=== PATIENT | female | born 1970 | race Caucasian/White ===

== ENCOUNTER 2022-11-30 13:54 | Outpatient (CLI) | payer OTHER, SELFPAY | END 2022-11-30 13:55 | disposition home or self-care (01) | PROVIDERS: PCP Nurse Practitioner Family; Visit Provider Nurse Practitioner Family | DX: N95.1 Menopausal and female climacteric states (principal); Z13.0 Encounter for screening for diseases of the blood and blood-forming organs and certain disorders involving the immune mechanism | CPT/HCPCS: 82670; 82728; 83001; 83002; 84443; 84480; 85025 ==

== ENCOUNTER 2022-12-17 10:06 | Outpatient (CLI) | payer OTHER, SELFPAY | END 2022-12-17 10:07 | disposition home or self-care (01) | PROVIDERS: PCP Nurse Practitioner Family; Visit Provider Nurse Practitioner Family | DX: Z13.6 Encounter for screening for cardiovascular disorders (principal); Z13.1 Encounter for screening for diabetes mellitus | CPT/HCPCS: 80061; 82947 ==

== ENCOUNTER 2023-06-15 13:25 | Outpatient (CLI) | payer OTHER, SELFPAY | END 2023-06-15 13:26 | disposition home or self-care (01) | PROVIDERS: PCP Nurse Practitioner Family; Visit Provider Nurse Practitioner Family | DX: M16.11 Unilateral primary osteoarthritis, right hip (principal); Z95.2 Presence of prosthetic heart valve; Z79.01 Long term (current) use of anticoagulants | CPT/HCPCS: 80053; 85025 ==

== ENCOUNTER 2023-09-30 08:34 | Outpatient (CLI) | payer OTHER, SELFPAY ==
--- OUTSIDE RECORDS SUMMARY | 2023-09-30 08:38 | XMS_ITS | Encounter Summary ---
Author Organization [facility] Address [address] [place] [address] Care Team Providers Care Residential Sales Rep Name Role Phone Willow Guajardo M.D. Primary Care Provider [phone] Reason for Visit * Physical Therapy (Routine) - Authorized Specialty Diagnoses / Procedures Referred By Alexx espinoza Referred To Contact Diagnoses Aftercare Total Hip Arthroplasty Procedures PT Ongoing treatment Symone Trujillo APRN, C.N.P., D.N.P. [address] [place] [phone] [facility] Region Referral ID Status Reason Start Date Expiration Date V isits Requested Visits Authorized [id number] Authorized 07/21/2023 03/07/2024 99 [phone] Encounter Details Date Type Department Care Team (Latest Contact Info) Description 09/22/2023 11:45 AM CDT Clinical Support Department of Rehabilitation Services in [address] [phone] Symone Trujillo APRN, C.N.P., D.N.P. [address] [place] [phone] Sonali Morrison P.T. Aftercare Total Hip Arthroplasty Social History Tobacco Use Types Packs/Day Years Used Date Smoking Tobacco: Never Passive Smoke Exposure: Never Smokeless Tobacco: Never Alcohol Use Standard Drinks/Week Comments Not Currently 0 (1 standard drink = 0.6 oz pure alcohol) 1 drink approx every 2 weeks. [facility] [employer] Answer Date Recorded In the past 12 months has e [employer], gas, oil, or water [employer] threatened to shut off services in your home? No 07/14/2023 Humiliation, Afraid, Rape, and Kick questionnair e Answer Date Recorded Within the last year, have y ou been afraid of your partner or ex-partner? No 07/14/2023 Within the last year, have y ou been humiliated or emotionally abused in other ways by your partner or ex-partner? Yes Within the last year, have y ou been kicked, hit, slapped, or otherwise physically hurt by your partner or ex-partner? No 07/14/2023 Within the last year, have y ou been raped or forced to have any kind of sexual activity by your partner or ex-partner? No 07/14/2023 Social Connection and Isolat ion Panel [NHANES] Answer Date Recorded In a typical week, how many times do you talk on the phone with family, friends, or neighbors? More than three times a week 03/05/2022 How often do you get togethe r with friends or relatives? Once a week 03/05/2022 How often do you attend chur or temple services? Patient declined 03/05/2022 Do you belong to any clubs o r organizations such as mormonism groups, unions, fraternal or athletic groups, or school groups? No 03/05/2022 How often do you attend meet ings of the clubs or organizations you belong to? Never 03/05/2022 Are you , , di vorced, , never , or living with a partner? 03/05/2022 AUDIT-C Answer Date Recorded Q1: How often do you have a drink containing alc ohol? Monthly or less 03/05/2022 Q2: How many drinks containi ng alcohol do you have on a typical day when you are drinking? 1 or 2 03/05/2022 Q3: How often do you have si x or more drinks on one occasion? Never 03/05/2022 Overall Financial Resource Strain (CARDIA) Answe r Date Recorded How hard is it for you to pa y for the very basics like food, housing, medical care, and heating? Not hard at all 03/05/2022 PHQ-2 Answer Date Recorded PHQ-2 Score 0 11/18/2021 [facility] - Occupational Stress Questionnaire Answer Date Recorded Do you feel stress - tense, restless, nervous, or anxious, or unable to sleep at night because your mind is troubled all the time - these days? Not at all 03/05/2022 Exercise Vital Sign Answer Date Recorde d On average, how many days pe r week do you engage in moderate to strenuous exercise (like a brisk walk)? 5 days 04/04/2023 On average, how many minutes do you engage in exercise at this level? 30 min 04/04/2023 Hunger Vital Sign Answer Date Recorded Within the past 12 months, y ou worried that your food would run out before you got the money to buy more. Never true 07/14/19 Within the past 12 months, t he food you bought just didn't last and you didn't have money to get more. Never true 07/14/2023 PRAPARE - Transportation Answer Date Re corded In the past 12 months, has l ack of transportation kept you from medical appointments or from getting medications? No 10/2023 In the past 12 months, has l ack of transportation kept you from meetings, work, or from getting things needed for daily living? No 07/14/2023 Nutrition Answer Date Recorded On average, how many serving s of fruits and vegetables do you eat per day (serving size is equal to 1 cup or approximately the size of a tennis ball)? 3-5 04/04/2023 Dental Answer Date Recorded Dental: Regular Dentist Yes 04/02/20 24 Employment Answer Date Recorded Employment status Employed and actively working without restrictions 04/04/2023 Housing Stability Answer Date Recorded What is your living situation today? I have a [facility] place to live 07/14/2023 Education Answer Date Recorded What is the highest level of school you have completed or the highest degree you have received? Bachelor's degree (e.g., BA, AB, BS) 12/03/2018 Sex and Gender Information Value Date Recorded Sex Assigned at Female 06/08/2023 10:37 AM CDT Gender Identity Female 06/08/2023 10:37 AM CDT Sexual Orientation Straight 06/08/2023 10 :37 AM CDT documented as of this encounter Progress Notes * Sonali Morrison PClarenceT. - 09/22/2023 11:45 AM CDT Physical Therapy Outpatient Treatment Note SUBJECTIVE Patient's Name: Meeta Urbina Patricia Referring Provider: Symone Trujillo APRN, C.N.* Visit Diagnosis: 1. Aftercare Total Hip Arthroplasty Payor: [facility] / Plan: [facility] CARE / Product Type: Medicaid HMO / No data recorded Epic Visit Count: 9 Patient comments: pt presents to PT reporting continued improvements. States that now she is walking her dogs which is going well. States she has noticed however her right knee seems very tight and she is having pain with bending it fully and can't kneel on it very well. Also patient reports that she was pushing to standing through her arms and felt like a ripping sensation through her left lowerrib area so she took some time off all exercises and is having improvement overall in this area over the past few days. OBJECTIVE Pain: 1/10 on average Ortho Exam Tenderness right lateral hip - diminished today Improved scar mobility with distal inch of scar from incision having the most adhesions Left knee ROM: 142 degree, Right knee ROM: 137 degrees with end range tightness noted TREATMENT Treatment today consisted of: Therapeutic Exercise: SciFit x 10 min level #2 with seat high to avoid a greater hip angle - no pain with this today heel cord stretch off edge of bottom stair x 45 sec Standing hip flexor stretch B on floor and with foot on 2nd step of stairway 30'' each Standing exs holding onto parallel bars: Side and forward step ups x 15 right Standing hip abduction x 10 ea -- with 3 lb ankle wt Standing hip extension x 10 ea --with 3 lb ankle wt Standing hip flexion x 10 ea with 3 lbs ankle wt Mini squat x 15 - at home - going well pt reports toe raises standing erect x 20 heel raises at 45 degree angle x 20 standing glute squeeze Seated heel slide x 20 reps Supine ankle pumps x 20 Supine glute sets x 20 Sit<>stand - pt doing well with this *NBOS on foam pad- not today *quad sets with towel under knee x 15 - at home *quad sets moving into SLR flexion - trial next visit *Supine heel slide with end range hold to maintain stretch to right knee Reviewed verbally: supine hip ER into orange band with legs straight and band around feet x 20 reps- this is going well Home Exercise Program/Education: above routine daily and walking frequently during the day Patient reports good HEP compliance. MANUAL: STM right hip musculature around surgical incision and superior IT band, pt in left sidelying with 2 pillows between knees and this was very comfortable - CFM to scar for improved scar mobility - last 1 inch of scar having most adhesions today Assessment Clinical Impression: Patient presents to physical therapy with signs and symptoms consistent with s/p right KRISTINE on 07/14/23. Functional Goals and Timeframes: PT Goal #1: Patient will be able to ambulate without AD for 1000 feet or greater without limp or pain. PT Goal #1 Date: 10/06/23 PT Goal #2: Patient will have WNL AROM and strength right hip in order to return to PLOF. PT Goal #2 Date: 10/06/23 PT Goal #3: Patient will tolerate a full squat without right hip or groin pain. PT Goal #3 Date: 10/06/23 PT Goal #4: Patient will be I in HEP for right hip s/p KRISTINE to return to PLOF. PT Goal #4 Date: 10/06/23 Plan Plan for next session: con't per s/p KRISTINE pathway, con't focus on right knee ROM next session Time Spent with Patient Therapeutic Interventions Manual Therapy (min): 20 min Therapeutic Exercise (min): 35 min Time Tracking Total Timed Units (min): 55 min Total Treatment Time (min): 55 min documented in this encounter Plan of Treatment Upcoming Encounters Date Type Department Care Team (Latest Contact Info) Description 10/04/2023 9:15 AM CDT Anticoagulation Visit Department of Anticoagulation in [place], [place] [address] [place] [address] Willow Guajardo M.D. [address] [place] [phone] 10/05/2023 8:45 AM CDT Clinical Support Department of Rehabilitation Services in [address] [phone] Symone Trujillo APRN, C.N.P., D.N.P. [address] [place] [phone] Sonali Morrison, P.TClarence 10/25/2023 8:30 AM CDT Clinical Support Department of Rehabilitation Services in [address] [phone] Symone Trujillo APRN, C.N.P., D.N.P. [address] [place] [phone] Sonali Morrison, P.T. 12/16/2023 10:00 AM CDT Appointment Department of Radiology in [address] [phone] Phani Cook M.D. [address] [place] [phone] Discharge Disposition: Home or Self Care 12/20/2023 1:45 PM CDT Office Visit Department of Cardiovascular Diseases in [address] [place] [phone] Phani Cook M.D. 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 [address] [place] [address] [place] [phone] PCP - General Family Medicine 03/28/[address] [place] [address] 10/11/17 documented as of this encounter
--- OUTSIDE RECORDS SUMMARY | 2023-09-30 08:38 | XMS_ITS | Encounter Summary ---
Author Organization [facility] Address [address] [place] [address] Care Team Providers Care Workers Compensation Manager Name Role Phone Willow Guajardo M.D. Primary Care Provider [phone] Reason for Visit * Physical Therapy (Routine) - Authorized Specialty Diagnoses / Procedures Referred By Alexx espinoza Referred To Contact Diagnoses Aftercare Total Hip Arthroplasty Procedures PT Ongoing treatment Symone Trujillo APRN, C.N.P., D.N.P. [address] [place] [phone] [facility] Region Referral ID Status Reason Start Date Expiration Date V isits Requested Visits Authorized [id number] Authorized 07/21/2023 03/07/2024 99 99 Encounter Details Date Type Department Care Team (Latest Contact Info) Description 09/07/2023 12:30 PM CDT Clinical Support Department of Rehabilitation Services in [address] [phone] Symone Trujillo APRN, C.N.P., D.N.P. [address] [place] [phone] Sonali Morrison P.T. Aftercare Total Hip Arthroplasty Social History Tobacco Use Types Packs/Day Years Used Date Smoking Tobacco: Never Passive Smoke Exposure: Never Smokeless Tobacco: Never Alcohol Use Standard Drinks/Week Comments Not Currently 0 (1 standard drink = 0.6 oz pure alcohol) 1 drink approx every 2 weeks. [facility] [employer] Answer Date Recorded In the past 12 months has e [employer], gas, oil, or water [employer] threatened to shut off services in your [...] How often do you attend chur or anabaptist services? Patient declined 03/05/2022 Do you belong to any clubs o r organizations such as alevism groups, unions, fraternal or athletic groups, or [...] Answer Date Recorded PHQ-2 Score 0 11/18/2021 [facility] Occupat ional Health - Occupational Stress [...] this encounter Progress Notes * Sonali Morrison PNorman. - 09/07/2023 12:30 PM CDT Physical Therapy Outpatient Treatment Note SUBJECTIVE Patient's Name: Meeta Urbina Patricia Referring Provider: Symone Trujillo APRN, C.N.* Visit Diagnosis: 1. Aftercare Total Hip Arthroplasty Payor: [facility] / Plan: [facility] CARE / Product Type: Medicaid HMO / No data recorded Epic Visit Count: 8 Patient comments: pt presents to PT doing well today. Patient states she has questions on her limits on rotations and flexion with her hip motion in the usp and when she can do these things. Reports walking continues to go well without any AD needed and driving is also going well without any pain. OBJECTIVE Pain: 1/10 on average Ortho Exam Tenderness right lateral hip - diminished today Improved scar mobility with distal inch of scar from incision having the most adhesions TREATMENT Treatment today consisted of: Therapeutic Exercise: [...] *quad sets moving into SLR flexion - not today - will trail next visit Reviewed verbally: supine hip ER into orange [...] for next session: con't per s/p KRISTINE pathway Time Spent with Patient Therapeutic Interventions Manual Therapy (min): 20 min Therapeutic Exercise (min): 25 min Time Tracking Total Timed Units (min): 45 min Total Treatment Time (min): 45 min documented in this encounter Plan of Treatment Upcoming Encounters Date Type Department Care Team (Latest Contact Info) Description 10/04/2023 9:15 AM CDT Anticoagulation Visit Department of Anticoagulation in [place], [place] [address] [place] [phone] Willow Guajardo M.D. [address] [place] [phone] 10/05/2023 8:45 AM CDT Clinical Support Department of Rehabilitation Services in [address] [phone] Symone Trujillo APRN, C.N.Jigar., D.N.P. [address] [place] [phone] Sonali Morrison P.TClarence 10/25/2023 8:30 AM CDT Clinical Support Department of Rehabilitation Services in [address] [phone] Symone Trujillo APRN, C.N.Jigar., D.N.P. [address] [place] [phone] Sonali Morrison P.T. 12/16/2023 10:00 AM CDT Appointment Department of Radiology in [address] [phone] Phani Cook M.D. [address] [place] [phone] Discharge Disposition: Home or Self Care 12/20/2023 1:45 PM CDT Office Visit Department of Cardiovascular Diseases in [address] [phone] Phani Cook M.D. 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 [address] [place] [phone] PCP - General Family Medicine 03/28/[address] [address] 10/11/17 documented as of this encounter
--- OUTSIDE RECORDS SUMMARY | 2023-09-30 08:38 | XMS_ITS | Encounter Summary ---
Author Organization [facility] Address [address] [place] [address] Care Team Providers Care Wagon Person Name Role Phone Willow Guajardo M.D. Primary Care Provider Reason for Visit * Physical Therapy (Routine) - Authorized Specialty Diagnoses / Procedures Referred By Alexx espinoza Referred To Contact Diagnoses Aftercare Total Hip Arthroplasty Procedures PT Ongoing treatment Symone Trujillo APRN, C.N.P., D.N.P. [address] [place] [phone] [facility] Region Referral ID Status Reason Start Date Expiration Date V isits Requested Visits Authorized [id number] Authorized 07/21/2023 03/07/2024 99 99 Encounter Details Date Type Department Care Team (Latest Contact Info) Description 09/29/2023 11:45 AM CDT Clinical Support Department of Rehabilitation Services in [address] [phone] Symone Trujillo APRN, C.N.P., D.N.P. [address] [place] [phone] Sonali Morrison P.T. Aftercare Total Hip Arthroplasty Social History Tobacco Use Types Packs/Day Years Used Date Smoking Tobacco: Never Passive Smoke Exposure: Never Smokeless Tobacco: Never Alcohol Use Standard Drinks/Week Comments Not Currently 0 (1 standard drink = 0.6 oz pure alcohol) 1 drink approx every 2 weeks. [facility] [employer] Answer Date Recorded In the past 12 months has e [employer], gas, oil, or water [employer] threatened to shut off services in your [...] How often do you attend chur or buddhism services? Patient declined 03/05/2022 Do you belong to any clubs o r organizations such as yazdanism groups, unions, fraternal or athletic groups, or [...] Answer Date Recorded PHQ-2 Score 0 11/18/2021 [facility] of Occupat ional Health - Occupational [...] your living situation today? I have a [facility] place to live 07/14/2023 Education Answer Date [...] AM CDT documented as of this encounter Plan of Treatment Upcoming Encounters Date Type Department Care Team (Latest Contact Info) Description 10/04/2023 9:15 AM CDT Anticoagulation Visit Department of Anticoagulation in [place], [place] [address] [place] [address] Willow Guajardo M.D. [address] [place] [phone] 10/05/2023 8:45 AM CDT Clinical Support Department of Rehabilitation Services in [address] [phone] Symone Trujillo APRN, C.N.P., D.N.P. [address] [place] [phone] Sonali Morrison, P.T. 10/25/2023 8:30 AM CDT Clinical Support Department of Rehabilitation Services in [address] [phone] Symone Trujillo APRN, C.N.P., D.N.P. [address] [place] [phone] Sonali Morrison, P.T. 12/16/2023 10:00 AM CDT Appointment Department of Radiology in [address] [phone] Phani Cook M.D. [address] [place] [phone] Discharge Disposition: Home or Self Care 12/20/2023 1:45 PM CDT Office Visit Department of Cardiovascular Diseases in [address] [phone] Phani Cook M.D. 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 [address] [place] [phone] PCP - General Family Medicine 03/28/[address] [address] 10/11/17 documented as of this encounter
--- OUTSIDE RECORDS SUMMARY | 2023-09-30 08:38 | XMS_ITS | Encounter Summary ---
Author Organization [facility] Address [address] [place] [address] Care Team Providers Care Applied Exercise Physiologist Name Role Phone Willow Guajardo M.D. Primary Care Provider [phone] Reason for Visit * Outpatient (Routine) - Closed Specialty Diagnoses / Procedures Referred By Alexx espinoza Referred To Contact Anticoagulation Diagnoses Extruder Tender (Current) Anticoagulant Treatment Monitoring For Therapeutic Drug Therapy Prosthesis Aortic Valve Willow Guajardo M.D. [address] [phone] [facility] Region Referral ID Status Reason Start Date Expiration Date Visits Re quested Visits Authorized [id number] Closed 01/06/2021 01/06/[phone] Encounter Details Date Type Department Care Team (Latest Contact Info) Description 09/13/2023 8:45 AM CDT Anticoagulation Visit Department of Anticoagulation in [place], [place] [address] [place] [phone] Willow Guajardo M.D. [address] [phone] Extruder Tender (Current) Anticoagulant Treatment; Monitoring For Therapeutic Drug Therapy; Prosthesis Aortic Valve Social History Tobacco Use Types Packs/Day Years Used Date Smoking Tobacco: Never Passive Smoke Exposure: Never Smokeless Tobacco: Never Alcohol Use Standard Drinks/Week Comments Not Currently 0 (1 standard drink = 0.6 oz pure alcohol) 1 drink approx every 2 weeks. [facility] Utilities Answer Date Recorded In the past 12 months has [employer], [employer], or water [employer] threatened to shut off services in your [...] How often do you attend chur or adventist services? Patient declined 03/05/2022 Do you belong to any clubs o r organizations such as rastafari groups, unions, fraternal or athletic groups, or [...] Answer Date Recorded PHQ-2 Score 0 11/18/2021 [facility] - Occupational Stress Questionnaire Answer Date Recorded [...] Answer Date Recorded Dental: Regular Dentist Yes 06/08/19 Employment Answer Date Recorded Employment status Employed and actively working without restrictions 04/04/2023 Housing Stability Answer Date Recorded What is your living situation today? I have a [facility] place to live 07/14/2023 Education Answer Date [...] AM CDT documented as of this encounter Patient Instructions * Patient Instructions* Sindy Braun R.N. - 09/13/2023 8:45 AM CDT The day before your next INR review you will receive a message via Patient Online Service (portal) asking you to report your INR results and complete an attached questionnaire. Your INR is high placing you at increased risk for bleeding. Please refer to the attached anticoagulation visit summary for a list of reasons to notify your anticoagulation team or seek emergency assistance. Please continue to test your INR weekly and contact the anticoagulation clinic on the day of testing if your INR falls outside of goal range or if your INR changes by 1.0 or greater in a week. You will need to call the Anticoagulation Program for warfarin dosing at the scheduled time for your nurse visit, as indicated on your Patient Appointment Guide (PAG). To reschedule your appointment or for questions about your warfarin, please call Primary Care Anticoagulation Program at [phone] from 7:30 am to 4:30 pm. Wednesday-Wednesday . When To Contact Your Health Care Provider If you are experiencing any of the following symptoms, Call 911 or go to the emergency room: chest pain, shortness of breath, vomiting or coughing up blood, large amounts of rectal bleeding, symptomsof a stroke- sudden weakness or inability to move a body part (the face, arm or leg), difficulty speaking or trouble understanding others, sudden blurred, decreased vision, or double vision, dizziness, loss of balance /coordination or a sudden, severe headache. If you fall and or hit your head or suffer a blow to the head, seek emergency treatment. Contact your health care provider about your Warfarin dose: Before any surgical procedures (including tooth extractions) and certain non- surgical procedures (for example, colonoscopies). When you are sick with a fever or develop persistent diarrhea or vomiting. If you doubt that you took your Warfarin as directed. If you start an antibiotic or any prescription drug or if you start any herbal or other [id number] product (check with your doctor, a nurse, or pharmacist). If you change your diet significantly. If you decide to stop or start using tobacco or alcohol. If you notice unusual bruising or bleeding. If you notice dark, tarry, or bright red stools or blood in your urine. If you have a painful and swollen calf. documented in this encounter Progress Notes * Sindy Braun R.N. - 09/13/2023 8:45 AM CDT Warfarin Maintenance Nursing Protocol Goal Range NON-STANDARD (version approved 04/2021) Visit Type: Telephone and Home/Self Test INR Primary reason for visit: Home INR weekly INR, out of range Information provided by:patient INR result: 2.5 Goal range: 1.5-2.0 Inclusion Criteria: All inclusion criteria met. Proceeded to exclusion criteria. Exclusion Criteria: Section 1: No Section 1 exclusion criteria, proceeded to Section 2. Section 2: No Section 2 exclusion criteria, proceeded to screening criteria. Screening Criteria: Patient is currently enrolled in Home INR Program. Proceeded to maintenance warfarin dosing and follow-up, but follow-up INR not to extend beyond Home INR follow-up order. Additional Info: Home INR Program: Patient performs routine INRs weekly on Wednesday Next routine monthly appointment for INR review (date/time): 10/04/2023. Patient will initiate contact to Anticoagulation Service if INR out of goal range on day of Home INR check OR if INR is higher or lower than last INR by 1 or more. Previous INR was supratherapeutic. Today???s INR is Supratherapeutic, Causes: Unknown. Dosing and follow up recommendation: Protocol dosing range for INR is 0.5 or more above goal range: Consulted Anticoagulation [facility] for plan. Additional dosing or follow-up information: None. Pt is on injectable anticoagulant: No. Plan used: Consult. See Anticoagulation Track Calendar for dosing and plan details. Anticoagulation Visit Summary: Patient repeats back dosing instructions, date of next INR, and has no further questions at this time. Total time spent with patient: N/A documented in this encounter Plan of Treatment Upcoming Encounters Date Type Department Care Team (Latest Contact Info) Description 10/04/2023 9:15 AM CDT Anticoagulation Visit Department of Anticoagulation in [address] [phone] Willow Guajardo M.D. [address] [place] [phone] 10/05/2023 8:45 AM CDT Clinical Support Department of Rehabilitation Services in [address] [phone] Symone Trujillo APRN, C.N.P., D.N.P. [address] [place] [phone] Sonali Morrison P.T. 10/25/2023 8:30 AM CDT Clinical Support Department of Rehabilitation Services in [address] [phone] Symone Trujillo APRN, C.N.P., D.N.P. [address] [place] [phone] Sonali Morrison P.T. 12/16/2023 10:00 AM CDT Appointment Department of Radiology in [address] [phone] Phani Cook M.D. [address] [place] [phone] Discharge Disposition: Home or Self Care 12/20/2023 1:45 PM CDT Office Visit Department of Cardiovascular Diseases in [address] [phone] Phani Cook M.D. [address] [place] [phone] documented as of this encounter Procedures Procedure Name Priority Date/Time Associated Diagnosis Comments PROTHROMBIN TIME (PT), P Routine 09/13/2023 documented in this encounter Results * Prothrombin Time (PT) (09/13/2023) EXT INR 2.50 PATIENT PO INT OF CARE DEVICE Comment:SELF Blood (Blood, Venous) Narrative Resulting Agency Comment HOME INR Historical Provider LAB BLOOD ADD-ON Performing Organization Address City/State/[facility] Co de Phone Number PATIENT POINT OF CARE DEVICE documented in this encounter Visit Diagnoses Diagnosis Extruder Tender (Current) Anticoagulant Treatment Monitoring For Therapeutic Drug Therapy Prosthesis Aortic Valve documented in this encounter Additional Health Concerns Assessment Noted Time PHQ-9 Depression Total Score: 2 02/24/20 18 2:31 PM CORPORATE LEGAL ASSISTANT documented as of this encounter Care Teams Applied Exercise Physiologist Relationship Specialty Start Date End Date Willow Guajardo M.D. [address] [place] [phone] PCP - General Family Medicine 03/28/[address] [place] [address] 10/11/17 documented as of this encounter
--- OUTSIDE RECORDS SUMMARY | 2023-09-30 08:38 | XMS_ITS | Clinical Summary ---
Author Organization [facility] Address [address] [place] [address] Care Team Providers Care Archeologist Name Role Phone Willow Guajardo M.D. Primary Care Provider [phone] Source Comments Patient records contain information from all sites at [facility]. For routine questions regarding patient records, call [phone] during business hours, M-F 8:00 AM - 5:00 PM Central Time. Record requests for emergency care only can be directed to [phone] at any time.[facility] Allergies Active Allergy Reactions Criticality Noted Date Comments Cyclobenzaprine Other (see comments) Medium 12/22/2021 Jitteriness and feeling, wired. Gabapentin Hallucinations Medium 09/06/2018 Hallucinations Medications Medication Sig Dispensed Refills Start Date End Date Status aspirin 81 mg chewable tablet Chew 1 tablet (81 mg total) daily. 10/13/19 Active prothrombin time/INR miscIndications:L ted Term (Current) Anticoagulant Treatment,Monitor ing For Therapeutic Drug Therapy,Prosthesi s Aortic Valve Pt scheduled for Home monitoring education 12/17/18. 1 each 12/10/20 18 Active lancetsIndication s:Monitoring For Therapeutic Drug Therapy,Prosthesi s Aortic Valve For use with home INR monitoring device. Use to test INR weekly and as needed per direction of the INR Clinic 100 each 04/01/19 21 Active omega-3 fatty acids-fish oil 300-1,000 mg capsule Take 2 g by mouth every other day. Active multivitamin capsule Take 1 capsule by mouth daily. Active cholecalciferol (VITAMIN D3) 125 mcg (5,000 Unit) tablet Take 1 tablet by mouth every other day. 06/15/19 21 Active B complex-vitamin (SUPER B-50) capsule Take 1 capsule by mouth daily. Liquid form. Active prothrombin time stripIndications: Monitoring For Therapeutic Drug Therapy,Prosthesi s Aortic Valve Use to test INR weekly and as needed per direction of the INR Clinic 400 strip 1 02/04/20 22 Active warfarin (JANTOVEN) 2 mg tablet Please take as directed by your Anticoagulation Clinic. 145 tablet 3 11/18/19 23 Active Additional Information Patient taking differently: As Directed, Please take as directed by your Anticoagulation Clinic. 3 mg 5 X weekAnd 4 mg and Wednesday., Informant: Self, Reported on 07/14/2023 azithromycin (ZITHROMAX) 500 mg tablet Take 500 mg by mouth as needed (as needed). Prior to dental procedures. 08/05/19 23 Active calcium carbonate 1,250 mg (500 mg calcium) tablet Take 500 mg of calcium by mouth every other day. Active acetaminophen (TYLENOL) 500 mg tablet Take 2 tablets (1,000 mg total) by mouth every 6 (six) hours. 07/15/19 24 Active zolpidem (AMBIEN) 10 mg tablet Take 0.5 tablets (5 mg total) by mouth at bedtime as needed for sleep. 07/15/19 24 Active zolpidem (Ambien) 10 mg tablet Take 1 tablet (10 mg total) by mouth at bedtime as needed for sleep. 90 tablet 1 09/29/19 24 Active zolpidem (AMBIEN) 10 mg tablet Take 1 tablet (10 mg total) by mouth at bedtime as needed for insomnia. 90 tablet 1 02/16/20 23 024 Discontinued(Re order) sennosides-docusa te sodium (SENOKOT-S) 8.6-50 mg per tablet Take 1 tablet by mouth 2 (two) times a day. 100 tablet 07/15/19 24 024 Discontinued oxyCODONE (ROXICODONE) 5 mg immediate release tabletIndications :Prolonged Acute Pain/Traumatic Injury Take 1-2 tablets (5-10 mg total) by mouth every 4 (four) hours as needed for pain Indication: Prolonged Acute Pain/Traumatic Injury. 40 tablet 07/20/19 24 024 Discontinued Active Problems Patient Care Coordination No te Formatting of this note migh t be different from the original. We are writing to inform you that your patient, Meeta Villanueva, has chosen to participate in the PROACT Xa trial. This is a multicenter, randomized clinical trial, authorized by the FDA, that compares apixaban to warfarin for the anticoagulation of patients who have an On-X prosthetic aortic valve. The trial will randomize participants who have had an On-X aortic valve implanted at least 3 months ago to either apixaban or warfarin (INR goal 2-3). After randomization, participants will be followed closely for at least 2 years to assess for any valve thrombosis, valve-related thromboembolic, or bleeding events. Your patient was randomly assigned to the warfarin arm and will be provided with study drug (open-label warfarin). As such, (s)he will continue to require routine INR monitoring, at least monthly, through the completion of the trial. The target INR range in the warfarin arm is 2-3, and as such the lower INR range of 1.5-2 will not be acceptable during the course of the study. Given the challenges associated with long-term warfarin use, including both ocogkuj-cz-oumu factors as well as difficulties maintaining a consistently therapeutic INR, the possibility of being able to safely manage mechanical valve patients with a DOAC, like apixaban, has the potential to greatly improve the future care of these patients. The PROACT Xa trial is sponsored by [employer], and the finalized study protocol was developed by the [employer] [place] ([employer]) with the approval of the FDA. You can read more about the study at ClinicalTrials.gov [employer] PROACT Xa NCT [id number]. If you have any questions or concerns, please do not hesitate to contact us. Eloisa Choi Pharmacy Technician Program Director [phone] [email or web address] Maite Lan Pharmacy Technician Program Director [phone] [email or web address] Dr. [email or web address] Theodore [phone] [email or web address] Dr. [email or web address] Edge [phone] [email or web address] Problem Noted Date Diagnosed Date Primary Osteoarthritis Hip Right 05/03/2023 Allergy Seasonal 04/03/2020 Replacement Aortic Valve Tissue 04/03/2020 Anisocoria 04/03/2020 Dizziness 04/03/2020 Headache Unspecified 04/03/2020 Halfway Anticoagulant Treatment [Z79.01] 10/26 Monitoring For Therapeutic Drug Therapy [Z51.81] 10/26/2017 Prosthesis Aortic Valve 10/11/2017 Overview (10/11/2017): On-X valve Prosthesis Heart Valve 10/11/2017 Overview (04/03/2020): Overview: Overview: On-X valve Stenosis Regurgitation Mixed Mitral Aortic 10/07 Fibroid Uterus Submucous 09/23/2017 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/23/2017): Left eye Constipation 09/23/2017 Allergy Penicillin Antibiotic Personal History 0 07/06/2017 Sacrococcygeal Disorders Not Elsewhere Classifie d 05/31/2017 Urticaria 05/31/2017 Osteoarthritis 06/17/2016 Overview (06/04/2017): Right knee Migraine Headache 03/10/2016 Murmur Systolic 10/15/2015 Murmur Heart 10/14/2015 Infertility Female 01/15/2011 Pain Shoulder Right Pelvic Joint Disorder Right Pain Joint Ankle Left Pain Hip Left Resolved Problems Problem Noted Date Diagnosed Date Resolved Date Stenosis Aortic Valve Acquired 10/07/2017 10/11/2017 Bicuspid Aortic Valve 10/28/20152017 Encounters Date Type Department Care Team Description 09/29/2023 11:45 AM CDT Clinical Support Department of Rehabilitation Services in [address] [phone] Symone Trujillo APRN, C.N.P., D.N.P. Sonali Morrison, P.T. Aftercare Total Hip Arthroplasty 09/22/2023 11:45 AM CDT Clinical Support Department of Rehabilitation Services in [address] [phone] Symone Trujillo APRN, Lauren.N.P., Maddi.N.P. Sonali Morrison, P.T. Aftercare Total Hip Arthroplasty 09/13/2023 8:45 AM CDT Anticoagulation Visit Department of Anticoagulation in [address] [phone] Willow Guajardo M.D. Tire Curer (Current) Anticoagulant Treatment; Monitoring For Therapeutic Drug Therapy; Prosthesis Aortic Valve 09/07/2023 2:00 PM CDT Office Visit Department of Orthopedic Surgery in [address] [phone] Мария Holliday APRN, C.N.PClarence, Maddi.N.P. Arthroplasty Total Hip Replacement Status Post Right (Primary Dx); Follow Up Examination Postoperative Visit Discharge Disposition: Home or Self Care 09/07/2023 12:30 PM CDT Clinical Support Department of Rehabilitation Services in [address] [phone] Symone Trujillo APRN, C.N.P., D.N.P. Sonali Morrison, P.T. Aftercare Total Hip Arthroplasty 09/06/2023 11:30 AM CDT Anticoagulation Visit Department of Anticoagulation in [address] [phone] Willow Guajardo M.D. Prosthesis Aortic Valve (Primary Dx); Halfway Anticoagulant Treatment [Z79.01]; Monitoring For Therapeutic Drug Therapy [Z51.81] 09/01/2023 12:30 PM CDT Clinical Support Department of Rehabilitation Services in [address] [phone] Symone Trujillo APRN, C.N.PClarence, Maddi.N.P. Sonali Morrison, P.T. Aftercare Total Hip Arthroplasty 08/25/2023 12:30 PM CDT Clinical Support Department of Rehabilitation Services in [address] [phone] Symone Trujillo APRN, Lauren.N.PClarence, Maddi.N.P. Sonali Morrison, P.T. Aftercare Total Hip Arthroplasty 08/18/2023 12:30 PM CDT Clinical Support Department of Rehabilitation Services in [address] [phone] Symone Trujillo APRN, C.N.Nusrat, Maddi.N.PSonali Leavitt P.T. Aftercare Total Hip Arthroplasty 08/16/2023 10:45 AM CDT Anticoagulation Visit Department of Anticoagulation in [address] [phone] Willow Guajardo M.D. Halfway (Current) Anticoagulant Treatment; Monitoring For Therapeutic Drug Therapy; Prosthesis Aortic Valve 08/11/2023 12:30 PM CDT Clinical Support Department of Rehabilitation Services in [address] [phone] Symone Trujillo APRN, Lauren.N.P., Maddi.N.PSonali Leavitt, P.TClarence Aftercare Total Hip Arthroplasty 08/09/2023 1:15 PM CDT Anticoagulation Visit Department of Anticoagulation in [address] [phone] Willow Guajardo M.D. Prosthesis Aortic Valve (Primary Dx); Tire Curer Anticoagulant Treatment [Z79.01]; Monitoring For Therapeutic Drug Therapy [Z51.81] 08/04/2023 8:45 AM CDT Clinical Support Department of Rehabilitation Services in [address] [phone] Symone Trujillo APRN, C.N.P., D.N.P. Sonali Morrison, P.T. Aftercare Total Hip Arthroplasty 08/04/2023 8:34 AM CDT - 08/04/2023 11:59 PM CDT Hospital Encounter Department of Radiology in [address] [phone] Louann Govea C.N.P. Screening Osteoporosis Discharge Disposition: Home or Self Care 08/03/2023 10:45 AM CDT Anticoagulation Visit Department of Anticoagulation in [address] [phone] Willow Guajardo M.D. Tire Curer (Current) Anticoagulant Treatment; Monitoring For Therapeutic Drug Therapy; Prosthesis Aortic Valve 07/27/2023 9:30 AM CDT Clinical Support Department of Rehabilitation Services in [address] [phone] Symone Trujillo APRN, C.N.PClarence, D.N.P. Sonali Morrison, P.TClarence Aftercare Total Hip Arthroplasty 07/27/2023 8:00 AM CDT Office Visit Department of Orthopedic Surgery in [address] [phone] Symone Trujillo APRN, C.N.Nusrat, Maddi.N.PClarence Aftercare Total Hip Arthroplasty (Primary Dx) Discharge Disposition: Home or Self Care 07/26/2023 10:00 AM CDT Anticoagulation Visit Department of Anticoagulation in [address] [phone] Willow Guajardo M.D. Prosthesis Aortic Valve (Primary Dx); Halfway Anticoagulant Treatment [Z79.01]; Monitoring For Therapeutic Drug Therapy [Z51.81] 07/21/2023 8:45 AM CDT Comprehensive Visit Department of Rehabilitation Services in [address] [phone] Symone Trujillo APRN, C.N.PAngelo Lima Marie F, P.T. Aftercare Total Hip Arthroplasty (Primary Dx); Pain Hip Right 07/19/2023 11:15 AM CDT Anticoagulation Visit Department of Anticoagulation in [place], [place] [address] [place] [address] Willow Guajardo M.D. Prosthesis Aortic Valve (Primary Dx); Tire Curer Anticoagulant Treatment [Z79.01]; Monitoring For Therapeutic Drug Therapy [Z51.81]; Aftercare Total Hip Arthroplasty 07/16/2023 Clinical Communication Department of Anticoagulation in [place], [place] [address] [place] [address] Khloe Russo R.N. Anticoagulation (Anticoagulation track updated s/p hospitalization) 07/15/2023 Abstract [place], [place] [address] [place] [address] Provider, Historical 07/14/2023 12:19 PM CDT Anesthesia Event Outpatient Procedure Center in [address] [phone] Charis Lee M.D. 07/14/2023 10:45 AM CDT - 07/14/2023 1:15 PM CDT Surgery Outpatient Procedure Center in [address] [phone] John Prater M.D. ROBOTIC-ASSISTED HIP TOTAL ARTHROPLASTY 07/14/2023 9:02 AM CDT - 07/15/2023 3:00 PM CDT Hospital Encounter [facility], Third Floor [address] [place] [phone] John Prater M.D. Aftercare Total Hip Arthroplasty (Primary Dx) Discharge Disposition: Home or Self Care 07/13/2023 11:30 AM CDT Office Visit Department of Integrative Medicine in [place], [place] [address] [place] [address] Мария Gilmore M.D. Hoffman, Michele R Discharge Disposition: Home or Self Care 07/12/2023 9:30 AM CDT Clinical Support Department of Rehabilitation Services in [address] [phone] Louann Govea C.N.P. Buchholtz, Marie F, P.T. Pain Pelvic Female 07/06/2023 10:00 AM CDT Telemedicine Department of Orthopedic Surgery in [address] [phone] Symone Trujillo APRN, C.N.P., Maddi.N.P. Silvestre Cook RInes. Preoperative Exam Discharge Disposition: Home or Self Care 07/06/2023 9:15 AM CDT Virtual Visit Preoperative Evaluation Center in [address] [phone] Symone Trujillo APRN, Lauren.N.P., D.N.P. Мария Frey, R.N. Preanesthetic Medical Exam (Primary Dx); Preoperative Exam Discharge Disposition: Home or Self Care 07/05/2023 12:30 PM CDT Clinical Support Department of Rehabilitation Services in [address] [phone] Louann Govea C.N.P. Buchholtz, Marie F, P.T. Pain Pelvic Female 07/05/2023 8:30 AM CDT Anticoagulation Visit Department of Anticoagulation in [address] [phone] Willow Guajardo M.D. Prosthesis Aortic Valve; Tire Curer Anticoagulant Treatment [Z79.01]; Monitoring For Therapeutic Drug Therapy [Z51.81] 07/02/2023 9:30 AM CDT Office Visit Department of Orthopedic Surgery in [address] [phone] Symone Trujillo APRN, Lauren.N.P., D.N.P. Primary Osteoarthritis Hip Right (Primary Dx) Discharge Disposition: Home or Self Care from Last 3 Months Immunizations Name Administration Dates Next Due H1N1 All Forms 02/07/2009 HepA Adult 11/28/2009,02/07/2009 HepB Adult 11/28/2009,03/11/2009,02/07/2009 Influenza (IM) Preservative Free 024(Deferred: Patient Refused - Pt. will receive later locally.) Influenza, Unspecified 01/02/2021 MMR 02/10/2012 RZV (SHINGRIX) 04/05/2023(Deferred: Patient Refused - Pt. will receive later locally.) SARS-COV-2 (COVID-19) - JANS SEN (J&J)(Discontinued) 06/13/2020 SARS-COV-2 (COVID-19) - PFIZ ER (Discontinued)(12 years or older) 01/13/2021 SARS-COV-2 (COVID-19) - PFIZ ER [id number] (12 YEARS OR OLDER) 04/05/2023(Deferred: Patient Refused - Refused.) Td Preservative Free (TENIVA C, DECAVAC) 08/06/2008,04/13/2003 Tdap 09/06/2018,08/06/2008,04/13/2003 Tetanus Toxoid, Adsorbed (discontinued) 08/06/2008,08/06/2008 TyVi (inj) 03/28/2019,12/21/2012 Typhoid, Unspecified 12/21/2012 PRISCA 03/13/2019,02/09/2019 influenza vaccine (FLUBLOK) (18 years or older) (PF) 11/06/2021 influenza vaccine quad (FLUZONE/FLUARIX) (6 months and older)(PF) 11/06/2021,01/02/2021,02/07/2009 typhoid vaccine, parenteral (discontinued) 12/21/2012 Family History Medical History Relation Name Comments Asthma Brother 1 Asthma Brother 2 Bright Asthma, high bl ood pressure Alcohol abuse Father Juan Carlos Asthma Father Juan Carlos Copd COPD Father Juan Carlos Coronary artery disease Father Juan Carlos Depression Father Juan Carlos Heart attack Father Juan Carlos Heart failure Father Juan Carlos Rheum arthritis Father Juan Carlos Skin cancer Father Juan Carlos Diabetes Grandfather 1 Lung cancer Grandfather 2 Maternal Diabetes Grandmother Hypertension Mother Melanie Migraines Mother Melanie Ovarian cancer Mother's Sister Bhakti Diabetes Paternal Grandfather Clearance Stroke Paternal Grandmother Aprli Relation Name Status Comments Brother 1 Brother 2 Bright Father Juan Carlos Grandfather 1 Grandfather 2 Maternal Grandmother Mother Melanie Mother's Sister Bhakti Paternal Grandfather Clearance Paternal Grandmother April Social History Tobacco Use Types Packs/Day Years Used Date Smoking Tobacco: Never Passive Smoke Exposure: Never Smokeless Tobacco: Never Tobacco Cessation:Counseling Given: Not Answered Alcohol Use Standard Drinks/Week Comments Not Currently 0 (1 standard drink = 0.6 oz pure alcohol) 1 drink approx every 2 weeks. [facility] [employer] Answer Date Recorded In the past 12 months has e [employer], oil, or water [employer] threatened to shut off services in your [...] How often do you attend chur or hindu services? Patient declined 03/05/2022 Do you belong to any clubs o r organizations such as pentecostalism groups, unions, fraternal or athletic groups, or [...] Answer Date Recorded PHQ-2 Score 0 11/18/2021 [facility] [place] of Occupat ional Health - Occupational Stress [...] money to buy more. Never true 07/14/19 24 Within the past 12 months, t he [...] your living situation today? I have a [facility] place to live 07/14/2023 Education Answer Date Recorded What is the highest level of school you have completed or the highest degree you have received? Bachelor's degree (e.g., BA, AB, BS) 12/03/2018 Sex and Gender Information Value Date Recorded Sex Assigned at Female 06/08/2023 10:37 AM CDT Gender Identity Female 06/08/2023 10:37 AM CDT Sexual Orientation Straight 06/08/2023 10 :37 AM CDT Last Filed Vital Signs Vital Sign Reading Time Taken Comments Blood Pressure 114/58 07/15/2023 2:45 PM CDT Pulse 77 07/15/2023 2:45 PM CDT Temperature 36.5 ??C (97.7 ??F) 07/15/2023 2:45 PM CD T Respiratory Rate 20 07/15/2023 2:45 PM CDT Oxygen Saturation 97% 07/15/2023 2:45 PM CDT Inhaled Oxygen Concentration - - Weight 72 kg (158 lb 11.7 oz) 07/15/2023 5:00 AM CDT Height 160 cm (5' 3) 07/14/2023 9:15 AM CDT Body Mass Index 28.12 07/14/2023 9:15 AM CDT Plan of Treatment Upcoming Encounters Date Type Department Care Team (Latest Contact Info) Description 10/04/2023 9:15 AM CDT Anticoagulation Visit Department of Anticoagulation in [place], [place] [address] [place] [address] Willow Guajardo M.D. [address] [place] [phone] 10/05/2023 8:45 AM CDT Clinical Support Department of Rehabilitation Services in [address] [phone] Symone Trujillo APRN, C.N.P., D.N.P. [address] [place] [phone] Sonali Morrison, P.TClarence 10/25/2023 8:30 AM CDT Clinical Support Department of Rehabilitation Services in [address] [phone] Symone Trujillo APRN, C.N.P., SiomaraN.P. [address] [place] [phone] Sonali Morrison P.T. 12/16/2023 10:00 AM CDT Appointment Department of Radiology in [address] [phone] Phani Cook M.D. [address] [place] [phone] Discharge Disposition: Home or Self Care 12/20/2023 1:45 PM CDT Office Visit Department of Cardiovascular Diseases in [place], [place] [address] [place] [phone] Phani Cook M.D. [address] [place] [phone] Health Maintenance Due Date Last Done Comments CT Colonography 1972 Colonoscopy 1972 FIT 1972 Hepatitis C Screening 1972 Zoster Vaccines (1 of 2) 2022 COVID-19 Vaccine (3 2022- season) 2022 01/13/2021, 06/13/2020 Depression Screening (Annual PHQ-2) 03/08/2023 Fasting Glucose for Diabetes Screening 11/21/2023 11/20/2020, 10/12/2017, 10/11/2017, Additional history exists Influenza Vaccine (#1) 2023 2, 11/06/2021, 01/02/2021, Additional history exists Cologuard 02/04/2024 02/03/2021, 01/20/2021 Colorectal Cancer Screening 02/04/2024 Mammogram 04/09/2024 04/09/2023, 06/2022, 11/18/2021, Additional history exists Lipid (Cholesterol) Screening 11/20/2025 11/20/2020, 03/03/2013 Cervical Cancer Screening 11/18/20262021, 11/18/2021, 09/06/2018, Additional history exists DTaP,Tdap,and Td Vaccines (5 - Td or Tdap) 09/06/2028 09/06/2018, 08/06/2008, 08/06/2008, Additional history exists Hepatitis A Vaccines Completed 11/28/2009, 02/08/20 09 Hepatitis B Vaccines Completed 11/28/2009, 03/11/2009, 02/07/2009 Varicella Vaccines Completed 03/13/2019, 02/09/2019 Pneumococcal vaccine (0-64 years) Aged Out No longer eligible based on patient's age to complete this topic Medical Devices Implanted Type 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 at [facility] Cardiac Valve Prosthesis N/A: Chest [employer] 11/16/2022 ONXANE-2 / [id number] / Description:MR conditional u p to 3T Normal scanning modes. Aortic valve replacement. Scrw Hex 6.5x25 - Sna - [id number] Implanted:Qty: 1 on 07/14/2023 by John Prater M.D. at [facility] Hip Implant Right: Hip [place] 05/04/2028 7030-652 5 / NA / [id number] Lnr X3 10d Szd 32 - Sna - [id number] Implanted:Qty: 1 on 07/14/2023 by John Prater M.D. at [facility] Hip Implant Right: Hip [place] 04/06/2028 723-10-3 2D / NA / [id number] Shll Acet Trd Chl 48d - Sna - [id number] Implanted:Qty: 1 on 07/14/2023 by John Prater M.D. at [facility] Hip Implant Right: Hip Billy [id number] 05/10/2028 702-04-4 8D / NA / [id number] A Hip Stm Acc Sz5 38n238 - Sna - [id number] Implanted:Qty: 1 on 07/14/2023 by John Prater M.D. at [facility] Hip Implant Right: Hip [place] 05/21/2028 6721-053 5 / NA / [id number] A Fem Hd Blx -4x32 - [id number] Implanted:Qty: 1 on 07/14/2023 by John Prater M.D. at [facility] Hip Implant Right: Hip [place] 01/26/2028 6570-0-0 32 / / [id number] Procedures Procedure Name Priority Date/Time Associated Diagnosis Comments PROTHROMBIN TIME (PT), P Routine 09/13/2023 PROTHROMBIN TIME (PT), P Routine 09/06/2023 PROTHROMBIN TIME (PT), P Routine 08/30/2023 PROTHROMBIN TIME (PT), P Routine 08/23/2023 PROTHROMBIN TIME (PT), P Routine 08/16/2023 PROTHROMBIN TIME (PT), P Routine 08/09/2023 BMD BONE DENSITY SPINE HIPS RAD - Routine (most inpatients and all outpatients) 08/04/2023 9:46 AM CDT Screening Osteoporosis PROTHROMBIN TIME (PT), P Routine 08/02/2023 PROTHROMBIN TIME (PT), P Routine 07/26/2023 PROTHROMBIN TIME (PT), P Routine 07/19/2023 HEMOGLOBIN, B Routine 07/15/2023 6:11 AM CDT PROTHROMBIN TIME (PT), P Routine 07/15/2023 6:11 AM CDT PROTHROMBIN TIME (PT), P STAT 07/14/2023 4:42 PM CDT DX PELVIS 1-2 VIEWS RAD - Routine (most inpatients and all outpatients) 07/14/2023 2:54 PM CDT ADULT OXYGEN THERAPY Routine 07/14/2023 2:17 PM CDT ANESTHESIA REGIONAL BLOCK Routine 07/14/2023 12:23 PM CDT ROBOTIC-ASSISTED HIP TOTAL ARTHROPLASTY 07/14/2023 12:06 PM CDT Primary Osteoarthritis Hip Right PROTHROMBIN TIME (PT), P STAT 07/14/2023 9:47 AM CDT PROTHROMBIN TIME (PT), P Routine 07/05/2023 BI BREAST SCREENING BILATERAL WITHOUT AND WITH IV CONTRAST RAD - Routine (most inpatients and all outpatients) 04/09/2023 9:50 AM CHANGE MANAGEMENT DIRECTOR Screening Mammogram High Risk Patient HPV WITH GENOTYPING, PCR, THINPREP Routine 11/18/2021 9:40 AM CDT COLOGUARD Routine 01/20/2021 5:10 AM CHANGE MANAGEMENT DIRECTOR GLUCOSE, FASTING, S/P Routine 11/20/2020 7:51 AM CDT Screening Examination Diabetes Mellitus LIPID PANEL, S Routine 11/20/2020 7:47 AM CDT Screening Lipid from Last 3 Months or Most Recently Relevant to Health Maintenance Results * Prothrombin Time (PT) (09/13/2023) Only the most recent of13 resultswithin the time period is included. EXT INR 2.50 PATIENT PO INT OF CARE DEVICE Comment:SELF Blood (Blood, Venous) Narrative Resulting Agency Comment HOME INR Historical Provider LAB BLOOD ADD-ON PATIENT POINT OF CARE DEVICE * BMD Bone Density Spine Hips (08/04/2023 9:46 AM CDT) Anatomical Region Laterality Modality Hip, Lumbar Spine, Nuclear M edicine RST LOS, Musculoskeletal ARZ LOS, Muskuloskeletal FLA LOS N/A Radio graphic Imaging Impressions 08/04/2023 9:59 AM CDT Low bone density (Osteopenia) AP Spine (region: L1-L4) Narrative 08/04/2023 9:59 AM CDT EXAM: ??BMD BONE DENSITY SPINE HIPS Bone Mineral Density (BMD) analysis performed on [place] with serial number [id number]. ? FINDINGS: Left Hip: Femur Neck: BMD = 0.859 g/cm2 T-score = -1.3 ?Z-score = -0.5 Total Hip: BMD = 0.897 g/cm2 T-score = -0.9 ?Z-score = -0.4 Lumbar Spine: L1: BMD = 0.925 g/cm2 L2: BMD = 0.942 g/cm2 L3: BMD = 1.005 g/cm2 L4: BMD = 0.980 g/cm2 Total Lumbar Spine (L1-L4): BMD = 0.968 g/cm2 T-score = -1.8 ?Z-score = -1.3 ? Trabecular Bone Score: ??L1-L4: TBS = 1.472 < 1.23: low 1.23 -1.31: borderline ?? > 1.31: normal ? A low TBS has been associated with increased risk of fractures in certain populations. TBS should not be used alone to determine treatment recommendations. It can be used in conjunction with BMD and FRAX to inform management. Please note: A more comprehensive DXA report, including images and graphs, is available in [email or web address]. In the absence of other causes of low BMD or demonstrated skeletal fragility, osteoporosis may be diagnosed in post-menopausal women and men at or above age 50 when the T-score is at or below -2.5 as defined by the WHO. Low bone density is present at T-scores between -1 and -2.5. The diagnosis in pre-menopausal women and men < age 50 can be based on low bone density or evidence of skeletal fragility in the appropriate clinical setting. Based on the bone density results, and on the patient's answers to the Fracture Risk Assessment questionnaire (please refer to appropriate image stored in the BMD study in [employer]), the calculated ten year probability of fracture is: FRAX Risk Factors: None FRAX (10 yr probability) adjusted for TBS Major Osteoporotic Fracture: ??3.6 % Hip Fracture: ?0.1 % ? Degenerative changes are present which may spuriously elevate the spine BMD measurement. Procedure Note Deandre Chou M.B., Christel, MFranklin. - 08/04/2023 EXAM: BMD BONE DENSITY SPINE HIPS Bone Mineral Density (BMD) analysis performed on [place] serial number [id number]. FINDINGS: Left Hip: Femur Neck: BMD = 0.859 g/cm2 T-score = -1.3 Z-score = -0.5 Total Hip: BMD = 0.897 g/cm2 T-score = -0.9 Z-score = -0.4 Lumbar Spine: L1: BMD = 0.925 g/cm2 L2: BMD = 0.942 g/cm2 L3: BMD = 1.005 g/cm2 L4: BMD = 0.980 g/cm2 Total Lumbar Spine (L1-L4): BMD = 0.968 g/cm2 T-score = -1.8 Z-score = -1.3 Trabecular Bone Score: L1-L4: TBS = 1.472 < 1.23: low 1.23 -1.31: borderline > 1.31: normal A low TBS has been associated with increased risk of fractures in certainpopulations. TBS should not be used alone to determine treatmentrecommendations. It can be used in conjunction with BMD and FRAX to informmanagement. Please note: A more comprehensive DXA report, including images and graphs,is available in [employer]READS. In the absence of other causes of low BMD or demonstrated skeletalfragility, osteoporosis may be diagnosed in post-menopausal women and menat or above age 50 when the T-score is at or below -2.5 as defined by theWHO. Low bone density is present at T-scores between -1 and -2.5. The diagnosis in pre-menopausal women andmen < age 50 can be based on low bone density or evidence of skeletalfragility in the appropriate clinical setting. Based on the bone density results, and on the patient's answers to theFracture Risk Assessment questionnaire (please refer to appropriate imagestored in the BMD study in [employer]READS), the calculated ten year probability offracture is: FRAX Risk Factors: None FRAX (10 yr probability) adjusted for TBS Major Osteoporotic Fracture: 3.6 % Hip Fracture: 0.1 % Degenerative changes are present which may spuriously elevate the spineBMD measurement. IMPRESSION: Low bone density (Osteopenia) AP Spine (region: L1-L4) Louann SamuelsNClarencePClarence IMG DXA PROCED URES * (ABNORMAL) Hemoglobin (07/15/2023 6:11 AM CDT) Hemoglobin 10.1(L) 11.6 - 15.0 g/dL 07/15/2023 6:59 AM CDT RDWG Blood (Blood, Venous) 07/15/2023 6:11 AM CDT 07/15/2023 6:24 AM CDT Lauren Ceballos APRN.N.P., D.N.P. LAB BLO OD ADD-ON [facility] [address] [place] [address], [place] RDWG [facility] [place] [address] [place] [address] * DX Pelvis 1-2 Views (07/14/2023 2:54 PM CDT) Anatomical Region Laterality Modality Pelvis, Musculoskeletal RST LOS, Musculoskeletal ARZ LOS, Muskuloskeletal FLA LOS N/A Digital Radiography Impressions 07/14/2023 3:[address] right hip 06/14/2023. Indwelling right hip arthroplasty with components present in expected position. No periprosthetic fracture. Expected postsurgical soft tissue swelling and emphysema. Narrative 07/14/2023 3:41 PM CDT EXAM: DX PELVIS 1-2 VIEWS Procedure Note Nathan Diamond M.D. - 07/14/2023 EXAM: DX PELVIS 1-2 VIEWS IMPRESSION: Comparison CT right hip 06/14/2023. Indwelling right hip arthroplasty withcomponents present in expected position. No periprosthetic fracture.Expected postsurgical soft tissue swelling and emphysema. John Prater M.D. IMG DIAGNOSTIC [facility] GING PROCEDURES * Regional Block (07/14/2023 12:23 PM CDT) Narrative Bo Sharp APRN, CRNA DNAP - 07/14/2023 12:23 PM CDT Bo Sharp APRN, CRNA, DNAP ? 07/14/2023 12:55 PM Regional Block Date/Time: 07/14/2023 12:23 PM Performed by: Bo Sharp APRN, CRNA DNAP Authorized by: Charis Lee M.D. ?? Location: OR PROCEDURE DETAILS: Block Indication: primary anesthetic ?? Block Type - Neuraxial: spinal Positioning: sitting ?? Approach: midline Level inserted: L4-5 Other levels attempted: L3-4 Block technique: landmark technique ?? Injection technique: single injection Needle type: pencan Gauge: 25G Length: 10 CSF: yes ??Pain with needle advancement or injection of local anesthetic: no ?? Injected Medications: Injection(s), anesthetic agent(s) and/or steroid; See MAR UNIVERSAL PROTOCOL All relevant documentation and testing were reviewed and available. All required blood products, implants, devices and or special equipment were made available as applicable. Pre-procedure verification was conducted and the correct site was marked if required. A fire risk assessment was done as applicable. The procedural time-out to verify correct patient, correct side/site, and procedure was conducted prior to performing the procedure and confirmed in a procedural pause. PRE-PROCEDURE DETAILS: ?? Appropriate hand hygiene, gown, cap, mask, protective eyewear, sterile gloves, skin preparation, sterile drape, and strict aseptic technique were utilized as applicable for the procedure.: yes ?? Skin prep: chlorhexidine / alcohol SEDATION / ANESTHESIA Anesthesia method: local infiltration POST-PROCEDURE DETAILS: Procedure completed successfully: successful procedure Notable Events: none Charis Lee M.D. PROCEDURE/MINOR SURG ICAL ORDERABLES * BI Breast Screening Bilateral without and with IV Contrast (04/09/2023 9:50 AM CHANGE MANAGEMENT DIRECTOR) Anatomical Region Laterality Modality Breast, Breast Imaging RST LOS Bilateral M ammography Impressions 04/09/2023 11:25 AM CHANGE MANAGEMENT DIRECTOR Negative. RECOMMENDATION: ??Annual Screening Mammogram Screening as clinically appropriate based on patient's personal risk for breast cancer. ASSESSMENT: ??BI-RADS: 1: Negative. Narrative 04/09/2023 11:25 AM CHANGE MANAGEMENT DIRECTOR EXAM: ??BI BREAST SCREENING BILATERAL WITHOUT AND WITH IV CONTRAST Current study was evaluated with a Computer Aided Detection (CAD) system. INDICATION: ??Screening mammogram. COMPARISON: ??Prior exam(s) were available and reviewed for comparison. TECHNIQUE: ??CESM was performed according to institutional protocol. ??The amount of contrast administered is noted in the patient record. DENSITY: ??d. The breast(s) are extremely dense, which lowers the sensitivity of mammography. BACKGROUND PARENCHYMAL ENHANCEMENT: ??There is mild background enhancement. FINDINGS: ?? LOW ENERGY IMAGES: ??No suspicious masses, calcifications or areas of architectural distortion are seen. POST CONTRAST SUBTRACTION RIGHT BREAST: ??No suspicious mass or nonmass enhancement in the right breast. POST CONTRAST SUBTRACTION LEFT BREAST: ??No suspicious mass or nonmass enhancement in the left breast. Procedure Note Nieves Maria M.D., J.D. - 04/09/2023 EXAM: BI BREAST SCREENING BILATERAL WITHOUT AND WITH IV CONTRAST Current study was evaluated with a Computer Aided Detection (CAD) system. INDICATION: Screening mammogram. COMPARISON: Prior exam(s) were available and reviewed for comparison. TECHNIQUE: CESM was performed according to institutional protocol. Theamount of contrast administered is noted in the patient record. DENSITY: d. The breast(s) are extremely dense, which lowers thesensitivity of mammography. BACKGROUND PARENCHYMAL ENHANCEMENT: There is mild background enhancement. FINDINGS: LOW ENERGY IMAGES: No suspicious masses, calcifications or areas ofarchitectural distortion are seen. POST CONTRAST SUBTRACTION RIGHT BREAST: No suspicious mass or nonmassenhancement in the right breast. POST CONTRAST SUBTRACTION LEFT BREAST: No suspicious mass or nonmassenhancement in the left breast. IMPRESSION: Negative. RECOMMENDATION: Annual Screening Mammogram Screening as clinically appropriate based on patient's personal risk forbreast cancer. ASSESSMENT: BI-RADS: 1: Negative. Rocío Appiah M.D. IMG BI PROCEDURES * HPV with Genotyping, PCR, ThinPrep (11/18/2021 9:40 AM CDT) HPV with Genotyping, ThinPrep, PCR Negative Negative 11/21/2021 11:29 AM CDT ECLR Comment: Negative for high risk HPV by nucleic acid amplification. ??The following high risk HPV types were not detected: 16, 18, 31, 33, 35, 39, 45, 51, 52, 56, 58, 59, 66, and 68 This result does not rule out HPV in the patient, as the sensitivity of the test depends on the timing of the specimen collection and the quality of the specimen. Result should be correlated with patient's history, clinical presentation, and MINE PRODUCTION ENGINEER cytology report. Varies 11/18/2021 9:40 AM CDT 11/20/2021 10:30 AM CDT Willow Guajardo M.D. LAB MICROBIOLOGY - GENERAL ORDERABLES [facility] [address] [place] [id number], [facility] ECLR [facility] in [address] [address] * Cologuard-Sent Out Lab (01/20/2021 5:10 AM CHANGE MANAGEMENT DIRECTOR) EXT Cologuard Negative - See Scanned Report Negative - See Scanned Report EXTERNAL NON-INTERFAC ED LAB Comment:See care everywhere for results Stool (Stool) 01/20/2021 5:1 0 AM CHANGE MANAGEMENT DIRECTOR Impressions EXTERNAL NON-INTERFACED LAB - 02/03/2021 9:12 AM CHANGE MANAGEMENT DIRECTOR Resulting Agency [facility] (CLIA #:[id number]) Specimen Collected: 01/20/21 05:10 Last Resulted: 02/03/21 09:12 Received From: Jack Erwin Result Received: 02/03/22 07:20 Historical Provider LAB BODY FLUIDS AND STOOLS ORDERABLES Performing Organization Address City/[facility]/ZIP Co de Phone Number EXTERNAL NON-INTERFACED LAB [address] [place] [address] * Glucose, Fasting (11/20/2020 7:51 AM CDT) Pathologist [facility] Glucose, P 93 70 - 100 mg/dL 11/20/2020 11:04 AM CDT CNFL Last Intake 12 hr 11/20/2020 7:56 AM CDT CNFL Blood (Blood, Venous) 11/20/2020 7:51 AM CDT 11/20/2020 7:56 AM CDT Willow Guajardo M.D. LAB BLOOD NON ADD-O N [facility] [address] [place] [phone], [facility] CNFL [facility] in [address] [address] * Lipid Panel (11/20/2020 7:47 AM CDT) Pathologist [facility] Cholesterol, Total 195 mg/dL 2020 11:15 AM CDT CNFL Comment: ----REFERENCE VALUE---- Desirable: < 200 Borderline high: 200 - 239 High: > or = 240 Triglycerides 89 mg/dL 11/20/2020 11:15 AM CDT CNFL Comment: ----REFERENCE VALUE---- Normal: <150 Borderline high: 150-199 High: 200-499 Very high: > or =500 Cholesterol, HDL 58 >=50 mg/dL 11/21/19 11:15 AM CDT CNFL Calculated LDL 119 mg/dL 11/20/2020 11:15 AM CDT CNFL Comment: ----REFERENCE VALUE---- Desirable: <100 mg/dL Above Desirable: 100-129 mg/dL Borderline High: 130-159 mg/dL High: 160-189 mg/dL Very High: >=190 mg/dL Cholesterol, Non-HDL, Calculated 137 mg/dL 11/20/2020 11:15 AM CDT CNFL Comment: ----REFERENCE VALUE---- Desirable: <130 Above Desirable: 130-159 Borderline high: 160-189 High: 190-219 Very high: > or =220 Blood (Blood, Venous) 11/20/2020 7:47 AM CDT 11/20/2020 10:02 AM CDT Willow Guajardo M.D. LAB BLOOD ADD-ON [facility] [address] [place] [id number], [facility] [address] [address] from Last 3 Months or Most Recently Relevant to Health Maintenance Advance Directives For more information, please contact: [phone] Documents on File Type Date Recorded Patient Insole Reinforcer Expl anation Advance Directives 07/14/2023 7:07 PM Bright Gomez HCPOA/ADVOCATE/AGENT/RE PRESENTATIVE/SURROGATE Advance Directives 10/07/2017 7:53 AM * Full Code (Latest Code Status on File) Date Activated Date Inactivated Comments 07/14/2023 3:44 PM 07/15/2023 5:31 PM Question Answer Comments Full Code: Not Discussed Due to: Patient not available * Full Code Date Activated Date Inactivated Comments 10/07/2017 12:59 PM 10/12/2017 2:08 PM Question Answer Comments Full Code: Discussed Healthcare Agents on File Name Relationship Healthcare Agent Relationship Communication Bright Gomez Brother Health Care Agent Yaz Gomez Sister First Alternate Health Care Agent Care Teams Archeologist Relationship Specialty Start Date End Date Willow Guajardo M.D. [address] [place] [phone] PCP - General Family Medicine 03/28/[address] [address] 10/11/17
--- OUTSIDE RECORDS SUMMARY | 2023-09-30 08:38 | XMS_ITS | Referral Summary ---
Author Organization [facility] Address [address] [place] [address] Care Team Providers Care Early Childhood Educator Aide Name Role Phone Willow Guajardo M.D. Primary Care Provider [phone] Source Comments Patient records contain information from all sites at [facility]. For routine questions regarding patient records, call [phone] during business hours, M-F 8:00 AM - 5:00 PM Central Time. Record requests for emergency care only can be directed to [phone] at any time.[facility] Encounters Date Type Department Care Team Description 09/29/2023 11:45 AM CDT Clinical Support Department of Rehabilitation Services in [address] [phone] Symone Trujillo APRN, C.N.P., D.N.P. Sonali Morrison, P.T. Aftercare Total Hip Arthroplasty 09/22/2023 11:45 AM CDT Clinical Support Department of Rehabilitation Services in [address] [phone] Symone Trujillo APRN, ArvindN.P., Maddi.N.PSnoali Leavitt, P.TClarence Aftercare Total Hip Arthroplasty 09/13/2023 8:45 AM CDT Anticoagulation Visit Department of Anticoagulation in [address] [phone] Willow Guajardo M.D. Fpc (Current) Anticoagulant Treatment; Monitoring For Therapeutic Drug Therapy; Prosthesis Aortic Valve 09/07/2023 2:00 PM CDT Office Visit Department of Orthopedic Surgery in [address] [phone] Мария Holliday APRN C.N.PClarence, Maddi.N.PClarence Arthroplasty Total Hip Replacement Status Post Right (Primary Dx); Follow Up Examination Postoperative Visit Discharge Disposition: Home or Self Care 09/07/2023 12:30 PM CDT Clinical Support Department of Rehabilitation Services in [address] [phone] Symone Trujillo APRN, ArvindN.P., Maddi.N.PSonali Leavitt, P.TCalrence Aftercare Total Hip Arthroplasty 09/06/2023 11:30 AM CDT Anticoagulation Visit Department of Anticoagulation in [address] [phone] Willow Guajardo M.D. Prosthesis Aortic Valve (Primary Dx); Swing Grinder Anticoagulant Treatment [Z79.01]; Monitoring For Therapeutic Drug Therapy [Z51.81] 09/01/2023 12:30 PM CDT Clinical Support Department of Rehabilitation Services in [address] [phone] Symone Trujillo APRN, Lauren.N.P., D.N.P. Sonali Morrison, P.TClarence Aftercare Total Hip Arthroplasty 08/25/2023 12:30 PM CDT Clinical Support Department of Rehabilitation Services in [address] [place] [phone] Symone Trujillo APRN, Ne., Maddi.N.P. Sonali Morrison, P.T. Aftercare Total Hip Arthroplasty 08/18/2023 12:30 PM CDT Clinical Support Department of Rehabilitation Services in [address] [phone] Symone Trujillo APRN, C.N.P., Maddi.N.PSonali Leavitt P.T. Aftercare Total Hip Arthroplasty 08/16/2023 10:45 AM CDT Anticoagulation Visit Department of Anticoagulation in [address] [phone] Willow Guajardo M.D. Fpc (Current) Anticoagulant Treatment; Monitoring For Therapeutic Drug Therapy; Prosthesis Aortic Valve 08/11/2023 12:30 PM CDT Clinical Support Department of Rehabilitation Services in [address] [phone] Symone Trujillo APRN, C.N.P., Maddi.N.P. Sonali Morrison, P.T. Aftercare Total Hip Arthroplasty 08/09/2023 1:15 PM CDT Anticoagulation Visit Department of Anticoagulation in [address] [phone] Willow Guajardo M.D. Prosthesis Aortic Valve (Primary Dx); Fpc Anticoagulant Treatment [Z79.01]; Monitoring For Therapeutic Drug Therapy [Z51.81] 08/04/2023 8:34 AM CDT - 08/04/2023 11:59 PM CDT Hospital Encounter Department of Radiology in [address] [phone] Louann Govea C.N.P. Screening Osteoporosis Discharge Disposition: Home or Self Care 08/04/2023 8:45 AM CDT Clinical Support Department of Rehabilitation Services in [address] [phone] Symone Trujillo APRN, ArvindN.P., Maddi.N.P. Sonali Morrison, P.TClarence Aftercare Total Hip Arthroplasty 08/03/2023 10:45 AM CDT Anticoagulation Visit Department of Anticoagulation in [address] [phone] Willow Guajardo M.D. Swing Grinder (Current) Anticoagulant Treatment; Monitoring For Therapeutic Drug Therapy; Prosthesis Aortic Valve 07/27/2023 9:30 AM CDT Clinical Support Department of Rehabilitation Services in [address] [phone] Symone Trujillo APRN, Lauren.N.P., D.N.P. Sonali Morrison, P.T. Aftercare Total Hip Arthroplasty 07/27/2023 8:00 AM CDT Office Visit Department of Orthopedic Surgery in [address] [phone] Symone Trujillo APRN, Lauren.N.PClarence, Maddi.N.PClarence Aftercare Total Hip Arthroplasty (Primary Dx) Discharge Disposition: Home or Self Care 07/26/2023 10:00 AM CDT Anticoagulation Visit Department of Anticoagulation in [address] [phone] Willow Guajardo M.D. Prosthesis Aortic Valve (Primary Dx); Fpc Anticoagulant Treatment [Z79.01]; Monitoring For Therapeutic Drug Therapy [Z51.81] 07/21/2023 8:45 AM CDT Comprehensive Visit Department of Rehabilitation Services in [address] [phone] Symone Trujillo APRN, Lauren.N.P., D.N.P. Sonali Morrison, P.T. Aftercare Total Hip Arthroplasty (Primary Dx); Pain Hip Right 07/19/2023 11:15 AM CDT Anticoagulation Visit Department of Anticoagulation in [address] [phone] Willow Guajardo M.D. Prosthesis Aortic Valve (Primary Dx); Swing Grinder Anticoagulant Treatment [Z79.01]; Monitoring For Therapeutic Drug Therapy [Z51.81]; Aftercare Total Hip Arthroplasty 07/16/2023 Clinical Communication Department of Anticoagulation in [place], [place] [address] [place] [address] Khloe Russo, Adiel Anticoagulation (Anticoagulation track updated s/p hospitalization) 07/15/2023 Abstract [place], [place] [address] [place] [address] Provider, Historical 07/14/2023 9:02 AM CDT - 07/15/2023 3:00 PM CDT Hospital Encounter [facility], Third Floor [address] [place] [phone] John Prater M.D. Aftercare Total Hip Arthroplasty (Primary Dx) Discharge Disposition: Home or Self Care 07/14/2023 10:45 AM CDT - 07/14/2023 1:15 PM CDT Surgery Outpatient Procedure Center in [address] [phone] John Prater M.D. ROBOTIC-ASSISTED HIP TOTAL ARTHROPLASTY 07/14/2023 12:19 PM CDT Anesthesia Event Outpatient Procedure Center in [address] [phone] Charis Lee M.D. 07/13/2023 11:30 AM CDT Office Visit Department of Integrative Medicine in [place], [place] [address] [place] [phone] Мария Gilmore M.D. Hoffman, Michele R Discharge Disposition: Home or Self Care 07/12/2023 9:30 AM CDT Clinical Support Department of Rehabilitation Services in [address] [phone] Louann Govea C.N.P. Buchholtz, Marie F, P.T. Pain Pelvic Female 07/06/2023 9:15 AM CDT Virtual Visit Preoperative Evaluation Center in [address] [phone] Symone Trujillo APRN, Lauren.N.P., Maddi.N.P. Мария Frey, Adiel Preanesthetic Medical Exam (Primary Dx); Preoperative Exam Discharge Disposition: Home or Self Care 07/06/2023 10:00 AM CDT Telemedicine Department of Orthopedic Surgery in [address] [phone] Symone Trujillo APRN, Lauren.N.P., D.N.P. Silvestre Cook, Fred. Preoperative Exam Discharge Disposition: Home or Self Care 07/05/2023 8:30 AM CDT Anticoagulation Visit Department of Anticoagulation in [address] [phone] Willow Guajardo M.D. Prosthesis Aortic Valve; Fpc Anticoagulant Treatment [Z79.01]; Monitoring For Therapeutic Drug Therapy [Z51.81] 07/05/2023 12:30 PM CDT Clinical Support Department of Rehabilitation Services in [address] [phone] Louann Govea C.N.P. Buchholtz, Marie F, P.T. Pain Pelvic Female 07/02/2023 9:30 AM CDT Office Visit Department of Orthopedic Surgery in [address] [phone] Symone Trujillo APRN, C.N.P., D.N.P. Primary Osteoarthritis Hip Right (Primary Dx) Discharge Disposition: Home or Self Care from Last 3 Months Allergies Active Allergy Reactions Criticality Noted Date Comments Cyclobenzaprine Other (see comments) Medium 12/22/2021 Jitteriness and feeling, wired. Gabapentin Hallucinations Medium 09/06/2018 Hallucinations Medications Medication Sig Dispensed Refills Start Date End Date Status aspirin 81 mg chewable tablet Chew 1 tablet (81 mg total) daily. 10/13/19 18 Active prothrombin time/INR miscIndications:L ted Term (Current) Anticoagulant Treatment,Monitor ing For Therapeutic Drug Therapy,Prosthesi s Aortic Valve Pt scheduled for Home monitoring education 02/21/18. 1 each 02/15/20 18 Active lancetsIndication s:Monitoring For Therapeutic Drug [...] Prolonged Acute Pain/Traumatic Injury. 40 tablet 07/20/19 024 Discontinued Active Problems Patient Care Coordination [...] associated with long-term warfarin use, including both zcwmond-du-fjju factors as well as difficulties maintaining a consistently therapeutic INR, the possibility of being able to safely manage mechanical valve patients with a DOAC, like apixaban, has the potential to greatly improve the future care of these patients. The PROACT Xa trial is sponsored by [employer], and the finalized study protocol was developed by the [employer] [place] ([employer]) with the approval of the FDA. You can read more about the study at ClinicalTrials.gov [employer] PROACT Xa NCT [id number]. If you have any questions or concerns, please do not hesitate to contact us. Eloisa Choi Picker Box Operator [phone] [email or web address] Maite Lan Picker Box Operator [phone] [email or web address] Dr. Cole Theodore [phone] [email or web address] Dr. Juvenal Edge [phone] [email or web address] Problem Noted Date Diagnosed Date Primary Osteoarthritis Hip Right 05/03/2023 Allergy Seasonal 04/03/2020 Replacement Aortic Valve Tissue 04/03/2020 Anisocoria 04/03/2020 Dizziness 04/03/2020 Headache Unspecified 04/03/2020 Swing Grinder Anticoagulant Treatment [Z79.01] 10/26 Monitoring For Therapeutic [...] Acquired 10/07/2017 10/11/2017 Bicuspid Aortic Valve 10/28/20152017 Immunizations Name Administration Dates Next Due H1N1 [...] older) 01/13/2021 SARS-COV-2 (COVID-19) - PFIZ ER [id number] (12 YEARS OR OLDER) 04/05/2023(Deferred: Patient Refused - Refused.) Td Preservative Free (TENIVA C, DECAVAC) 08/06/2008,04/13/2003 Tdap 09/06/2018,08/06/2008,04/13/2003 Tetanus Toxoid, Adsorbed (discontinued) 08/06/2008,08/06/2008 TyVi (inj) 03/28/2019,12/21/2012 Typhoid, Unspecified 12/21/2012 PRISCA 03/13/2019,02/09/2019 influenza vaccine (FLUBLOK) (18 years or older) (PF) 11/06/2021 influenza vaccine quad (FLUZONE/FLUARIX) (6 months and older)(PF) 11/06/2021,01/02/2021,02/07/2009 typhoid vaccine, parenteral (discontinued) 12/21/2012 Social History Tobacco Use Types Packs/Day Years Used Date Smoking Tobacco: Never Passive Smoke Exposure: Never Smokeless Tobacco: Never Tobacco Cessation:Counseling Given: Not Answered Alcohol Use Standard Drinks/Week Comments Not Currently 0 (1 standard drink = 0.6 oz pure alcohol) 1 drink approx every [address] [facility] Utilities Answer Date Recorded In the past 12 months has [employer], [employer], oil, or water [employer] threatened to shut off services in your [...] week 03/05/2022 How often do you attend [facility] or anglican services? Patient declined 03/05/2022 Do you belong to any clubs o r organizations such as islam groups, unions, fraternal or athletic groups, or [...] Answer Date Recorded PHQ-2 Score 0 11/18/2021 [facility] [place] of Occupat ional Health - Occupational Stress [...] your living situation today? I have a [facility] place to live 07/14/2023 Education Answer [...] CDT Anticoagulation Visit Department of Anticoagulation in [address] [phone] Willow Guajardo M.D. [address] [place] [phone] 10/05/2023 8:45 AM CDT Clinical Support Department of Rehabilitation Services in [address] [phone] Symone Trujillo APRN, C.N.P., D.N.P. [address] [place] [phone] Sonali Morrison, P.T. 10/25/2023 8:30 AM CDT Clinical Support Department of Rehabilitation Services in [address] [phone] Symone Trujillo APRN, C.N.P., D.N.P. [address] [place] [phone] Sonali Morrison, P.T. 12/16/2023 10:00 AM CDT Appointment Department of Radiology in [address] [phone] Phani Cook M.D. [address] [place] [phone] Discharge Disposition: Home or Self Care 12/20/2023 1:45 PM CDT Office Visit Department of Cardiovascular Diseases in [address] [phone] Phani Cook M.D. [address] [place] [phone] Medical Devices Implanted Type Area Manager Of Drilling Device Identifier Shelf Expiration Date Model / Serial / Lot Vlv [facility] Sclpd 21 - [id number] - [id number] Implanted:Qty: 1 on 10/07/2017 by Cole Theodore M.D. at [facility] Cardiac Valve Prosthesis N/A: Chest [employer] 11/16/2022 ONXANE-2 1 / [id number] / Description:MR conditional u p to 3T Normal scanning modes. Aortic valve replacement. Scrw Hex 6.5x25 - Sna - [id number] Implanted:Qty: 1 on 07/14/2023 by John Prater M.D. at [facility] Hip Implant Right: Hip [employer] 05/04/2028 7030-652 5 / NA / [id number] Lnr X3 10d Szd 32 - Sna - [id number] Implanted:Qty: 1 on 07/14/2023 by John Prater M.D. at [facility] Hip Implant Right: Hip [employer] 04/06/2028 723-10-3 2D / NA / [id number] Shll Acet Trd Chl 48d - Sna - [id number] Implanted:Qty: 1 on 07/14/2023 by John Prater M.D. at [facility] Hip Implant Right: Hip Billy [id number] 05/10/2028 702-04-4 8D / NA / [id number] Hip Stm Acc Sz5 05j786 - Sna - [id number] Implanted:Qty: 1 on 07/14/2023 by John Prater M.D. at [facility] Hip Implant Right: Hip [employer] 05/21/2028 6721-053 5 / NA / [id number] A Fem Hd Blx -4x32 - [id number] Implanted:Qty: 1 on 07/14/2023 by John Prater M.D. at [facility] Hip Implant Right: Hip [employer] 01/26/2028 6570-0-0 32 / / [id number] Procedures Procedure Name Priority Date/Time Associated Diagnosis [...] inpatients and all outpatients) 04/09/2023 9:50 AM HOSE TURNER Screening Mammogram High Risk Patient HPV WITH GENOTYPING, PCR, THINPREP Routine 11/18/2021 9:40 AM CDT COLOGUARD Routine 01/20/2021 5:10 AM HOSE TURNER GLUCOSE, FASTING, S/P Routine 11/20/2020 7:51 AM [...] Provider LAB BLOOD ADD-ON Performing Organization Address [facility]/State/ZIP Co de Phone Number PATIENT POINT OF CARE DEVICE * BMD [...] Bone Mineral Density (BMD) analysis performed on [employer] with serial number [id number]. ? FINDINGS: Left Hip: Femur Neck: BMD [...] including images and graphs, is available in [employer]READS. In the absence of [...] BMD measurement. Procedure Note Deandre Chou M.B., Christel MFranklin. - 08/04/2023 EXAM: BMD BONE DENSITY SPINE HIPS Bone Mineral Density (BMD) analysis performed on [employer] serial number [id number]. FINDINGS: Left Hip: Femur Neck: BMD = [...] report, including images and graphs,is available in [employer]. In the absence of other causes of [...] density (Osteopenia) AP Spine (region: L1-L4) Louann Govea CClarenceN.PClarence IMG DXA PROCED URES * (ABNORMAL) Hemoglobin (07/15/2023 6:11 AM CDT) Hemoglobin 10.1(L) 11.6 - 15.0 g/dL 07/15/2023 6:59 AM CDT RDWG Blood (Blood, Venous) 07/15/2023 6:11 AM CDT 07/15/2023 6:24 AM CDT Symone Trujillo APRN C.N.P., D.N.P. LAB BLO OD ADD-ON [facility] [address] [facility] [place] [address], [facility] RDWG [facility] in [place] [address] [place] [address] * DX Pelvis 1-2 Views (07/14/2023 2:54 [...] 12:23 PM CDT) Narrative Bo Sharp APRN, CRNA, DNAP - 07/14/2023 12:23 PM CDT Bo Sharp APRN, CRNA DNAJigar ? 07/14/2023 12:55 PM Regional Block Date/Time: 07/14/2023 12:23 PM Performed by: Bo Sharp APRN, CRNA, DNAP Authorized by: Charis Lee M.D. ?? [...] and with IV Contrast (04/09/2023 9:50 AM HOSE TURNER) Anatomical Region Laterality Modality Breast, Breast Imaging RST LOS Bilateral M ammography Impressions 04/09/2023 11:25 AM HOSE TURNER Negative. RECOMMENDATION: ??Annual Screening Mammogram Screening as clinically appropriate based on patient's personal risk for breast cancer. ASSESSMENT: ??BI-RADS: 1: Negative. Narrative 04/09/2023 11:25 AM HOSE TURNER EXAM: ??BI BREAST SCREENING BILATERAL WITHOUT AND [...] Genotyping, PCR, ThinPrep (11/18/2021 9:40 AM CDT) Pathologist [facility] HPV with Genotyping, ThinPrep, PCR Negative Negative [...] correlated with patient's history, clinical presentation, and SECURITY SUPERVISOR cytology report. Varies 11/18/2021 9:40 AM CDT 11/20/2021 10:30 AM CDT Willow Guajardo M.D. LAB MICROBIOLOGY - GENERAL ORDERABLES [facility] [address] [place] [address], [facility] ECLR [facility] in [address] [address] * Cologuard-Sent Out Lab (01/20/2021 5:10 AM HOSE TURNER) EXT Cologuard Negative - See Scanned Report Negative - See Scanned Report EXTERNAL NON-INTERFAC ED LAB Comment:See care everywhere for results Stool (Stool) 01/20/2021 5:1 0 AM HOSE TURNER Impressions EXTERNAL NON-INTERFACED LAB - 02/03/2021 9:12 AM HOSE TURNER Resulting Agency [facility] (CLIA #:[id number]) Specimen Collected: 01/20/21 05:10 Last Resulted: 02/03/21 09:12 Received From: [facility] Result Received: 02/03/22 07:20 Historical Provider LAB BODY FLUIDS AND STOOLS ORDERABLES EXTERNAL NON-INTERFACED LAB [address] [place] [address] * Glucose, Fasting (11/20/2020 7:51 AM CDT) Glucose, P 93 70 - 100 mg/dL 11/20/2020 11:04 AM CDT CNFL Last Intake 12 hr 11/20/2020 7:56 AM CDT CNFL Blood (Blood, Venous) 11/20/2020 7:51 AM CDT 11/20/2020 7:56 AM CDT Willow Guajardo M.D. LAB BLOOD NON ADD-O N [facility] [address] [place] [address], [facility] in [address] [address] * Lipid Panel (11/20/2020 7:47 AM CDT) Cholesterol, Total 195 mg/dL 2020 11:15 AM [...] CDT Willow Guajardo M.D. LAB BLOOD ADD-ON [facility] [address] [place] [address], [place] CNFL [facility] in [address] [address] from Last 3 Months or Most Recently Relevant to Health Maintenance Advance Directives For more information, please contact: [phone] Documents on File Type Date Recorded Patient Metallurgical Analyst Expl anation Advance Directives 07/14/2023 7:07 PM [...] First Alternate Health Care Agent Care Teams Early Childhood Educator Aide Relationship Specialty Start Date End Date Willow Guajardo M.D. [address] [place] [phone] PCP - General Family Medicine 03/28/[address] [address] 10/11/17
--- OUTSIDE RECORDS SUMMARY | 2023-09-30 08:38 | XMS_ITS | Encounter Summary ---
Author Organization [facility] Address [address] [place] [address] Care Team Providers Care Drywall Contractor Name Role Phone Willow Guajardo M.D. Primary Care Provider Reason for Visit * Reason Comments Follow-up Arthroplasty * Outpatient (Routine) - Closed Specialty Diagnoses / Procedures Referred By Alexx espinoza Referred To Contact Orthopedic Surgery Symone Trujillo APRN, C.N.P., D.N.P. [address] [place] [phone] [facility] Region Referral ID Status Reason Start Date Expiration Date Visits Re quested Visits Authorized [id number] Closed 07/27/2023 01/25/2025 1 1 Encounter Details Date Type Department Care Team (Latest Contact Info) Description 09/07/2023 2:00 PM CDT Office Visit Department of Orthopedic Surgery in [address] [phone] Мария Holliday APRN, C.N.P., D.N.P. [address] [place] [phone] Arthroplasty Total Hip Replacement Status Post Right (Primary Dx); Follow Up Examination Postoperative Visit Discharge Disposition: Home or Self Care Social History Tobacco Use Types Packs/Day Years Used Date Smoking Tobacco: Never Passive Smoke Exposure: Never Smokeless Tobacco: Never Tobacco Cessation:Counseling Given: Not Answered Alcohol Use Standard Drinks/Week Comments Not Currently 0 (1 standard drink = 0.6 oz pure alcohol) 1 drink approx every 2 weeks. [facility] etriggities Answer Date Recorded In the past 12 months has e [employer], gas, oil, or water [employer] threatened to shut off services in your [...] How often do you attend chur or sikhism services? Patient declined 03/05/2022 Do you belong to any clubs o r organizations such as restoration groups, unions, fraternal or athletic groups, or [...] Answer Date Recorded PHQ-2 Score 0 11/18/2021 [facility] Occupat ional Health - Occupational Stress [...] living situation today? I have a [facility] [place] place to live 07/14/2023 Education Answer Date [...] as of this encounter Progress Notes * Мария Holliday, KERMIT, C.N.P., D.N.P. - 09/07/2023 2:00 PM CDT SUBJECTIVE CHIEF COMPLAINT / REASON FOR VISIT Meeta Gomez is a 53 y.o. female who presents for evaluation of Follow-up and Arthroplasty of the Right Hip. HISTORY OF PRESENT ILLNESS Meeta is a pleasant 53 y.o. female who is 8 weeks s/p robotically assisted, CT guided, RIGHT total hip arthroplasty. She continues Physical Therapy on motion/strengthening. She is wondering about restarting acupuncture. She continues ttih-pdv-qmimgea analgesics, just as needed for discomfort. She is overall feeling well, no concerns today. OBJECTIVE PHYSICAL EXAMINATION General: Patient is in no distress. Capable of full communication without difficulty. Patient is polite and cooperative. Extremities: Right hip surgical incision is well healed without any obvious signs of infection. Hipflexion to 100??, internal/external rotation not tested today. No neurovascular compromise distally. No lower extremity edema noted. Neuro: Alert and oriented x3. DIAGNOSTICS PELVIS X-RAY IMPRESSION: Comparison CT right hip 06/14/2023. Indwelling right hip arthroplasty with components present in expected position. No periprosthetic fracture. Expected postsurgical soft tissue swelling and emphysema. ASSESSMENT / PLAN #1 Arthroplasty Total Hip Replacement Status Post Right #2 Follow Up Examination Postoperative Visit Meeta is a very pleasant 53-year-old female who is 8 weeks status post robotically assisted, CT-guided, right total hip arthroplasty. At this point in time, my suggestion is that she continue working with physical therapy on motion and strengthening of her hip, keeping posterior hip dislocation precautions in mind. In regard to acupuncture, she may proceed with caution. She will slowly increase her activity as tolerated. Continue qlai-drz-wgxezdd analgesics as needed for discomfort. Since she isdoing so well postoperatively, we will plan to see her back on an as-needed basis for her hip. She is in agreement with this plan, all questions answered. documented in this encounter Plan of Treatment Upcoming Encounters Date Type Department Care Team (Latest Contact Info) Description 10/04/2023 9:15 AM CDT Anticoagulation Visit Department of Anticoagulation in [address] [phone] Willow Guajardo M.D. [address] [place] [phone] 10/05/2023 8:45 AM CDT Clinical Support Department of Rehabilitation Services in [address] [phone] Symone Trujillo APRN, Lauren.N.P., D.N.P. [address] [place] [phone] Sonali Morrison, P.T. 10/25/2023 8:30 AM CDT Clinical Support Department of Rehabilitation Services in [address] [phone] Symone Trujillo APRN, C.N.P., D.N.P. [address] [place] [phone] Sonali Morrison, P.T. 12/16/2023 10:00 AM CDT Appointment Department of Radiology in [address] [phone] Phani Cook M.D. [address] [place] [phone] Discharge Disposition: Home or Self Care 12/20/2023 1:45 PM CDT Office Visit Department of Cardiovascular Diseases in [address] [phone] Phani Cook M.D. [address] [place] [phone] documented as of this encounter Visit Diagnoses Diagnosis Arthroplasty Total Hip Replacement Status Post Right- Primary Follow Up Examination Postoperative Visit documented in this encounter Additional Health Concerns Assessment Noted Time PHQ-9 Depression Total Score: 2 02/24/20 18 2:31 PM PROPERTY INSURANCE CLAIMS EXAMINER documented as of this encounter Care Teams Drywall Contractor Relationship Specialty Start Date End Date Willow Guajardo M.D. [address] [place] [phone] PCP - General Family Medicine 03/28/[address] [address] 10/11/17 documented as of this encounter
--- OUTSIDE RECORDS SUMMARY | 2023-09-30 08:38 | XMS_ITS ---
Author Organization [facility] Address [address] [place] [address] Care Team Providers Care Senior Manager [employer] Name Role Phone Unavailable Unavailable Unavailable Surgery Details Not on file Complications Check Surgery Details section. Procedure Estimated Blood Loss Check Surgery Details section. Procedure Findings Check Surgery Details section. Procedure Specimens Taken Check Surgery Details section.
--- OUTSIDE RECORDS SUMMARY | 2023-09-30 08:38 | XMS_ITS | Encounter Summary ---
Author Organization [facility] Address [address] [place] [address] Care Team Providers Care Dive Supervisor Name Role Phone Willow Guajardo M.D. Primary Care Provider [phone] Reason for Referral * Outpatient (Routine) - Authorized Specialty Diagnoses / Procedures Referred By Contac t Referred To Contact Willow Guzman M.D. [address] [place] [phone] [facility] Referral ID Status Reason Start Date Expiration Date V isits Requested Visits Authorized [id number] Authorized 09/06/2023 03/07/2025 1 1 Reason for Visit * Outpatient (Routine) - Closed Specialty Diagnoses / Procedures Referred By Contac t Referred To Contact Willow Guzman M.D. [phone] [place] [phone] [facility] Referral ID Status Reason Start Date Expiration Date Visits Re quested Visits Authorized [id number] Closed 08/09/2023 02/07/2025 1 1 Encounter Details Date Type Department Care Team (Latest Contact Info) Description 09/06/2023 11:30 AM CDT Anticoagulation Visit Department of Anticoagulation in [place], [place] [address] [place] [address] Willow Guajardo M.D. [address] [place] [phone] Prosthesis Aortic Valve (Primary Dx); [facility] Anticoagulant Treatment [Z79.01]; Monitoring For Therapeutic Drug Therapy [Z51.81] Social History Tobacco Use Types Packs/Day Years Used Date Smoking Tobacco: Never Passive Smoke Exposure: Never Smokeless Tobacco: Never Alcohol Use Standard Drinks/Week Comments Not Currently 0 (1 standard drink = 0.6 oz pure alcohol) 1 drink approx every 2 weeks. [facility] Bills Khakisities Answer Date Recorded In the past 12 months has [employer] gas, oil, or water [employer] threatened to shut off services in your [...] How often do you attend chur or jewish services? Patient declined 03/05/2022 Do you belong to any clubs o r organizations such as jain groups, unions, fraternal or athletic groups, or [...] Answer Date Recorded PHQ-2 Score 0 11/18/2021 [facility] Occupat ional Health - Occupational Stress [...] this encounter Patient Instructions * Patient Instructions* Barbara Bar, RClarenceN. - 09/06/2023 11:30 AM CDT The day before your next [...] please call Primary Care Anticoagulation Program at [phone] from 7:30 am to 4:30 pm. Wednesday-Wednesday [...] if you start any herbal or other tnjk-htc-momuzyf product (check with your doctor, a nurse, or pharmacist). If you change your diet significantly. If you decide to stop or start using tobacco or alcohol. If you notice unusual bruising or bleeding. If you notice dark, tarry, or bright red stools or blood in your urine. If you have a painful and swollen calf. documented in this encounter Progress Notes * Barbara Bar R.N. - 09/06/2023 11:30 AM CDT Warfarin Maintenance Nursing Protocol Goal Range NON-STANDARD (version approved 04/2021) Visit Type: Telephone and Home/Self Test INR Primary reason for visit: Home INR Monthly INR review Information provided by:patient INR result: 2.2 Goal range: 1.5-2.0 Inclusion Criteria: All inclusion [...] routine monthly appointment for INR review (date/time): 10/04/23. Patient will initiate contactto Anticoagulation Service if INR out of goal range on day of Home INR check OR if INR is higher orlower than last INR by 1 or more. Warfarin Management Screening Questionnaire completed. Previous INR was therapeutic. Today???s INR is Supratherapeutic, Causes: Unknown. Dosing and follow up recommendation: Protocol dosing range for INR is 0.2 above goal range: Decrease weekly dose by 5%. Next INR in 7 days. per positive screening criteria. Additional dosing or follow-up information: Protocol completed. Per nursing judgment, provider consulted. Dosing per tracker. Next INR in 7 days per consult with Anticoagulation [facility]. Pt is on injectable anticoagulant: No. Plan [...] CDT Anticoagulation Visit Department of Anticoagulation in [address] [phone] Willow Guajardo M.D. [address] [place] [phone] 10/05/2023 8:45 AM CDT Clinical Support Department of Rehabilitation Services in [address] [phone] Symone Trujillo APRN, C.N.P., D.N.P. [address] [place] [phone] Sonali Morrison PVicky 10/25/2023 8:30 AM CDT Clinical Support Department of Rehabilitation Services in [address] [phone] Symone Trujillo APRN, ArvindNRobyn, D.N.P. [address] [place] [phone] Sonali Morrison P.T. 12/16/2023 10:00 AM CDT Appointment Department of Radiology in [address] [phone] Phani Cook M.D. [address] [place] [phone] Discharge Disposition: Home or Self Care 12/20/2023 1:45 PM CDT Office Visit Department of Cardiovascular Diseases in [address] [phone] Phani Cook M.D. [address] [place] [phone] Scheduled Referrals Name Type Priority Associated Diagnoses Order Schedule Anticoagulation nurse visit (clinic) Outpatient Referral Routine Expected: 10/04/2023, Expires: 12/06/2024 documented as of this encounter Procedures Procedure Name Priority Date/Time Associated Diagnosis Comments PROTHROMBIN TIME (PT), P Routine 09/06/2023 PROTHROMBIN TIME (PT), P Routine 08/30/2023 PROTHROMBIN TIME (PT), P Routine 08/23/2023 documented in this encounter Results * Prothrombin Time (PT) (09/06/2023) EXT INR 2.20 PATIENT PO INT OF CARE DEVICE Blood (Blood, Venous) Willow Guajardo M.D. LAB BLOOD ADD-ON Performing Organization Address [facility] Co de Phone Number PATIENT POINT OF CARE DEVICE * Prothrombin Time (PT) (08/30/2023) EXT INR 2.00 PATIENT PO INT OF CARE DEVICE Blood (Blood, Venous) Willow Guajardo M.D. LAB BLOOD ADD-ON Performing Organization Address [facility] Co de Phone Number PATIENT POINT OF CARE DEVICE * Prothrombin Time (PT) (08/23/2023) EXT INR 2.00 PATIENT PO INT OF CARE DEVICE Blood (Blood, Venous) Willow Guajardo M.D. 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 [address] [place] [address] [place] [phone] PCP - General Family Medicine 03/28/[address] [facility] [place] [address] 10/11/17 documented as of this encounter
--- OUTSIDE RECORDS SUMMARY | 2023-09-30 08:39 | XMS_ITS | Encounter Summary ---
Author Organization [facility] Address [address] [place] [address] Care Team Providers Care Plasterer Tender Name Role Phone Willow Guajardo M.D. Primary Care Provider [phone] Encounter Details Date Type Department Care Team (Late st Contact Info) Description 07/15/2023 Abstract [place], [place] [address] [place] [phone] Provider, Historical Social History Tobacco Use Types Packs/Day Years Used Date Smoking Tobacco: Never Passive Smoke Exposure: Never Smokeless Tobacco: Never Alcohol Use Standard Drinks/Week Comments Not Currently 0 (1 standard drink = 0.6 oz pure alcohol) 1 drink approx every 2 weeks. [facility] Utilities Answer Date Recorded In the past 12 months has th e electric, gas, oil, or water company threatened to shut off services in your [...] week 03/05/2022 How often do you attend [facility] or sikhism services? Patient declined 03/05/2022 Do you belong to any clubs o r organizations such as anabaptism groups, unions, fraternal or athletic groups, or [...] Answer Date Recorded PHQ-2 Score 0 11/18/2021 [facility] of Occupat ional Health - Occupational [...] your living situation today? I have a [facility] place to live 07/14/2023 Education Answer [...] CDT Anticoagulation Visit Department of Anticoagulation in [place], [place] [address] [place] [address] Willow Guajardo M.D. [address] [place] [phone] 10/05/2023 8:45 AM CDT Clinical Support Department of Rehabilitation Services in [address] [phone] Symone Trujillo APRN, Lauren.NSameer., D.N.P. [address] [place] [phone] Sonali Morrison, P.TClarence 10/25/2023 8:30 AM CDT Clinical Support Department of Rehabilitation Services in [address] [phone] Symone Trujillo APRN, Lauren.NSameer., D.N.P. [address] [place] [phone] Sonali Morrison, P.T. 12/16/2023 10:00 AM CDT Appointment Department of Radiology in [address] [phone] Phani Cook M.D. [address] [place] [phone] Discharge Disposition: Home or Self Care 12/20/2023 1:45 PM CDT Office Visit Department of Cardiovascular Diseases in [address] [phone] Phani Cook M.D. [address] [place] [phone] documented as of this encounter Visit Diagnoses Not on filedocumented in this encounter Additional Health Concerns Assessment Noted Time PHQ-9 Depression Total Score: 2 02/24/20 18 2:31 PM DIRECTOR OF FOOD AND NUTRITION documented as of this encounter Care Teams Plasterer Tender Relationship Specialty Start Date End Date Willow Guajardo M.D. [address] [place] [phone] PCP - General Family Medicine 03/28/[address] [address] 10/11/17 documented as of this encounter
--- OUTSIDE RECORDS SUMMARY | 2023-09-30 08:39 | XMS_ITS | Encounter Summary ---
Author Organization [facility] Address [address] [place] [address] Care Team Providers Care Boarder Machine Name Role Phone Willow Guajardo M.D. Primary Care Provider [phone] Reason for Visit * Reason Onset Date Comments Anticoagulation 07/16/2023 Anticoagulation track updated s/p hospitalization Encounter Details Date Type Department Care Team (Latest Contact Info) Description 07/16/2023 Clinical Communication Department of Anticoagulation in [place], [place] [address] [place] [phone] Khloe Russo RWilfred [address] [place] [phone] Anticoagulation (Anticoagulation track updated s/p hospitalization) Social History Tobacco Use Types Packs/Day Years Used Date Smoking Tobacco: Never Passive Smoke Exposure: Never Smokeless Tobacco: Never Alcohol Use Standard Drinks/Week Comments Not Currently 0 (1 standard drink = 0.6 oz pure alcohol) 1 drink approx every 2 weeks. [facility] Utilities Answer Date Recorded In the past 12 months has e [employer], [employer], or [employer] threatened to shut off services in your [...] week 03/05/2022 How often do you attend [facility] or cheondoism services? Patient declined 03/05/2022 Do you belong to any clubs o r organizations such as yazidi groups, unions, fraternal or athletic groups, or [...] Answer Date Recorded PHQ-2 Score 0 11/18/2021 [facility] Occupat ional Health - Occupational Stress [...] your living situation today? I have a [facility] place to live 07/14/2023 Education Answer [...] this encounter Patient Instructions * Patient Instructions* Emilia Buckley, R.N. - 07/16/2023 9:04 AM CDT The day before your next INR review you will receive a message via Patient Online Service (portal) asking you to report your INR results and complete an attached questionnaire. Your INR is low placing you at increased risk for clotting. Please refer to the attached anticoagulation visit summary for a list of reasons to notify your anticoagulation team or seek emergency assistance. Please continue to test your INR weekly and contact the anticoagulation clinic on the day oftesting if your INR falls outside of goal range or if your INR changes by 1.0 or greater in a week.You will need to call the Anticoagulation Program for warfarin dosing at the scheduled time for your nurse visit, as indicated on your Patient Appointment Guide (PAG). To reschedule your appointment or for questions about your warfarin, please call Primary Care Anticoagulation Program at [phone] from 7:30 am to 4:30 pm. Wednesday-Wednesday [...] if you start any herbal or other vlak-vbz-pdkmezt product (check with your doctor, a nurse, or pharmacist). If you change your diet significantly. If you decide to stop or start using tobacco or alcohol. If you notice unusual bruising or bleeding. If you notice dark, tarry, or bright red stools or blood in your urine. If you have a painful and swollen calf. documented in this encounter Miscellaneous Notes * Telephone Encounter - Khloe Russo R.N. - 07/16/2023 7:41 AM CDT Reason for admit: Primary Osteoarthritis Hip Right Admit-Discharge dates: 07/13-07/14 Any new diagnoses pertinent to anticoagulation?: No Medication changes: Start: Acetaminophen, oxycodone, sennosides-docusate sodium Tracker updated with inpatient dosing: YES Discharge AVS recommendations for: - Warfarin dosing: resume per anticoag clinic - INR recheck: 07/18 Did patient have a previously planned procedure during admission? Yes - Was patient given post procedure instructions before admission? Yes - Are there differences between the plan on discharge AVS compared to the previously given post procedure plan? (Review warfarin, enoxaparin if applicable, & next INR date) Yes - Send to pharmacy for review Nursing judgement considerations: N/A Sent to pharmacy for review: YES See anticoagulation tracker for final plan. documented in this encounter Plan of Treatment Upcoming Encounters Date Type Department Care Team (Latest Contact Info) Description 10/04/2023 9:15 AM CDT Anticoagulation Visit Department of Anticoagulation in [address] [phone] Willow Guajardo M.D. [address] [place] [phone] 10/05/2023 8:45 AM CDT Clinical Support Department of Rehabilitation Services in [address] [phone] Symone Trujillo APRN, C.N.P., D.N.P. [address] [place] [phone] Sonali Morrison, P.TClarence 10/25/2023 8:30 AM CDT Clinical Support Department of Rehabilitation Services in [address] [phone] Symone Trujillo APRN, C.N.P., D.N.P. [address] [place] [phone] Sonali Morrison P.T. 12/16/2023 10:00 AM CDT Appointment Department of Radiology in [address] [phone] Phani Cook M.D. [address] [place] [phone] Discharge Disposition: Home or Self Care 12/20/2023 1:45 PM CDT Office Visit Department of Cardiovascular Diseases in [address] [phone] Phani Cook M.D. 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 [address] [place] [phone] PCP - General Family Medicine 03/28/[address] [address] 10/11/17 documented as of this encounter
--- OUTSIDE RECORDS SUMMARY | 2023-09-30 08:39 | XMS_ITS | Encounter Summary ---
Author Organization [facility] Address [address] [place] [address] Care Team Providers Care Felling Machine Operator Name Role Phone Willow Guajardo M.D. Primary Care Provider [phone] Reason for Visit * Physical Therapy (Routine) - Authorized Specialty Diagnoses / Procedures Referred By Alexx espinoza Referred To Contact Diagnoses Aftercare Total Hip Arthroplasty Procedures PT Ongoing treatment Symone Trujillo APRN, C.N.P., D.N.P. [address] [place] [phone] [facility] Region Referral ID Status Reason Start Date Expiration Date V isits Requested Visits Authorized [id number] Authorized 07/21/2023 03/07/2024 99 99 Encounter Details Date Type Department Care Team (Latest Contact Info) Description 08/18/2023 12:30 PM CDT Clinical Support Department of Rehabilitation Services in [address] [phone] Symone Trujillo APRN, C.N.P., D.N.P. [address] [place] [phone] Sonali Morrison P.T. Aftercare Total Hip Arthroplasty Social History Tobacco Use Types Packs/Day Years Used Date Smoking Tobacco: Never Passive Smoke Exposure: Never Smokeless Tobacco: Never Alcohol Use Standard Drinks/Week Comments Not Currently 0 (1 standard drink = 0.6 oz pure alcohol) 1 drink approx every [address] [facility] [employer] Answer Date Recorded In the past 12 months has e [employer], gas, oil, or water [employer] threatened to shut off services in your [...] How often do you attend chur or judaism services? Patient declined 03/05/2022 Do you belong to any clubs o r organizations such as zoroastrianism groups, unions, fraternal or athletic groups, or [...] Answer Date Recorded PHQ-2 Score 0 11/18/2021 [facility] - Occupational [...] Progress Notes * Sonali Morrison PNorman. - 08/18/2023 12:30 PM CDT Physical Therapy Outpatient Treatment Note SUBJECTIVE Patient's Name: Meeta Urbina Patricia Referring Provider: Symone Trujillo APRN, C.NClarence* Visit Diagnosis: 1. Aftercare Total Hip Arthroplasty Payor: [facility] / Plan: [facility] / Product Type: Medicaid HMO / No data recorded Epic Visit Count: 5 Patient comments: pt presents to PT doing well today. Reports her medial knee and down the inside of her right leiva has been sore, had to stop doing the squats as it seemed to bother a bit at her knee joint, continues to walk in the stores with shopping cart which feels good OBJECTIVE Pain: 1/10 on average Ortho Exam Tenderness medial joint line right knee TREATMENT Treatment today consisted of: Therapeutic Exercise: SciFit x 11 min level #1 with seat high to avoid a greater hip angle - no pain with this today - Tactile cues to keep knee in line with hip during *heel cord stretch off edge of bottom stair x 45 sec Standing exs holding onto parallel bars: Ambulation with B UE hold working on even gait pattern and light hold x 50 feet Mini squat x 15 - tactile cues for form needed- moving hips back FIRST helped today toe raises standing erect x 20 heel raises at 45 degree angle x 20 standing glute squeeze Seated heel slide x 20 reps Supine ankle pumps x 20 Supine glute sets x 20 Heel slide with assist x 15 reps - pt fatigues quickly with this Sit<>stand x 5 reps working on even angle B feet during and pt does well with this *slow transitions sit <>supine needing Leopoldo to lift right LE onto table Added: Side and forward step ups x 15 right *Standing hip abduction x 10 ea *standing hip extension x 10 ea *NBOS on foam pad no UE support and head turns L/R and up and down *tandem stance no UE support and head turns as above *eyes closed each position 10 '' x 3 reps each *quad sets with towel under knee x 15 *quad sets moving into SLR flexion at 20 degrees - this gave some increased medial knee pain - edu to NOT trail this exs again until next week Home Exercise Program/Education: above routine daily and walking frequently during the day Patient reports good HEP compliance. MANUAL: STM right medial knee , medial hamstring and medial leiva Assessment Clinical Impression: Patient presents to physical [...] with Patient Therapeutic Interventions Manual Therapy (min): 10 min Therapeutic Exercise (min): 35 min Time Tracking Total Timed Units (min): 45 min Total Treatment Time (min): 45 min documented in this encounter Plan of Treatment Upcoming Encounters Date Type Department Care Team (Latest Contact Info) Description 10/04/2023 9:15 AM CDT Anticoagulation Visit Department of Anticoagulation in [place] [address] [place] [address] Willow Guajardo M.D. [address] [place] [phone] 10/05/2023 8:45 AM CDT Clinical Support Department of Rehabilitation Services in [address] [phone] Symone Trujillo APRN, Lauren.N.P., D.N.P. [address] [place] [phone] Sonali Morrison P.TClarence 10/25/2023 8:30 AM CDT Clinical Support Department of Rehabilitation Services in [address] [phone] Symone Trujillo APRN, ArvindN.Jigar., D.N.P. [address] [place] [phone] Sonali Morrison P.T. 12/16/2023 10:00 AM CDT Appointment Department of Radiology in [address] [phone] Phani Cook M.D. [address] [place] [phone] Discharge Disposition: Home or Self Care 12/20/2023 1:45 PM CDT Office Visit Department of Cardiovascular Diseases in [address] [phone] Phani Cook M.D. [address] [place] [phone] documented as of this encounter Visit Diagnoses Diagnosis Aftercare Total Hip Arthroplasty documented in this encounter Additional Health Concerns Assessment Noted Time PHQ-9 Depression Total Score: 2 02/24/20 18 2:31 PM INSPECTOR [employer] documented as of this encounter Care Teams Felling Machine Operator Relationship Specialty Start Date End Date Willow Guajardo M.D. [address] [place] [phone] PCP - General Family Medicine 03/28/[address] [address] 10/11/17 documented as of this encounter
--- OUTSIDE RECORDS SUMMARY | 2023-09-30 08:39 | XMS_ITS | Encounter Summary ---
Author Organization [facility] Address [address] [place] [address] Care Team Providers Care Men'S [employer] Boys' Clothing Salesperson Name Role Phone Willow Guajardo M.D. Primary Care Provider [phone] Reason for Referral * Outpatient (Routine) - Closed Specialty Diagnoses / Procedures Referred By Contac t Referred To Contact Willow Guzman M.D. [address] [place] [phone] [facility] Region Referral ID Status Reason Start Date Expiration Date Visits Re quested Visits Authorized [id number] Closed 07/19/2023 01/17/2025 1 1 Reason for Visit * Outpatient (Routine) - Closed Specialty Diagnoses / Procedures Referred By Contac t Referred To Contact Willow Guzman M.D. [address] [place] [phone] [facility] Referral ID Status Reason Start Date Expiration Date Visits Re quested Visits Authorized [id number] Closed 07/05/2023 01/03/2025 1 1 Encounter Details Date Type Department Care Team (Latest Contact Info) Description 07/19/2023 11:15 AM CDT Anticoagulation Visit Department of Anticoagulation in [place], [place] [address] [place] [address] Willow Guajardo M.D. [id number] [phone] Prosthesis Aortic Valve (Primary Dx); Custodial Anticoagulant Treatment [Z79.01]; Monitoring For Therapeutic Drug Therapy [Z51.81]; Aftercare Total Hip Arthroplasty Social History Tobacco Use Types Packs/Day Years Used Date Smoking Tobacco: Never Passive Smoke Exposure: Never Smokeless Tobacco: Never Alcohol Use Standard Drinks/Week Comments Not Currently 0 (1 standard drink = 0.6 oz pure alcohol) 1 drink approx every 2 weeks. [facility] [employer] Answer Date Recorded In the past 12 months has e [employer], gas, oil, or water [employer] threatened to shut off services in your [...] 03/05/2022 How often do you attend chur ch or taoist services? Patient declined 03/05/2022 Do you belong to any clubs o r organizations such as uatsdin groups, unions, fraternal or athletic groups, or [...] Answer Date Recorded PHQ-2 Score 0 11/18/2021 [facility] - [...] this encounter Patient Instructions * Patient Instructions* Joy Aguillon, RClarenceN. - 07/19/2023 11:15 AM CDT The day before your next INR review you will receive a message via Patient Online Service (portal) asking you to report your INR results and complete an attached questionnaire. Please continue to test your INR weekly and contact the anticoagulation clinic on the day of testing if your INR falls outside of goal range or if your INR changes by 1.0 or greater in a week. You will need to call the Anticoagulation Program for warfarin dosing at the scheduled time for your nurse visit, as indicated onyour Patient Appointment Guide (PAG). To reschedule your appointment or for questions about your warfarin, please call Primary Care Anticoagulation Program at [phone] from 7:30 am to 4:30 pm. Wednesday-Wednesday [...] if you start any herbal or other [id number] product (check with your doctor, a nurse, or pharmacist). If you change your diet significantly. If you decide to stop or start using tobacco or alcohol. If you notice unusual bruising or bleeding. If you notice dark, tarry, or bright red stools or blood in your urine. If you have a painful and swollen calf. documented in this encounter Progress Notes * Joy Aguillon R.N. - 07/19/2023 11:15 AM CDT Warfarin Maintenance Nursing Protocol Goal Range NON-STANDARD (version approved 04/2021) Visit Type: Home/Self Test INR Primary reason for visit: Home INR weekly INR, routine f/u Information provided by:patient INR result: 1.8 Goal range: 1.5-2.0 Inclusion Criteria: All inclusion criteria met. Proceeded to exclusion criteria. Exclusion Criteria: Section 1: No Section 1 exclusion criteria, proceeded to Section 2. Section 2: No Section 2 exclusion criteria, proceeded to screening criteria. Screening Criteria: Patient has started, stopped, or has had a dose adjustment of medication: yes. Since last INR check. Medication: tylenol 4 gm daily was started on in hospital. Medication listed on Appendix A, continued with Appendix A for dosing and follow-up., Patient is currently enrolled in Home INR Program. Proceeded to maintenance warfarin dosing and follow-up, but follow-up INR not to extend beyond Home INR follow-up order., and Patient has had a change in diet, lifestyle, alcohol intake, tobacco habits,health status, hospitalization, or surgery in the last 3 days: yes. Hospitalization info: hip surgery last week, discharged, now home recovering. Proceeded to maintenance warfarin dosing and follow-up, but have patient return for follow-up INR in 7-10 days. Additional Info: Home INR Program: Patient performs routine INRs weekly on Wednesday Next routine monthly appointment for INR review (date/time): 08/08. Patient will initiate contact to Anticoagulation Service if INR out of goal range on day of Home INR check OR if INR is higher or lower than last INR by 1 or more. Warfarin Management Screening Questionnaire completed. Previous INR was subtherapeutic. Today???s INR is Therapeutic. Dosing and follow up recommendation: Protocol dosing range for INR is 0.1 below goal range to 0.1 above goal range: INR within goal range. No change in weekly dose. Currently bridging? no. Next INR in 7 days per positive screening criteria listed above. Additional dosing or follow-up information: Protocol completed. Per nursing judgment, provider consulted. Dosing per tracker. Next INR in 7 days per consult with Anticoagulation [facility]. Provider consulted: Sameer Sharp-Anticoagulation [facility] Pt is on injectable anticoagulant: No. Plan [...] CDT Anticoagulation Visit Department of Anticoagulation in [place], [place] [address] [place] [address] Willow Guajardo M.D. [address] [place] [phone] 10/05/2023 8:45 AM CDT Clinical Support Department of Rehabilitation Services in [address] [phone] Symone Trujillo APRN, C.N.P., D.N.P. [address] [place] [phone] Sonali Morrison P.TClarence 10/25/2023 8:30 AM CDT Clinical Support Department of Rehabilitation Services in [address] [phone] Symone Trujillo APRN, C.N.Jigar., D.N.P. [address] [place] [phone] Sonali Morrison P.T. 12/16/2023 10:00 AM CDT Appointment Department of Radiology in [address] [phone] Phani Cook M.D. [address] [place] [phone] Discharge Disposition: Home or Self Care 12/20/2023 1:45 PM CDT Office Visit Department of Cardiovascular Diseases in [address] [phone] Phani Cook M.D. [address] [place] [phone] Scheduled Referrals Name Type Priority Associated Diagnoses Order Schedule Anticoagulation nurse visit (clinic) Outpatient Referral Routine Expected: 07/26/2023, Expires: 10/18/2024 documented as of this encounter Procedures Procedure Name Priority Date/Time Associated Diagnosis Comments PROTHROMBIN TIME (PT), P Routine 07/19/2023 documented in this encounter Results * Prothrombin Time (PT) (07/19/2023) EXT INR 1.80 PATIENT PO INT OF CARE DEVICE Blood (Blood, Venous) Historical Provider LAB BLOOD ADD-ON PATIENT POINT OF CARE DEVICE documented in this encounter Visit Diagnoses Diagnosis Prosthesis Aortic Valve- Primary Conveyor Monitor Anticoagulant Treatment [Z79.01] Monitoring For Therapeutic Drug Therapy [Z51.81] Aftercare Total Hip Arthroplasty documented in this encounter Additional Health Concerns Assessment Noted Time PHQ-9 Depression Total Score: 2 02/24/20 18 2:31 PM 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 [address] [place] [phone] PCP - General Family Medicine 03/28/[address] [place] [address] 10/11/17 documented as of this encounter
--- OUTSIDE RECORDS SUMMARY | 2023-09-30 08:39 | XMS_ITS | Encounter Summary ---
Author Organization [facility] Address [address] [place] [address] Care Team Providers Care Orthopedic Cast Specialist Name Role Phone Willow Guajardo M.D. Primary Care Provider Reason for Visit * Physical Therapy (Routine) - Authorized Specialty Diagnoses / Procedures Referred By Alexx espinoza Referred To Contact Diagnoses Aftercare Total Hip Arthroplasty Procedures PT Ongoing treatment Symone Trujillo APRN, C.N.P., D.N.P. [address] [place] [phone] [facility] Region Referral ID Status Reason Start Date Expiration Date V isits Requested Visits Authorized [id number] Authorized 07/21/2023 03/07/2024 99 99 Encounter Details Date Type Department Care Team (Latest Contact Info) Description 07/27/2023 9:30 AM CDT Clinical Support Department of Rehabilitation Services in [address] [phone] Symone Trujillo APRN, C.N.P., D.N.P. [address] [place] [phone] Sonali Morrison P.T. Aftercare Total Hip Arthroplasty Social History Tobacco Use Types Packs/Day Years Used Date Smoking Tobacco: Never Passive Smoke Exposure: Never Smokeless Tobacco: Never Alcohol Use Standard Drinks/Week Comments Not Currently 0 (1 standard drink = 0.6 oz pure alcohol) 1 drink approx every 2 weeks. [facility] [employer] Answer Date Recorded In the past 12 months has e [employer], gas, oil, or water [employer] threatened to shut off services in your [...] How often do you attend chur or mosque services? Patient declined 03/05/2022 Do you belong to any clubs o r organizations such as caodaism groups, unions, fraternal or athletic groups, or [...] Answer Date Recorded PHQ-2 Score 0 11/18/2021 [facility] - [...] this encounter Progress Notes * Sonali Morrison P.T. - 07/27/2023 9:30 AM CDT Physical Therapy Outpatient Treatment Note SUBJECTIVE Patient's Name: Meeta Pinedarachid Referring Provider: Symone Trujillo APRN, C.N.* Visit Diagnosis: 1. Aftercare Total Hip Arthroplasty Payor: [facility] / Plan: [facility] / Product Type: Medicaid HMO / No data recorded Epic Visit Count: 2 Patient comments: pt presents to PT doing well today. Just had ortho f/u this AM and removed stiches and they said everything looks good she reports. OBJECTIVE Pain: 2/10 on average Ortho Exam TREATMENT Treatment today consisted of: Therapeutic Exercise: SciFit x 5 min with seat high to avoid a greater hip angle Seated heel slide x 20 reps Supine ankle pumps x 20 Standing glute sets x 20 Standing heel / toe raises x 20 Supine glute sets x 20 [place] of heel slide with assist x 5 reps but this was sore so stopped Sit<>stand x 5 reps working on correct form with moving right heel out in front for lesseningangle *slow transitions sit <>supine needing Leopoldo to lift right LE onto table Home Exercise Program/Education: above routine daily and walking frequently during the day Patient reports good HEP compliance. Assessment Clinical Impression: Patient presents to physical therapy with signs and symptoms consistent with s/p right KRISTINE on 07/14/23. Functional Goals and Timeframes: PT Goal #1: Patient will be able to ambulate without AD for 1000 feet or greater without limp or pain. PT Goal #1 Date: 10/06/23 PT Goal #1 Status: Progressing PT Goal #2: Patient will have WNL [...] pathway Time Spent with Patient Therapeutic Interventions Therapeutic Exercise (min): 32 min Time Tracking Total Timed Units (min): 32 min Total Treatment Time (min): 32 min documented in this encounter Plan of Treatment Upcoming Encounters Date Type Department Care Team (Latest Contact Info) Description 10/04/2023 9:15 AM CDT Anticoagulation Visit Department of Anticoagulation in [address] [phone] Willow Guajardo M.D. [address] [place] [phone] 10/05/2023 8:45 AM CDT Clinical Support Department of Rehabilitation Services in [address] [phone] Symone Trujillo APRN, C.N.P., D.N.P. [address] [place] [phone] Sonali Morrison PVicky 10/25/2023 8:30 AM CDT Clinical Support Department of Rehabilitation Services in [address] [phone] Symone Trujillo APRN, C.N.P., D.N.P. [address] [place] [phone] Sonali Morrison P.T. 12/16/2023 10:00 AM CDT Appointment Department of Radiology in [address] [phone] Phani Cook M.D. [address] [place] [phone] Discharge Disposition: Home or Self Care 12/20/2023 1:45 PM CDT Office Visit Department of Cardiovascular Diseases in [address] [phone] Phani Cook M.D. 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 [address] [place] [phone] PCP - General Family Medicine 03/28/[address] [address] 10/11/17 documented as of this encounter
--- OUTSIDE RECORDS SUMMARY | 2023-09-30 08:39 | XMS_ITS | Encounter Summary ---
Author Organization [facility] Address [address] [place] [address] Care Team Providers Care Baseball Pitcher Name Role Phone Willow Guajardo M.D. Primary Care Provider +1- [phone] Reason for Referral * Outpatient (Routine) - Closed Specialty Diagnoses / Procedures Referred By Alexx espinoza Referred To Contact Orthopedic Surgery Symone Trujillo APRN, C.N.P., D.N.P. [address] [place] [phone] [facility] Region Referral ID Status Reason Start Date Expiration Date Visits Re quested Visits Authorized [id number] Closed 07/27/2023 01/25/2025 1 1 Reason for Visit * Reason Comments Arthroplasty Post-op Encounter Details Date Type Department Care Team (Late st Contact Info) Description 07/27/2023 8:00 AM CDT Office Visit Department of Orthopedic Surgery in [address] [place] [phone] Symone Trujillo APRN, C.N.P., D.N.P. [address] [facility] [place] [phone] Aftercare Total Hip Arthroplasty (Primary Dx) Discharge Disposition: Home or Self Care Social History Tobacco Use Types Packs/Day Years Used Date Smoking Tobacco: Never Passive Smoke Exposure: Never Smokeless Tobacco: Never Alcohol Use Standard Drinks/Week Comments Not Currently 0 (1 standard drink = 0.6 oz pure alcohol) 1 drink approx every 2 weeks. [facility] [employer] Answer Date Recorded In the past 12 months has e [employer], gas, oil, or water [employer] threatened to shut off services in your [...] often do you attend chur ch or alevism services? Patient declined 03/05/2022 Do you belong to any clubs o r organizations such as shinto groups, unions, fraternal or athletic groups, or [...] Answer Date Recorded PHQ-2 Score 0 11/18/2021 [facility] - Occupational Stress Questionnaire Answer Date Recorded [...] Date Recorded Dental: Regular Dentist Yes 06/08/19 24 Employment Answer Date Recorded Employment status [...] as of this encounter Progress Notes * Symone Trujillo APRN, C.N.P., D.N.P. - 07/27/2023 8:00 AM CDT Meeta is a pleasant 52-year-old who is 2 weeks status post Tino robotic CT-guided right total hip arthroplasty on 07/14/2023. She denies any signs or symptoms of infection. No fevers or chills. And she has been abiding by dislocation precautions and has seen physical therapy. She was concerned abouther hemoglobin but really has been minimally symptomatic. She has resumed her anticoagulation. Physical exam-right hip surgical incision is well approximated healing well there is no signs of infection. She is mild swelling around the incision. Nylon sutures removed and Steri-Strips applied. She has no calf tenderness negative Homans sign. Diagnostic studies reviewed her postop x-rays. Hemoglobin postoperatively 10.1 Impression and plan-Meeta is a pleasant 52-year-old who is status post robotically assisted CT-guided right total hip arthroplasty and doing well. We discussed watching for signs symptoms of infection. As well as incisional care. We discussed her activity and she will continue work with physical therapy. She will continue with her anticoagulation. I do not feel she needs a repeat of her hemoglobinat this time she does have some iron supplements that she is taken in the past and she will take. She does not have any active bleeding and at this time we will not repeat her hemoglobin unless she becomes symptomatic or has any new or active bleeding. She agrees and understands that plan. We will plan to see her back in 4-6 weeks and her questions were answered documented in this encounter Plan of Treatment Upcoming Encounters Date Type Department Care Team (Latest Contact Info) Description 10/04/2023 9:15 AM CDT Anticoagulation Visit Department of Anticoagulation in [address] [phone] Willow Guajardo M.D. [address] [place] [phone] 10/05/2023 8:45 AM CDT Clinical Support Department of Rehabilitation Services in [address] [phone] Symone Trujillo APRN, ArvindN.Jigar., D.N.P. [address] [place] [phone] Sonali Morrison, P.T. 10/25/2023 8:30 AM CDT Clinical Support Department of Rehabilitation Services in [address] [phone] Symone Trujillo APRN, Lauren.N.P., D.N.P. [address] [place] [phone] Sonali Morrison, P.T. 12/16/2023 10:00 AM CDT Appointment Department of Radiology in [address] [phone] Phani Cook M.D. [address] [place] [phone] Discharge Disposition: Home or Self Care 12/20/2023 1:45 PM CDT Office Visit Department of Cardiovascular Diseases in [place], [place] [address] [place] [phone] Phani Cook M.D. 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 [address] [place] [phone] PCP - General Family Medicine 03/28/[address] [address] 10/11/17 documented as of this encounter
--- OUTSIDE RECORDS SUMMARY | 2023-09-30 08:39 | XMS_ITS | Encounter Summary ---
Author Organization [facility] Address [address] [place] [address] Care Team Providers Care Campus Security Director Name Role Phone Willow Guajardo M.D. Primary Care Provider [phone] Reason for Visit * Physical Therapy (Routine) - Authorized Specialty Diagnoses / Procedures Referred By Alexx espinoza Referred To Contact Diagnoses Aftercare Total Hip Arthroplasty Procedures PT Ongoing treatment Symone Trujillo APRN, C.N.P., D.N.P. [address] [place] [address] [facility] Region Referral ID Status Reason Start Date Expiration Date V isits Requested Visits Authorized [id number] Authorized 07/21/2023 03/07/2024 99 99 Encounter Details Date Type Department Care Team (Latest Contact Info) Description 08/11/2023 12:30 PM CDT Clinical Support Department of Rehabilitation Services in [address] [phone] Symone Trujillo APRN, C.N.P., D.N.P. [address] [place] [phone] Sonali Morrison P.T. Aftercare Total Hip Arthroplasty Social History Tobacco Use Types Packs/Day Years Used Date Smoking Tobacco: Never Passive Smoke Exposure: Never Smokeless Tobacco: Never Alcohol Use Standard Drinks/Week Comments Not Currently 0 (1 standard drink = 0.6 oz pure alcohol) 1 drink approx every 2 weeks. [facility] [employer] Answer Date Recorded In the past 12 months has e Anyone Home, gas, oil, or water [employer] threatened to shut off services in your [...] How often do you attend chur or mu-ism services? Patient declined 03/05/2022 Do you belong to any clubs o r organizations such as episcopal groups, unions, fraternal or athletic groups, or [...] Answer Date Recorded PHQ-2 Score 0 11/18/2021 [facility] - Occupational Stress [...] Progress Notes * Sonali Morrison P.T. - 08/11/2023 12:30 PM CDT Physical Therapy Outpatient Treatment Note SUBJECTIVE Patient's Name: Meeta Urbina Patricia Referring Provider: Symone Trujillo APRN, C.NClarence* Visit Diagnosis: 1. Aftercare Total Hip Arthroplasty Payor: [facility] / Plan: [facility] / Product Type: Medicaid HMO / No data recorded Epic Visit Count: 4 Patient comments: pt presents to PT doing well today. Reports her medial knee and down the inside of her right leiva has been sore, had to stop doing the squats as it seemed to bother a bit at her knee joint, continues to walk in the stores with shopping cart which feels good OBJECTIVE Pain: 2/10 on average Ortho Exam Tenderness medial joint line right knee TREATMENT Treatment today consisted of: Therapeutic Exercise: SciFit x 3 min with seat high to avoid a greater hip angle - stopped due to knee irritation Standing exs holding onto parallel bars: Ambulation with B UE hold working on even gait pattern and light hold x 50 feet *mini squat x 15 - tactile cues for [...] Added: Side and forward step ups x 10 right Home Exercise Program/Education: above routine daily and [...] Therapy (min): 10 min Therapeutic Exercise (min): 30 min Time Tracking Total Timed Units (min): 40 min Total Treatment Time (min): 40 min documented in this encounter Plan of Treatment Upcoming Encounters Date Type Department Care Team (Latest Contact Info) Description 10/04/2023 9:15 AM CDT Anticoagulation Visit Department of Anticoagulation in [place] [address] [place] [phone] Willow Guajardo M.D. [address] [place] [phone] 10/05/2023 8:45 AM CDT Clinical Support Department of Rehabilitation Services in [address] [phone] Symone Trujillo APRN, C.N.P., D.N.P. [address] [place] [phone] Sonali Morrison PVicky 10/25/2023 8:30 AM CDT Clinical Support Department of Rehabilitation Services in [address] [phone] Symone Trujillo APRN, C.NClarenceP., D.N.P. [address] [place] [phone] Sonali Morrison P.T. 12/16/2023 10:00 AM CDT Appointment Department of Radiology in [address] [phone] Phani Cook M.D. [address] [place] [phone] Discharge Disposition: Home or Self Care 12/20/2023 1:45 PM CDT Office Visit Department of Cardiovascular Diseases in [address] [phone] Phani Cook M.D. 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 [address] [place] [phone] PCP - General Family Medicine 03/28/[address] [address] 10/11/17 documented as of this encounter
--- OUTSIDE RECORDS SUMMARY | 2023-09-30 08:39 | XMS_ITS | Encounter Summary ---
Author Organization [facility] Address [address] [place] [address] Care Team Providers Care Hadoop Administrator Name Role Phone Willow Guajardo M.D. Primary Care Provider [phone]- [phone] Reason for Referral * Outpatient (Routine) - Closed Specialty Diagnoses / Procedures Referred By Alexx espinoza Referred To Contact Willwo Guzman M.D. [address] [place] [phone] [facility] Referral ID Status Reason Start Date Expiration Date Visits Re quested Visits Authorized [id number] Closed 08/09/2023 02/07/2025 1 1 Reason for Visit * Outpatient (Routine) - Closed Specialty Diagnoses / Procedures Referred By Contac t Referred To Contact Willow Guzman M.D. [phone] [place] [phone] [facility] Referral ID Status Reason Start Date Expiration Date Visits Re quested Visits Authorized [id number] Closed 07/26/2023 01/24/2025 1 1 Encounter Details Date Type Department Care Team (Latest Contact Info) Description 08/09/2023 1:15 PM CDT Anticoagulation Visit Department of Anticoagulation in [place], [place] [address] [place] [address] Willow Guajardo M.D. [address] [place] [phone] Prosthesis Aortic Valve (Primary Dx); Chcf Anticoagulant Treatment [Z79.01]; Monitoring For Therapeutic Drug Therapy [Z51.81] Social History Tobacco Use Types Packs/Day Years Used Date Smoking Tobacco: Never Passive Smoke Exposure: Never Smokeless Tobacco: Never Alcohol Use Standard Drinks/Week Comments Not Currently 0 (1 standard drink = 0.6 oz pure alcohol) 1 drink approx every 2 weeks. [facility] [employer] Answer Date Recorded In the past 12 months has [employer] gas, oil, or water [employer] threatened to shut off services in your [...] How often do you attend chur or scientology services? Patient declined 03/05/2022 Do you belong to any clubs o r organizations such as oriental orthodox groups, unions, fraternal or athletic groups, or [...] Answer Date Recorded PHQ-2 Score 0 11/18/2021 [facility] Occupat ional Health [...] this encounter Patient Instructions * Patient Instructions* Eleanor Naylor RClarenceN. - 08/09/2023 1:15 PM CDT The day before your next INR [...] please call Primary Care Anticoagulation Program at [phone] from 7:30 am to 4:30 pm. Wednesday-Wednesday [...] if you start any herbal or other bjyn-sdo-uuhxwfb product (check with your doctor, a nurse, or pharmacist). If you change your diet significantly. If you decide to stop or start using tobacco or alcohol. If you notice unusual bruising or bleeding. If you notice dark, tarry, or bright red stools or blood in your urine. If you have a painful and swollen calf. documented in this encounter Progress Notes * Eleanor Naylor R.N. - 08/09/2023 1:15 PM CDT Warfarin Maintenance Nursing Protocol Goal Range NON-STANDARD (version approved 04/2021) Visit Type: Telephone and Home/Self Test INR Primary reason for visit: Home INR weekly INR, routine f/u Information provided by:patient INR result: 1.5 Goal range: 1.5-2.0 Inclusion Criteria: All inclusion criteria met. Proceeded to exclusion criteria. Exclusion Criteria: Section 1: No Section 1 exclusion criteria, proceeded to Section 2. Section 2: No Section 2 exclusion criteria, proceeded to screening criteria. Screening Criteria: Patient has started, stopped, or has had a dose adjustment of medication: yes. Since last INR check. Medication: Davis light high potency was started on 08/06/23. Medication not on AppendixA and no information per [employer] (unknown), per nursing judgement, provider consulted. and Patient is currently enrolled in Home INR Program. Proceeded to maintenance warfarin dosing and follow-up, but follow-up INR not to extend beyond Home INR follow-up order. Additional Info: Home INR Program: Patient performs routine INRs weekly on Wednesday Next routine monthly appointment for INR review (date/time): 09/06/23. Patient will initiate contact to Anticoagulation Service [...] in 7 days per consult with Anticoagulation [facility]. Provider consulted: Abigail Del Rio-Anticoagulation [facility] Pt is on injectable anticoagulant: No. Plan used: Consult. See Anticoagulation Track Calendar for dosing and plan details. Anticoagulation Visit Summary: Patient repeats back dosing instructions, date of next INR, and has no further questions at this time. and Patient provided with warfarin dosing and next INR appointment via Patient Online Services. Patient encouraged to call or send message back if any questions. Total time spent with patient: N/A documented in this encounter Plan of Treatment Upcoming Encounters Date Type Department Care Team (Latest Contact Info) Description 10/04/2023 9:15 AM CDT Anticoagulation Visit Department of Anticoagulation in [place], [place] [address] [place] [address] Willow Guajardo M.D. [address] [place] [phone] 10/05/2023 8:45 AM CDT Clinical Support Department of Rehabilitation Services in [address] [phone] Symone Trujillo APRN, C.NRobyn, D.N.P. [address] [place] [phone] Sonali Morrison P.TClarence 10/25/2023 8:30 AM CDT Clinical Support Department of Rehabilitation Services in [address] [phone] Symone Trujillo APRN, C.NRobyn, D.N.P. [address] [place] [phone] Sonali Morrison P.TClarence 12/16/2023 10:00 AM CDT Appointment Department of Radiology in [address] [phone] Phani Cook M.D. [address] [place] [phone] Discharge Disposition: Home or Self Care 12/20/2023 1:45 PM CDT Office Visit Department of Cardiovascular Diseases in [address] [phone] Phani Cook M.D. [address] [place] [phone] Scheduled Referrals Name Type Priority Associated Diagnoses Order Schedule Anticoagulation nurse visit (clinic) Outpatient Referral Routine Expected: 09/06/2023, Expires: 11/08/2024 documented as of this encounter Procedures Procedure Name Priority Date/Time Associated Diagnosis Comments PROTHROMBIN TIME (PT), P Routine 08/09/2023 documented in this encounter Results * Prothrombin Time (PT) (08/09/2023) EXT INR 1.50 PATIENT PO INT OF CARE DEVICE Blood (Blood, Venous) 08/09/2023 Narrative Resulting Agency Comment HM Historical Provider LAB BLOOD ADD-ON PATIENT POINT OF CARE DEVICE documented in this encounter Visit Diagnoses Diagnosis Prosthesis Aortic Valve- Primary Instructor Adjunct Surgical Technician Anticoagulant Treatment [Z79.01] Monitoring For Therapeutic Drug Therapy [Z51.81] documented in this encounter Additional Health Concerns Assessment Noted Time PHQ-9 Depression Total Score: 2 02/24/20 18 2:31 PM WOOL HANDLER documented as of this encounter Care Teams Hadoop Administrator Relationship Specialty Start Date End Date Willow Guajardo M.D. [address] [place] [phone] PCP - General Family Medicine 03/28/[address] [address] 10/11/17 documented as of this encounter
--- OUTSIDE RECORDS SUMMARY | 2023-09-30 08:39 | XMS_ITS | Encounter Summary ---
Author Organization [facility] Address [address] [place] [address] Care Team Providers Care Hydroelectric Mechanic Name Role Phone Willow Guajardo M.D. Primary Care Provider [phone]- [phone] Reason for Referral * Outpatient (Routine) - Closed Specialty Diagnoses / Procedures Referred By Alexx espinoza Referred To Contact Willow Guzman M.D. [address] [place] [phone] [facility] Referral ID Status Reason Start Date Expiration Date Visits Re quested Visits Authorized [id number] Closed 07/26/2023 01/24/2025 1 1 Reason for Visit * Outpatient (Routine) - Closed Specialty Diagnoses / Procedures Referred By Contac t Referred To Contact Willow Guzman M.D. [phone] [place] [phone] [facility] Region Referral ID Status Reason Start Date Expiration Date Visits Re quested Visits Authorized [id number] Closed 07/19/2023 01/17/2025 1 1 Encounter Details Date Type Department Care Team (Latest Contact Info) Description 07/26/2023 10:00 AM CDT Anticoagulation Visit Department of Anticoagulation in [place], [place] [address] [place] [address] Willow Guajardo M.D. [address] [phone] Prosthesis Aortic Valve (Primary Dx); Longterm Anticoagulant Treatment [Z79.01]; Monitoring For Therapeutic Drug Therapy [Z51.81] Social History Tobacco Use Types Packs/Day Years Used Date Smoking Tobacco: Never Passive Smoke Exposure: Never Smokeless Tobacco: Never Alcohol Use Standard Drinks/Week Comments Not Currently 0 (1 standard drink = 0.6 oz pure alcohol) 1 drink approx every 2 weeks. [facility] [employer] Answer Date Recorded In the past 12 months has [facility] [employer], gas, oil, or water [employer] threatened to shut off services in your [...] How often do you attend chur or zoroastrian services? Patient declined 03/05/2022 Do you belong to any clubs o r organizations such as quaker groups, unions, fraternal or athletic groups, or [...] Answer Date Recorded PHQ-2 Score 0 11/18/2021 [facility] Occupat ional Health - Occupational [...] encounter Patient Instructions * Patient Instructions* Eleanor Naylor, RClarenceN. - 07/26/2023 10:00 AM CDT The day before your next [...] please call Primary Care Anticoagulation Program at [phone] from 7:30 am to 4:30 pm. Wednesday-Wednesday [...] if you start any herbal or other mqqo-zrd-qhjrilt product (check with your doctor, a nurse, [...] Progress Notes * Eleanor Naylor R.N. - 07/26/2023 10:00 AM CDT Warfarin Maintenance Nursing Protocol Goal [...] routine monthly appointment for INR review (date/time): 08/09/23. Patient will initiate contact to Anticoagulation Service if INR out of goal range on day of Home INR check OR if INR is higher or lower than last INR by 1 or more. Warfarin Management Screening Questionnaire completed. Continues to use APAP every 12 hrs. Pt stated she is doing well. Previous INR was therapeutic. Today???s INR is Therapeutic. Dosing and follow [...] in 7 days per consult with Anticoagulation [facility]. Provider consulted: Carly Sharp-Anticoagulation [facility] Pt is on injectable anticoagulant: No. [...] CDT Anticoagulation Visit Department of Anticoagulation in [place], [place] [address] [place] [address] Willow Guajardo M.D. [address] [place] [phone] 10/05/2023 8:45 AM CDT Clinical Support Department of Rehabilitation Services in [address] [phone] Symone Trujillo APRN, C.NRobyn, D.N.P. [address] [place] [phone] Sonali Morrison P.TClarence 10/25/2023 8:30 AM CDT Clinical Support Department of Rehabilitation Services in [address] [phone] Symone Trujillo APRN, C.NRobyn, D.N.P. [address] [place] [phone] Sonali Morrison P.TClarence 12/16/2023 10:00 AM CDT Appointment Department of Radiology in [address] [phone] Phani Cook M.D. [address] [place] [phone] Discharge Disposition: Home or Self Care 12/20/2023 1:45 PM CDT Office Visit Department of Cardiovascular Diseases in [address] [phone] Phani Cook M.D. [address] [place] [phone] Scheduled Referrals Name Type Priority Associated Diagnoses Order Schedule Anticoagulation nurse visit (clinic) Outpatient Referral Routine Expected: 08/09/2023, Expires: 10/25/2024 documented as of this encounter Procedures Procedure Name Priority Date/Time Associated Diagnosis Comments PROTHROMBIN TIME (PT), P Routine 07/26/2023 documented in this encounter Results * Prothrombin Time (PT) (07/26/2023) EXT INR 1.50 PATIENT PO INT OF CARE DEVICE Blood (Blood, Venous) 07/26/2023 Narrative Resulting Agency Comment HM Historical Provider LAB BLOOD ADD-ON PATIENT POINT OF CARE DEVICE documented in this encounter Visit Diagnoses Diagnosis Prosthesis Aortic Valve- Primary Longterm Anticoagulant Treatment [Z79.01] Monitoring For Therapeutic Drug Therapy [Z51.81] documented in this encounter Additional Health Concerns Assessment Noted Time PHQ-9 Depression Total Score: 2 02/24/20 18 2:31 PM FAMILY MEDICINE PHYSICIAN ASSISTANT documented as of this encounter Care Teams Hydroelectric Mechanic Relationship Specialty Start Date End Date Willow Guajardo M.D. [address] [place] [phone] PCP - General Family Medicine 03/28/[address] [address] 10/11/17 documented as of this encounter
--- OUTSIDE RECORDS SUMMARY | 2023-09-30 08:39 | XMS_ITS | Encounter Summary ---
Author Organization [facility] Address [address] [place] [address] Care Team Providers Care Physical Security Specialist Name Role Phone Willow Guajardo M.D. 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 [address] [phone] [facility] Region Referral ID Status Reason Start Date Expiration Date Visits Re quested Visits Authorized [id number] Closed 01/06/2021 01/06/2022 52 52 Encounter Details Date Type Department Care Team (Latest Contact Info) Description 08/03/2023 10:45 AM CDT Anticoagulation Visit Department of Anticoagulation in [place], [place] [address] [place] [address] Willow Guajardo M.D. [address] [phone] Fdc (Current) Anticoagulant Treatment; Monitoring For Therapeutic Drug Therapy; Prosthesis Aortic Valve Social History Tobacco Use Types Packs/Day Years Used Date Smoking Tobacco: Never Passive Smoke Exposure: Never Smokeless Tobacco: Never Alcohol Use Standard Drinks/Week Comments Not Currently 0 (1 standard drink = 0.6 oz pure alcohol) 1 drink approx every 2 weeks. [facility] Utilities Answer Date Recorded In the past 12 months has [employer], [employer], or water [employer] threatened to shut off services in your [...] How often do you attend chur or voodoo services? Patient declined 03/05/2022 Do you belong to any clubs o r organizations such as zoroastrian groups, unions, fraternal or athletic groups, or [...] Answer Date Recorded PHQ-2 Score 0 11/18/2021 [facility] of Occupat ional [facility] - Occupational Stress Questionnaire Answer Date [...] your living situation today? I have a [facility] place to live 07/14/2023 Education [...] this encounter Patient Instructions * Patient Instructions* Josselyn Tomlinson R.N. - 08/03/2023 10:45 AM CDT The day before your next [...] your anticoagulation team or seek emergency assistance. Your next call in date is 08/09/23 Please continue to test your INR weekly and contact the anticoagulation clinic on the day of testing if your INR falls outside of goal range or if your INR changes by1.0 or greater in a week. You will need to call the Anticoagulation Program for warfarin dosing at the scheduled time for your nurse visit, as indicated on your Patient Appointment Guide (PAG). To reschedule your appointment or for questions about your warfarin, please call Primary Care Anticoagulation Program at [phone] from 7:30 am to 4:30 pm. Wednesday-Wednesday [...] if you start any herbal or other klco-uui-sxaxydp product (check with your doctor, a nurse, or pharmacist). If you change your diet significantly. If you decide to stop or start using tobacco or alcohol. If you notice unusual bruising or bleeding. If you notice dark, tarry, or bright red stools or blood in your urine. If you have a painful and swollen calf. documented in this encounter Progress Notes * Josselyn Tomlinson R.N. - 08/03/2023 10:45 AM CDT Warfarin Maintenance Nursing Protocol Goal Range NON-STANDARD (version approved 04/2021) Visit Type: Telephone and Home/Self Test INR Primary reason for visit: Routine f/u OR f/u per previous visit recommendations and Home INR weeklyINR, out of range Information provided by:patient INR result: 1.4 on 08/01 Goal range: 1.5-2.0 Inclusion Criteria: All inclusion criteria met. Proceeded to exclusion criteria. Exclusion Criteria: Section 1: No Section 1 exclusion criteria, proceeded to Section 2. Section 2: No Section 2 exclusion criteria, proceeded to screening criteria. Screening Criteria: Patient has started, stopped, or has had a dose adjustment of medication: yes. Within last 4 weeks.Medication: Oxy was started on 07/27/23. Medication not on Appendix A. Proceeded to maintenance warfarin dosing and follow-up. Medication: Tylenol was started on currently taking 500 mg BID. Medication listed on Appendix A, continued with Appendix A for dosing and follow-up. Additional Info: Home INR Program: Patient performs routine INRs weekly on Wednesday Next routine monthly appointment for INR review (date/time): 08/10/23. Patient will initiate contact to Anticoagulation Service if INR out of goal range on day of Home INR check OR if INR is higher or lower than last INR by 1 or more. Pt has had recent hip surgery and states she stopped the Oxy on 07/26 and is currently taking Tylenol 500 mg BID. She is walking and eating well. Previous INR was therapeutic. Today???s INR is Subtherapeutic, Causes: Unknown. Dosing and follow up recommendation: Protocol dosing range for INR is 0.1 below goal range to 0.1 above goal range: INR 0.1 below goal range. No change in weekly dose. Currently bridging? no. Next INR in 2 weeks per positive screening criteria listed above. Additional dosing or follow-up information: Protocol completed. Per nursing judgment, provider consulted. Dosing per tracker. Next INR in 1 weeks per consult with Anticoagulation [facility]. Pt is on injectable anticoagulant: No. Plan [...] any questions. Total time spent with patient: 15 minutes documented in this encounter Plan of Treatment Upcoming Encounters Date Type Department Care Team (Latest Contact Info) Description 10/04/2023 9:15 AM CDT Anticoagulation Visit Department of Anticoagulation in [place] [address] [place] [address] Willow Guajardo M.D. [address] [place] [phone] 10/05/2023 8:45 AM CDT Clinical Support Department of Rehabilitation Services in [address] [phone] Symone Trujillo APRN, C.N.P., D.N.P. [address] [place] [phone] Sonali Morrison P.Mynor 10/25/2023 8:30 AM CDT Clinical Support Department of Rehabilitation Services in [address] [phone] Symone Trujillo APRN, C.N.P., D.N.P. [address] [place] [phone] Sonali Morrison P.T. 12/16/2023 10:00 AM CDT Appointment Department of Radiology in [address] [phone] Phani Cook M.D. [address] [place] [phone] Discharge Disposition: Home or Self Care 12/20/2023 1:45 PM CDT Office Visit Department of Cardiovascular Diseases in [address] [phone] Phani Cook M.D. 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 [address] [place] [phone] PCP - General Family Medicine 03/28/[address] [address] 10/11/17 documented as of this encounter
--- OUTSIDE RECORDS SUMMARY | 2023-09-30 08:39 | XMS_ITS | Encounter Summary ---
Author Organization [facility] Address [address] [place] [address] Care Team Providers Care Labor Relations Or Personnel Negotiator Name Role Phone Willow Guajardo M.D. 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 [address] [phone] [facility] Region Referral ID Status Reason Start Date Expiration Date Visits Re quested Visits Authorized [id number] Closed 01/06/2021 01/06/2022 52 52 Encounter Details Date Type Department Care Team (Latest Contact Info) Description 08/16/2023 10:45 AM CDT Anticoagulation Visit Department of Anticoagulation in [place], [place] [address] [place] [address] Willow Guajardo M.D. [address] [phone] Retirement (Current) Anticoagulant Treatment; Monitoring For Therapeutic Drug Therapy; Prosthesis Aortic Valve Social History Tobacco Use Types Packs/Day Years Used Date Smoking Tobacco: Never Passive Smoke Exposure: Never Smokeless Tobacco: Never Alcohol Use Standard Drinks/Week Comments Not Currently 0 (1 standard drink = 0.6 oz pure alcohol) 1 drink approx every 2 weeks. [facility] Utilities Answer Date Recorded In the past 12 months has [employer], [employer], or water [employer] threatened to shut off services in your [...] How often do you attend chur or cheondoism services? Patient declined 03/05/2022 Do you belong to any clubs o r organizations such as baptism groups, unions, fraternal or athletic groups, or [...] Answer Date Recorded PHQ-2 Score 0 11/18/2021 [facility] of Occupat ional [facility] - Occupational Stress Questionnaire Answer Date [...] your living situation today? I have a [facility] place to live 07/14/2023 Education Answer [...] this encounter Patient Instructions * Patient Instructions* Yesi Johnson R.N. - 08/16/2023 10:45 AM CDT The day before your [...] please call Primary Care Anticoagulation Program at [phone] from 7:30 am to 4:30 pm. Wednesday-Wednesday [...] if you start any herbal or other ximq-ybi-gyybdog product (check with your doctor, a nurse, or pharmacist). If you change your diet significantly. If you decide to stop or start using tobacco or alcohol. If you notice unusual bruising or bleeding. If you notice dark, tarry, or bright red stools or blood in your urine. If you have a painful and swollen calf. documented in this encounter Progress Notes * Yesi Johnson R.N. - 08/16/2023 10:45 AM CDT Warfarin Maintenance Nursing Protocol Goal Range 2.0-3.0 (version approved 04/2021) Visit Type: Home/Self Test INR Primary reason for visit: Home INR weekly INR, out of range Information provided by:patient INR result: 3.2 Goal range: 2.0-3.0 Inclusion Criteria: All inclusion criteria met. Proceeded to exclusion criteria. Exclusion Criteria: Section 1: No Section 1 exclusion criteria, proceeded to Section 2. Section 2: No Section 2 exclusion criteria, proceeded to screening criteria. Screening Criteria: Current INR value has changed by greater than or equal to 1 since last INR check: yes. Dose change was made within last 7 days. Protocol does not apply. Provider input required. Patient is currently enrolled in Home INR [...] by 1 or more. Previous INR was therapeutic. Today???s INR is Supratherapeutic, Causes: increased dose . Dosing and follow up recommendation: Protocol does not apply based on positive screening criteria indicated above stating consult required. Consulted Anticoagulation [facility] for plan. Currently bridging: no. INR is therapeutic/supratherapeutic. Additional dosing or follow-up information: None. Pt is on injectable anticoagulant: No. Plan used: Consult. See Anticoagulation Track Calendar for dosing and plan details. Anticoagulation Visit Summary: Patient repeats back dosing instructions, date of next INR, and has no further questions at this time. Total time spent with patient: 15 minutes documented in this encounter Plan of Treatment Upcoming Encounters Date Type Department Care Team (Latest Contact Info) Description 10/04/2023 9:15 AM CDT Anticoagulation Visit Department of Anticoagulation in [address] [phone] Willow Guajardo M.D. [address] [place] [phone] 10/05/2023 8:45 AM CDT Clinical Support Department of Rehabilitation Services in [address] [phone] Symone Trujillo APRN, C.N.P., D.N.P. [address] [place] [phone] Sonali Morrison, P.TClarence 10/25/2023 8:30 AM CDT Clinical Support Department of Rehabilitation Services in [address] [phone] Symone Trujillo APRN, C.N.P., D.N.P. [address] [place] [phone] Sonali Morrison P.T. 12/16/2023 10:00 AM CDT Appointment Department of Radiology in [address] [phone] Phani Cook M.D. [address] [place] [phone] Discharge Disposition: Home or Self Care 12/20/2023 1:45 PM CDT Office Visit Department of Cardiovascular Diseases in [address] [phone] Phani Cook M.D. [address] [place] [phone] documented as of this encounter Procedures Procedure Name Priority Date/Time Associated Diagnosis Comments PROTHROMBIN TIME (PT), P Routine 08/16/2023 documented in this encounter Results * Prothrombin Time (PT) (08/16/2023) EXT INR 3.20 PATIENT PO INT OF CARE DEVICE Blood (Blood, Venous) Historical Provider LAB BLOOD ADD-ON PATIENT POINT OF CARE DEVICE documented in this encounter Visit Diagnoses Diagnosis Retirement (Current) Anticoagulant Treatment Monitoring For Therapeutic Drug Therapy Prosthesis Aortic Valve documented in this encounter Additional Health Concerns Assessment Noted Time PHQ-9 Depression Total Score: 2 02/24/20 18 2:31 PM 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 [address] [place] [phone] PCP - General Family Medicine 03/28/[address] [place] [address] 10/11/17 documented as of this encounter
--- OUTSIDE RECORDS SUMMARY | 2023-09-30 08:39 | XMS_ITS | Encounter Summary ---
Author Organization [facility] Address [address] [place] [address] Care Team Providers Care Business Systems Technician Name Role Phone Willow Guajardo M.D. Primary Care Provider Reason for Referral * Outpatient (Routine) - Closed Specialty Diagnoses / Procedures Referred By Contac t Referred To Contact Diagnoses Screening Osteoporosis Procedures BMD Bone Density Spine Hips Louann Govea C.N.P. [address] [place] [phone] [facility] Region Referral ID Status Reason Start Date Expiration Date Visits Re quested Visits Authorized [id number] Closed 07/27/2023 07/26/2024 1 1 Reason for Visit * Outpatient (Routine) - Closed Specialty Diagnoses / Procedures Referred By Contac t Referred To Contact Diagnoses Screening Osteoporosis Procedures BMD Bone Density Spine Hips Louann Govea, C.N.P. [address] [place] [address] [facility] Region Referral ID Status Reason Start Date Expiration Date Visits Re quested Visits Authorized [id number] Closed 07/27/2023 07/26/2024 1 1 Encounter Details Date Type Department Care Team (Late st Contact Info) Description 08/04/2023 8:34 AM CDT - 08/04/2023 11:59 PM CDT Hospital Encounter Department of Radiology in [address] [phone] Louann Govea C.N.P. [address] [place] [phone] Screening Osteoporosis Discharge Disposition: Home or Self Care Social History Tobacco Use Types Packs/Day Years Used Date Smoking Tobacco: Never Passive Smoke Exposure: Never Smokeless Tobacco: Never Alcohol Use Standard Drinks/Week Comments Not Currently 0 (1 standard drink = 0.6 oz pure alcohol) 1 drink approx every 2 weeks. [facility] [employer] Answer Date Recorded In the past 12 months has [employer], gas, oil, or water [employer] threatened to shut off services in your [...] any clubs o r organizations such as jainism groups, unions, fraternal or athletic groups, or [...] Answer Date Recorded PHQ-2 Score 0 11/18/2021 [facility] of Occupat ional Health - Occupational [...] your living situation today? I have a [facility] place to live 07/14/2023 Education Answer [...] AM CDT documented as of this encounter Medications at Time of Discharge Medication Sig Dispensed Refills Start Date End Date acetaminophen (TYLENOL) 500 mg tablet Take 2 tablets (1,000 mg total) by mouth every 6 (six) hours. 07/15/2023 aspirin 81 mg chewable tablet Chew 1 tablet (81 mg total) daily. 10/12/2017 azithromycin (ZITHROMAX) 500 mg tablet Take 500 mg by mouth as needed (as needed). Prior to dental procedures. 08/04/2022 B complex-vitamin (SUPER B-50) capsule Take 1 capsule by mouth daily. Liquid form. calcium carbonate 1,250 mg (500 mg calcium) tablet Take 500 mg of calcium by mouth every other day. cholecalciferol (VITAMIN D3) 125 mcg (5,000 Unit) tablet Take 1 tablet by mouth every other day. 06/14/2020 lancetsIndications:M onitoring For Therapeutic Drug Therapy,Prosthesis Aortic Valve For use with home INR monitoring device. Use to test INR weekly and as needed per direction of the INR Clinic 100 each 04/01/2020 multivitamin capsule Take 1 capsule by mouth daily. omega-3 fatty acids-fish oil 300-1,000 mg capsule Take 2 g by mouth every other day. prothrombin time stripIndications:Mon itoring For Therapeutic Drug Therapy,Prosthesis Aortic Valve Use to test INR weekly and as needed per direction of the INR Clinic 400 strip 1 02/03/2022 prothrombin time/INR miscIndications:Senior Care (Current) Anticoagulant Treatment,Monitoring For Therapeutic Drug Therapy,Prosthesis Aortic Valve Pt scheduled for Home monitoring education 02/21/18. 1 each 02/14/2018 warfarin (JANTOVEN) 2 mg tablet Please take as directed by your Anticoagulation Clinic. 145 tablet 3 11/17/2022 zolpidem (AMBIEN) 10 mg tablet Take 0.5 tablets (5 mg total) by mouth at bedtime as needed for sleep. 07/15/2023 oxyCODONE (ROXICODONE) 5 mg immediate release tabletIndications:Pr olonged Acute Pain/Traumatic Injury Take 1-2 tablets (5-10 mg total) by mouth every 4 (four) hours as needed for pain Indication: Prolonged Acute Pain/Traumatic Injury. 40 tablet 07/20/2023 09/07/2023 sennosides-docusate sodium (SENOKOT-S) 8.6-50 mg per tablet Take 1 tablet by mouth 2 (two) times a day. 100 tablet 07/15/2023 09/07/2023 zolpidem (AMBIEN) 10 mg tablet Take 1 tablet (10 mg total) by mouth at bedtime as needed for insomnia. 90 tablet 1 02/15/2023 09/29/2023 documented as of this encounter Plan of Treatment Upcoming Encounters Date Type Department Care Team (Latest Contact Info) Description 10/04/2023 9:15 AM CDT Anticoagulation Visit Department of Anticoagulation in [place], [place] [address] [place] [address] Willow Guajardo M.D. [address] [place] [phone] 10/05/2023 8:45 AM CDT Clinical Support Department of Rehabilitation Services in [address] [phone] Symone Trujillo APRN, C.N.PClarence, D.N.P. [address] [place] [phone] Sonali Morrison P.T. 10/25/2023 8:30 AM CDT Clinical Support Department of Rehabilitation Services in [address] [phone] Symone Trujillo APRN, C.NRobyn, D.N.P. [address] [place] [phone] Sonali Morrison P.T. 12/16/2023 10:00 AM CDT Appointment Department of Radiology in [address] [phone] Phani Cook M.D. [address] [place] [phone] Discharge Disposition: Home or Self Care 12/20/2023 1:45 PM CDT Office Visit Department of Cardiovascular Diseases in [address] [phone] Phani Cook M.D. [address] [place] [phone] documented as of this encounter Procedures Procedure Name Priority Date/Time Associated Diagnosis Comments BMD BONE DENSITY SPINE HIPS RAD - Routine (most inpatients and all outpatients) 08/04/2023 9:46 AM CDT Screening Osteoporosis documented in this encounter Results * BMD Bone Density Spine Hips (08/04/2023 9:46 AM CDT) Anatomical Region Laterality Modality Hip, Lumbar Spine, Nuclear M edicine RST LOS, Musculoskeletal ARZ LOS, Muskuloskeletal FLA LOS N/A Radio graphic Imaging Impressions 08/04/2023 9:59 AM CDT Low bone density (Osteopenia) AP Spine (region: L1-L4) Narrative 08/04/2023 9:59 AM CDT EXAM: ??BMD BONE DENSITY SPINE HIPS Bone Mineral Density (BMD) analysis performed on [employer] with serial number [id number]. ? FINDINGS: Left Hip: Femur Neck: BMD [...] BMD measurement. Procedure Note Deandre Chou M.B., Estelita Kearney - 08/04/2023 EXAM: BMD BONE DENSITY SPINE HIPS Bone Mineral Density (BMD) analysis performed on [employer] serial number [id number]. FINDINGS: Left Hip: Femur Neck: BMD = [...] report, including images and graphs,is available in [employer]. In the absence of other causes of [...] density (Osteopenia) AP Spine (region: L1-L4) Louann PHAN DXA PROCED URES documented in this encounter Visit Diagnoses Diagnosis Screening Osteoporosis documented in this encounter Additional Health Concerns Assessment Noted Time PHQ-9 Depression Total Score: 2 02/24/20 18 2:31 PM EDUCATIONAL PARAPROFESSIONAL documented as of this encounter Care Teams Business Systems Technician Relationship Specialty Start Date End Date Willow Guajardo M.D. [address] [place] [phone] PCP - General Family Medicine 03/28/[address] [place] [address] 10/11/17 documented as of this encounter
--- OUTSIDE RECORDS SUMMARY | 2023-09-30 08:39 | XMS_ITS | Encounter Summary ---
Author Organization [facility] Address [address] [place] [address] Care Team Providers Care Rn On Site Name Role Phone Willow Guajardo M.D. Primary Care Provider Reason for Visit * Physical Therapy (Routine) - Authorized Specialty Diagnoses / Procedures Referred By Alexx espinoza Referred To Contact Diagnoses Aftercare Total Hip Arthroplasty Procedures PT Ongoing treatment Symone Trujillo APRN, C.N.P., D.N.P. [address] [place] [phone] [facility] Region Referral ID Status Reason Start Date Expiration Date V isits Requested Visits Authorized [id number] Authorized 07/21/2023 03/07/2024 99 [phone] Encounter Details Date Type Department Care Team (Latest Contact Info) Description 08/04/2023 8:45 AM CDT Clinical Support Department of Rehabilitation Services in [address] [phone] Symone Trujillo APRN, C.N.P., D.N.P. [address] [place] [phone] Sonali Morrison P.T. Aftercare Total Hip Arthroplasty Social History Tobacco Use Types Packs/Day Years Used Date Smoking Tobacco: Never Passive Smoke Exposure: Never Smokeless Tobacco: Never Alcohol Use Standard Drinks/Week Comments Not Currently 0 (1 standard drink = 0.6 oz pure alcohol) 1 drink approx every 2 weeks. [facility] [employer] Answer Date Recorded In the past 12 months has e [employer], gas, oil, or water [employer] threatened to shut off services in your [...] How often do you attend chur or muslim services? Patient declined 03/05/2022 Do you belong to any clubs o r organizations such as christianity groups, unions, fraternal or athletic groups, or [...] Answer Date Recorded PHQ-2 Score 0 11/18/2021 [facility] - [...] Progress Notes * Sonali Morrison P.T. - 08/04/2023 8:45 AM CDT Physical Therapy Outpatient Treatment Note SUBJECTIVE Patient's Name: Meeta Urbina Patricia Referring Provider: Symone Trujillo APRN, C.N.* Visit Diagnosis: 1. Aftercare Total Hip Arthroplasty Payor: [facility] / Plan: [facility] / Product Type: Medicaid HMO / No data recorded Epic Visit Count: 3 Patient comments: pt presents to PT doing well today. Reports that she was able to tolerate walkingaround [employer] with holding onto the shopping cart and it went well, hasn't been using her SEC as often OBJECTIVE Pain: 2/10 on average Ortho Exam TREATMENT Treatment today consisted of: Therapeutic Exercise: SciFit x 7 min with seat high to avoid a greater hip angle Standing exs holding onto parallel bars: Ambulation with B UE hold working on even gait pattern and light hold x 50 feet *mini squat x 15 - tactile cues for form needed *toe raises standing erect x 20 *heel raises at 45 degree angle x 20 *standing glute squeeze Seated heel slide x 20 reps Supine ankle pumps x 20 Supine glute sets x 20 *Heel slide with assist x 15 reps - [...] with Patient Therapeutic Interventions Therapeutic Exercise (min): 42 min Time Tracking Total Timed Units (min): 42 min Total Treatment Time (min): 42 min documented in this encounter Plan of Treatment Upcoming Encounters Date Type Department Care Team (Latest Contact Info) Description 10/04/2023 9:15 AM CDT Anticoagulation Visit Department of Anticoagulation in [place] [address] [place] [phone] Willow Guajardo M.D. [address] [place] [phone] 10/05/2023 8:45 AM CDT Clinical Support Department of Rehabilitation Services in [address] [phone] Symone Trujillo APRN, C.N.P., D.N.P. [address] [place] [phone] Sonali Morrison PClarenceTClarence 10/25/2023 8:30 AM CDT Clinical Support Department of Rehabilitation Services in [address] [phone] Symone Trujillo APRN, C.N.P., D.N.P. [address] [place] [phone] Sonali Morrison P.T. 12/16/2023 10:00 AM CDT Appointment Department of Radiology in [address] [phone] Phani Cook M.D. [address] [place] [phone] Discharge Disposition: Home or Self Care 12/20/2023 1:45 PM CDT Office Visit Department of Cardiovascular Diseases in [address] [phone] Phani Cook M.D. 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 [address] [place] [phone] PCP - General Family Medicine 03/28/[address] [address] 10/11/17 documented as of this encounter
--- OUTSIDE RECORDS SUMMARY | 2023-09-30 08:39 | XMS_ITS | Encounter Summary ---
Author Organization [facility] Address [address] [place] [address] Care Team Providers Care Html Developer Name Role Phone Willow Guajardo M.D. Primary Care Provider [phone] Reason for Visit * Physical Therapy (Routine) - Authorized Specialty Diagnoses / Procedures Referred By Alexx espinoza Referred To Contact Diagnoses Aftercare Total Hip Arthroplasty Procedures PT Ongoing treatment Symone Trujillo APRN, C.N.P., D.N.P. [address] [place] [phone] [facility] Region Referral ID Status Reason Start Date Expiration Date V isits Requested Visits Authorized [id number] Authorized 07/21/2023 03/07/2024 99 99 Encounter Details Date Type Department Care Team (Latest Contact Info) Description 09/01/2023 12:30 PM CDT Clinical Support Department of Rehabilitation Services in [address] [phone] Symone Trujillo APRN, C.N.P., D.N.P. [address] [place] [phone] Sonali Morrison P.T. Aftercare Total Hip Arthroplasty Social History Tobacco Use Types Packs/Day Years Used Date Smoking Tobacco: Never Passive Smoke Exposure: Never Smokeless Tobacco: Never Alcohol Use Standard Drinks/Week Comments Not Currently 0 (1 standard drink = 0.6 oz pure alcohol) 1 drink approx every 2 weeks. [facility] [employer] Answer Date Recorded In the past 12 months has e [employer], gas, oil, or water [employer] threatened to shut off services in your [...] How often do you attend chur or rastafarian services? Patient declined 03/05/2022 Do you belong to any clubs o r organizations such as methodist groups, unions, fraternal or athletic groups, or [...] Answer Date Recorded PHQ-2 Score 0 11/18/2021 [facility] of Occupat ional Health - Occupational [...] Progress Notes * Sonali Morrison PClarenceT. - 09/01/2023 12:30 PM CDT Physical Therapy Outpatient Treatment Note SUBJECTIVE Patient's Name: Meeta Urbina Patricia Referring Provider: Symone Trujillo APRN, C.N.* Visit Diagnosis: 1. Aftercare Total Hip Arthroplasty Payor: [facility] / Plan: [facility] / Product Type: Medicaid HMO / No data recorded Epic Visit Count: 7 Patient comments: pt presents to PT doing well today. Continues to have improvements in her gait and walking without an AD is going well also driving more often is going well too. OBJECTIVE Pain: 03/17 on average Ortho Exam Tenderness right lateral hip - diminished today TREATMENT Treatment today consisted of: Therapeutic Exercise: SciFit x 10 min level #1 with seat high to avoid a greater hip angle - no pain with this today - Tactile cues to keep knee in line with hip during *heel cord stretch off edge of bottom stair x 45 sec *Standing hip flexor stretch B on floor and with foot on 2nd step of stairway 30'' each Standing exs holding onto parallel bars: Ambulation [...] ea *standing hip extension x 10 ea -- ADDED ORANGE band *NBOS on foam pad no UE support [...] trail this exs again until next week Reviewed: supine hip ER into orange band with legs straight and band around feet x 20 reps Home Exercise Program/Education: above routine daily and walking frequently during the day Patient reports good HEP compliance. MANUAL: STM right hip musculature around surgical incision and superior IT band, pt in left sidelying with 2 pillows between knees and this was very comfortable Assessment Clinical Impression: Patient presents to physical [...] with Patient Therapeutic Interventions Manual Therapy (min): 15 min Therapeutic Exercise (min): 30 min Time Tracking Total Timed Units (min): 45 min Total Treatment Time (min): 45 min documented in this encounter Plan of Treatment Upcoming Encounters Date Type Department Care Team (Latest Contact Info) Description 10/04/2023 9:15 AM CDT Anticoagulation Visit Department of Anticoagulation in [place], [place] [address] [place] [phone] Willow Guajardo M.D. [address] [place] [phone] 10/05/2023 8:45 AM CDT Clinical Support Department of Rehabilitation Services in [address] [phone] Symone Trujillo APRN, C.N.P., D.N.P. [address] [place] [phone] Sonali Morrison, P.T. 10/25/2023 8:30 AM CDT Clinical Support Department of Rehabilitation Services in [address] [phone] Symone Trujillo APRN, C.N.P., D.N.P. [address] [place] [phone] Sonali Morrison, P.T. 12/16/2023 10:00 AM CDT Appointment Department of Radiology in [address] [phone] Phani Cook M.D. [address] [place] [phone] Discharge Disposition: Home or Self Care 12/20/2023 1:45 PM CDT Office Visit Department of Cardiovascular Diseases in [address] [phone] Phani Cook M.D. [address] [place] [phone] documented as of this encounter Visit Diagnoses Diagnosis Aftercare Total Hip Arthroplasty documented in this encounter Additional Health Concerns Assessment Noted Time PHQ-9 Depression Total Score: 2 02/24/20 18 2:31 PM AUTOMATION APPLICATION ENGINEER documented as of this encounter Care Teams Html Developer Relationship Specialty Start Date End Date Willow Guajardo M.D. [address] [place] [phone] PCP - General Family Medicine 03/28/[address] [address] 10/11/17 documented as of this encounter
--- OUTSIDE RECORDS SUMMARY | 2023-09-30 08:39 | XMS_ITS | Encounter Summary ---
Author Organization [facility] Address [address] [place] [address] Care Team Providers Care Advertisement Distributor Name Role Phone Willow Guajardo M.D. Primary Care Provider [phone] Reason for Visit * Physical Therapy (Routine) - Authorized Specialty Diagnoses / Procedures Referred By Alexx espinoza Referred To Contact Diagnoses Aftercare Total Hip Arthroplasty Procedures PT Ongoing treatment Symone Trujillo APRN, C.N.P., D.N.P. [address] [place] [phone] [facility] Region Referral ID Status Reason Start Date Expiration Date V isits Requested Visits Authorized [id number] Authorized 07/21/2023 03/07/2024 99 99 Encounter Details Date Type Department Care Team (Latest Contact Info) Description 08/25/2023 12:30 PM CDT Clinical Support Department of Rehabilitation Services in [address] [phone] Symone Trujillo APRN, C.N.P., D.N.P. [address] [place] [phone] Sonali Morrison P.T. Aftercare Total Hip Arthroplasty Social History Tobacco Use Types Packs/Day Years Used Date Smoking Tobacco: Never Passive Smoke Exposure: Never Smokeless Tobacco: Never Alcohol Use Standard Drinks/Week Comments Not Currently 0 (1 standard drink = 0.6 oz pure alcohol) 1 drink approx every 2 weeks. [facility] [employer] Answer Date Recorded In the past 12 months has e [employer], gas, oil, or water [employer] threatened to shut off services in your [...] How often do you attend chur or mormon services? Patient declined 03/05/2022 Do you belong to any clubs o r organizations such as confucianism groups, unions, fraternal or athletic groups, or [...] Answer Date Recorded PHQ-2 Score 0 11/18/2021 [facility]at ional Health - [...] Progress Notes * Sonali Morrison PClarenceT. - 08/25/2023 12:30 PM CDT Physical Therapy Outpatient Treatment Note SUBJECTIVE Patient's Name: Meeta Urbina Patricia Referring Provider: Symone Trujillo APRN, C.N.* Visit Diagnosis: 1. Aftercare Total Hip Arthroplasty Payor: [facility] / Plan: [facility] / Product Type: Medicaid HMO / No data recorded Epic Visit Count: 6 Patient comments: pt presents to PT doing well today. States she has been able to drive with success and feels good control when using the gas and break pedal. Feels like when she is tired that her right leg will during in during gait and wants to look at that today. OBJECTIVE Pain: 1/10 on average Ortho Exam [...] trail this exs again until next week *ADDED: supine hip ER into orange band with [...] CDT Anticoagulation Visit Department of Anticoagulation in [place], [place] [address] [place] [phone] Willow Guajardo M.D. [address] [place] [phone] 10/05/2023 8:45 AM CDT Clinical Support Department of Rehabilitation Services in [address] [phone] Symone Trujillo APRN, C.N.P., D.N.P. [address] [place] [phone] Sonali Morrison, P.T. 10/25/2023 8:30 AM CDT Clinical Support Department of Rehabilitation Services in [address] [phone] Symone Trujillo APRN, C.N.P., D.N.P. [address] [place] [phone] Sonali Morrison, P.T. 12/16/2023 10:00 AM CDT Appointment Department of Radiology in [address] [phone] Phani Cook M.D. [address] [place] [phone] Discharge Disposition: Home or Self Care 12/20/2023 1:45 PM CDT Office Visit Department of Cardiovascular Diseases in [address] [phone] Phani Cook M.D. 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 [address] [place] [phone] PCP - General Family Medicine 03/28/[address] [address] 10/11/17 documented as of this encounter
--- OUTSIDE RECORDS SUMMARY | 2023-09-30 08:39 | XMS_ITS | Encounter Summary ---
Author Organization [facility] Address [address] [place] [address] Care Team Providers Care Diagnostic Imaging Manager Name Role Phone Willow Guajardo M.D. Primary Care Provider Reason for Referral * Physical Therapy (Routine) - Authorized Specialty Diagnoses / Procedures Referred By Contac t Referred To Contact Diagnoses Aftercare Total Hip Arthroplasty Procedures PT Ongoing treatment Symone Trujillo APRN, C.N.P., D.N.P. [address] [place] [phone] [facility] Region Referral ID Status Reason Start Date Expiration Date V isits Requested Visits Authorized [id number] Authorized 07/21/2023 03/07/2024 99 99 Reason for Visit * Physical Therapy (Routine) - Closed Specialty Diagnoses / Procedures Referred By Contac t Referred To Contact Diagnoses Pain Hip Right Procedures PT Evaluate and treat Symone Trujillo APRN, C.N.PClarence, D.N.P. [address] [place] [phone] [facility] Region Referral ID Status Reason Start Date Expiration Date Visits Re quested Visits Authorized [id number] Closed 05/03/2023 05/02/2024 1 1 Encounter Details Date Type Department Care Team (Latest Contact Info) Description 07/21/2023 8:45 AM CDT Comprehensive Visit Department of Rehabilitation Services in [address] [phone] Symone Trujillo APRN, C.N.Jigar., D.N.P. [address] [place] [phone] Sonali Morrison P.T. Aftercare Total Hip Arthroplasty (Primary Dx); Pain Hip Right Social History Tobacco Use Types Packs/Day Years Used Date Smoking Tobacco: Never Passive Smoke Exposure: Never Smokeless Tobacco: Never Alcohol Use Standard Drinks/Week Comments Not Currently 0 (1 standard drink = 0.6 oz pure alcohol) 1 drink approx every 2 weeks. [facility] Utilities Answer Date Recorded In the past 12 months has [facility] [employer], gas, oil, or water [employer] threatened to shut off services in your [...] How often do you attend chur or alevism services? Patient declined 03/05/2022 Do you belong to any clubs o r organizations such as muslim groups, unions, fraternal or athletic groups, or [...] Date Recorded PHQ-2 Score 0 11/18/2021 [facility] Answer Date [...] living situation today? I have a [facility] place to live 07/14/2023 Education [...] AM CDT documented as of this encounter Consult Notes * Sonali Morrison PClarenceT. - 07/21/2023 8:45 AM CDT Physical Therapy Outpatient Evaluation/Treatment SUBJECTIVE Patient's Name: Meeta Gomez Referring Provider: Symone Trujillo APRN, CClarenceNClarence* Visit Diagnosis: 1. Aftercare Total Hip Arthroplasty 2. Pain Hip Right Reason for Referral: PT Eval and Treat - Right KRISTINE - Outpatient Onset Date: 07/14/23 Payor: [facility] / Plan: [facility] / Product Type: Medicaid HMO / [facility] Visit Count: 1 PERTINENT MEDICAL / SURGICAL HISTORY: Patient Active Problem List Diagnosis Migraine Headache Osteoarthritis Allergy Penicillin Antibiotic Personal History Pain Shoulder Right Pelvic Joint Disorder Right Pain Joint Ankle Left Fibroid Uterus Submucous Insufficiency Convergence Constipation Stenosis Regurgitation Mixed Mitral Aortic Prosthesis Aortic Valve 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 Anticoagulant Treatment [Z79.01] Monitoring For Therapeutic Drug Therapy [Z51.81] Pain Hip Left Allergy Seasonal Replacement Aortic Valve Tissue Anisocoria Dizziness Headache Unspecified Infertility Female Murmur Heart Murmur Systolic Prosthesis Heart Valve Sacrococcygeal Disorders Not Elsewhere Classified Urticaria Primary Osteoarthritis Hip Right Past Surgical History: Procedure Laterality Date ARTHROSCOPIC KNEE OPERATION LASER ASSISTED IN SITU KERATOMILEUSIS N/A 2009 LASIK REPLACEMENT AORTIC VALVE N/A 10/07/2017 Procedure: REPLACEMENT AORTIC VALVE - On-X; Surgeon: Cole Theodore M.D.; Location: [facility] OR ROBOTIC-ASSISTED HIP TOTAL ARTHROPLASTY Right 07/14/2023 Procedure: ROBOTIC-ASSISTED HIP TOTAL ARTHROPLASTY; Surgeon: John Prater M.D.; Location: [facility] OR TONSILLECTOMY N/A 1997 Tonsillectomy TONSILLECTOMY 1999 Precautions Weight Bearing Status: Weightbearing as tolerated on right lower extremity Other Precautions: Posterior hip precautions x12 weeks Patient presents to outpatient physical therapy for evaluation of symptoms including: S/P RIGHT KRISTINE on 07/14/23 Overall patient reports status is improving. 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 Family/Caregiver Present: No Patient goals:resume PLOF walking, working, being able to lift weights Patient Comments: pt reports the surgery seemed to go very well overall, reports she can already tell when up and walking her hip does not hurt like it used to Precautions Weight Bearing Status: Weightbearing as tolerated on right lower extremity Other Precautions: Posterior hip precautions x12 weeks OBJECTIVE REVIEW OF SYSTEMS PHYSICAL EXAM Pain: right hip 07/15 Orthopedic Physical Examination Pelvis-Hip Examination Inspection -- Additional inspection details: Removed bandage from right hip incisions, no drainage and stichesin place healing well, applied bandage over for patient to change out daily. No s/s of any infection. Limited lumbar spine screen: : WNL Lumbar AROM and pain free Hip range of motion Left normal active and passive range of motion -- Additional range of motion detail: Right hip n/t due to post surgical Hip girdle strength Left hip normal strength exam. Leg-Knee examination Hip screen Left hip screen normal (any exceptions noted here) TREATMENT Treatment today consisted of: Therapeutic Functional Activity: Reviewed posterior hip precautions - (see below HEP section) with patient . Edu on standing and performing short walks every 1.5 - 2 hours daily for improved circulation Home Exercise Program/Education: Aps, glute sets and walking at this time General Posterior hip precautions: Hip flexion: Do not bend your hip more than 90 degrees Hip abduction: Do not abduct your hip past neutral Hip rotation: Do not internally rotate your hip Sitting: Do not sit for long periods of time Leg position: Do not cross your legs or feet, or let your operated leg cross the midline Twisting: Do not twist your upper body when standing, or twist your leg inward Sleeping: Do not roll or lie on your unoperated side, or sleep on your back Assessment Clinical Impression: Patient presents to physical therapy with signs and symptoms consistent with s/p right KRISTINE on 07/14/23. Impairments: decreased ROM and strength post surgically Functional deficits: limitations in gait distances, transfer difficulty, standing tolerance, assistance with ADLs and unable to currently drive Rehab Potential: Patient has Good potential to achieve established physical therapy goals within the time frame outlined below, provided active participation in the physical therapy treatment plan and home program. Comorbid Conditions: Arthritis, Cardiopulmonary disease Personal Factors: Needs assistive device, Occupational risk factors Clinical Presentation: Stable Examination elements: 3 Clinical Decision Making: Moderate complexity clinical decision making Discharge Therapy Needs - PT: Ongoing skilled physical therapy Equipment Recommended - PT: Front-wheeled walker Functional Goals and Timeframes: PT Outpatient Goals PT Goal #1: Patient will be able [...] PLOF. PT Goal #4 Date: 10/06/23 Plan Patient was educated regarding evaluative findings, diagnosis, prognosis, potential risks and benefits of rehabilitation interventions. A collaborative effort was used to establish goals and plan of care. The patient was informed of the right to make decisions regarding care, including refusal of examination or treatment or selection of services from another provider if desired. The treatment plan may be progressed or modified based upon the patient's response to treatment. Physical Therapy Attestation Statement: Patient agrees with the plan of care and goals. Treatment Plan: Plan: Plan of care initiated PT Plan Comments: see below Start of Plan of Care: 07/21/2023 Number of Visits:16 visits PT Duration: 90 days PT Frequency: 1-2 x/ day Treatment interventions may include: Treatment/Interventions: Therapeutic exercise, Therapeutic functional activity, Gait training, Self-care/home management, Neuromuscular re-education, Manual therapy, Therapeutic modalities as needed Plan for next session: con't per s/p KRISTINE pathway Time Spent with Patient Evaluations PT Eval - Mod Complexity: 20 min Therapeutic Interventions Therapeutic Activity (min): 20 min Time Tracking Total Timed Units (min): 20 min Total Treatment Time (min): 40 min documented in this encounter Plan of Treatment Upcoming Encounters Date Type Department Care Team (Latest Contact Info) Description 10/04/2023 9:15 AM CDT Anticoagulation Visit Department of Anticoagulation in [address] [phone] Willow Guajardo M.D. [address] [place] [phone] 10/05/2023 8:45 AM CDT Clinical Support Department of Rehabilitation Services in [address] [phone] Symone Trujillo APRN, C.N.P., D.N.P. [address] [place] [phone] Sonali Morrison P.TClarence 10/25/2023 8:30 AM CDT Clinical Support Department of Rehabilitation Services in [address] [phone] Symone Trujillo APRN, ArvindNSameer., D.N.P. [address] [place] [phone] Sonali Morrison P.T. 12/16/2023 10:00 AM CDT Appointment Department of Radiology in [address] [phone] Phani Cook M.D. [address] [place] [phone] Discharge Disposition: Home or Self Care 12/20/2023 1:45 PM CDT Office Visit Department of Cardiovascular Diseases in [address] [phone] Phani Cook M.D. 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 [address] [place] [phone] PCP - General Family Medicine 03/28/[address] [address] 10/11/17 documented as of this encounter
--- OUTSIDE RECORDS SUMMARY | 2023-09-30 08:40 | XMS_ITS | Encounter Summary ---
Author Organization [facility] Address [address] [place] [address] Care Team Providers Care Evp Business Development Name Role Phone Willow Guaajrdo M.D. Primary Care Provider [phone] Reason for Visit * Reason Comments Pain Surgery R KRISTINE carmen i s set up for 07/13 * Outpatient (Routine) - Closed Specialty Diagnoses / Procedures Referred By Alexx t Referred To Contact Orthopedic Surgery Symone Trujillo APRN, C.N.P., D.N.P. [address] [place] [phone] [facility] Region Referral ID Status Reason Start Date Expiration Date Visits Re quested Visits Authorized [id number] Closed 05/03/2023 11/01/2024 1 1 Encounter Details Date Type Department Care Team (Latest Contact Info) Description 07/02/2023 9:30 AM CDT Office Visit Department of Orthopedic Surgery in [address] [phone] Symone Trujillo APRN, C.N.P., D.N.P. [address] [place] [phone] Primary Osteoarthritis Hip Right (Primary Dx) Discharge Disposition: Home or Self Care Social History Tobacco Use Types Packs/Day Years Used Date Smoking Tobacco: Never Passive Smoke Exposure: Never Smokeless Tobacco: Never Alcohol Use Standard Drinks/Week Comments Not Currently 0 (1 standard drink = 0.6 oz pure alcohol) 1 drink approx every 2 weeks. [facility] [email or web address] Answer Date Recorded In the past 12 months has [facility] [employer], gas, oil, or water [employer] threatened to shut off services in your home? No 04/04/2023 Humiliation, Afraid, Rape, and Kick questionnair e Answer Date Recorded Within the last year, have y ou been afraid of your partner or ex-partner? No 03/05/2022 Within the last year, have y ou been humiliated or emotionally abused in other ways by your partner or ex-partner? No Within the last year, have y ou been kicked, hit, slapped, or otherwise physically hurt by your partner or ex-partner? No 03/05/2022 Within the last year, have y ou been raped or forced to have any kind of sexual activity by your partner or ex-partner? No 03/05/2022 Social Connection and Isolat ion Panel [NHANES] Answer Date Recorded In a typical week, how many times do you talk on the phone with family, friends, or neighbors? More than three times a week 03/05/2022 How often do you get togethe r with friends or relatives? Once a week 03/05/2022 How often do you attend chur or caodaism services? Patient declined 03/05/2022 Do you belong to any clubs o r organizations such as amish groups, unions, fraternal or athletic groups, or [...] Answer Date Recorded PHQ-2 Score 0 11/18/2021 [facility] Occupat ional [facility] - Occupational Stress [...] the money to buy more. Never true 04/04/19 Within the past 12 months, t he food you bought just didn't last and you didn't have money to get more. Never true 04/04/2023 PRAPARE - Transportation Answer Date Re corded In the past 12 months, has l ack of transportation kept you from medical appointments or from getting medications? No 03/09 In the past 12 months, has l ack of transportation kept you from meetings, work, or from getting things needed for daily living? No 04/04/2023 Nutrition Answer Date Recorded On average, how [...] have a [facility] place to live 04/04/2023 Education Answer Date Recorded What is the [...] * Symone Trujillo APRN, C.N.P., D.N.P. - 07/02/2023 9:30 AM CDT Meeta is a very pleasant 52-year-old who has significant osteoarthritis of her right hip in his schedule for a right total hip arthroplasty Carmen robotic CT- guided on 07/14/23. She is tried conservative therapy including activity modification, peid-gkc-wtrnvik analgesics including NSAIDs, exercises and muscle strengthening, creams oils and ointments without any improvement in her symptoms. Her quality of life has been significantly affected and at this time she is using a cane. She is unable to do her normal activities of daily living due to the significant pain in her hip. Physical exam-right hip with pain with flexion. She has normal sensation distally. Diagnostic studies-1. Moderate to severe femoroacetabular osteoarthritis with subchondral cystic changes and articular cartilage loss. 2. Anterior superior and superior degenerative labral tears. 3. Moderate joint effusion with mild synovitis. Pertinent medical history-she has had an aortic valve replacement, she has not diabetic, no historyof blood clots, and she has a nonsmoker. Impression and plan-Meeta is a very pleasant 52-year-old who we will be having a Carmen robotic CT-guided right total hip arthroplasty on 07/14/2023. We discussed risks and benefits of this surgery as well as preoperative and postoperative expectations including but not limited to, infection, chronic pain, nerve damage, blood clots, and ultimately . She wishes to proceed. We will continue with anticoagulation postoperatively. And she tolerates oxycodone without difficulty. She will need a physical from her primary provider for anesthesia clearance and attend total joint class. Her questionswere answered. documented in this encounter Plan of Treatment Upcoming Encounters Date Type Department Care Team (Latest Contact Info) Description 10/04/2023 9:15 AM CDT Anticoagulation Visit Department of Anticoagulation in [place] [address] [place] [address] Willow Guajardo M.D. [address] [place] [phone] 10/05/2023 8:45 AM CDT Clinical Support Department of Rehabilitation Services in [address] [phone] Symone Trujillo APRN, C.N.Jigar., D.N.P. [address] [place] [phone] Sonali Morrison, P.T. 10/25/2023 8:30 AM CDT Clinical Support Department of Rehabilitation Services in [address] [phone] Symone Trujillo APRN, Lauren.N.P., D.N.P. [address] [place] [phone] Sonali Morrison, P.T. 12/16/2023 10:00 AM CDT Appointment Department of Radiology in [address] [phone] Phani Cook M.D. [address] [place] [phone] Discharge Disposition: Home or Self Care 12/20/2023 1:45 PM CDT Office Visit Department of Cardiovascular Diseases in [place], [place] [address] [place] [phone] Phani Cook M.D. 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 [address] [place] [phone] PCP - General Family Medicine 03/28/[address] [place] [address] 10/11/17 documented as of this encounter
--- OUTSIDE RECORDS SUMMARY | 2023-09-30 08:40 | XMS_ITS | Encounter Summary ---
Author Organization [facility] Address [address] [place] [address] Care Team Providers Care Dietitian Therapeutic Name Role Phone Willow Guajardo M.D. Primary Care Provider [phone] Reason for Visit * Physical Therapy (Routine) - Canceled Specialty Diagnoses / Procedures Referred By Alexx t Referred To Contact Diagnoses Pain Pelvic Female Procedures PT Ongoing treatment [address] [phone] [facility] Region Referral ID Status Reason Start Date Expiration Date V isits Requested Visits Authorized [id number] Canceled 02/03/2023 03/07/[phone] Encounter Details Date Type Department Care Team (Late st Contact Info) Description 07/05/2023 12:30 PM CDT Clinical Support Department of Rehabilitation Services in [address] [phone] Louann Govea C.NClarencePClarence [address] [place] [phone] Sonali Morrison P.T. Pain Pelvic Female Social History Tobacco Use Types Packs/Day Years Used Date Smoking Tobacco: Never Passive Smoke Exposure: Never Smokeless Tobacco: Never Alcohol Use Standard Drinks/Week Comments Not Currently 0 (1 standard drink = 0.6 oz pure alcohol) 1 drink approx every 2 weeks. [facility] [employer] Answer Date Recorded In the past 12 months has e [employer], [employer], oil, or water [employer] threatened to shut off services in your [...] any clubs o r organizations such as baptist groups, unions, fraternal or athletic groups, or [...] Answer Date Recorded PHQ-2 Score 0 11/18/2021 [facility] [place] of Occupat ional Health - Occupational Stress [...] have a [facility] [place] place to live 04/04/2023 Education Answer Date [...] Progress Notes * Sonali Morrison P.T. - 07/05/2023 12:30 PM CDT Physical Therapy Outpatient Treatment Note SUBJECTIVE Patient's Name: Meeta Perdomotonnysamuel Referring Provider: No ref. provider found Visit Diagnosis: 1. Pain Pelvic Female Payor: [facility] / [facility] / Product Type: Medicaid HMO / No data recorded Epic Visit Count: 19 Patient comments: pt presents to PT today doing well. Reports her low back and leg symptoms continue to improve with the PT treatment sessions and she still has her KRISTINE scheduled for next with one more PT session prior. OBJECTIVE Ortho Exam Limp with ambulation with decreased stance on right LE Subjectively pt reports sig reduction in symptoms into her right foot MRI findings: Right Hip MRI 04/29/23: IMPRESSION: 1. Moderate to severe femoroacetabular osteoarthritis with subchondral cystic changes and articularcartilage loss. 2. Anterior superior and superior degenerative labral tears. 3. Moderate joint effusion with mild synovitis. Lumbar Spine: 04/29/23: IMPRESSION: 1. Mild multilevel degenerative disc disease and facet arthropathy without high- grade spinal canal or neuroforaminal narrowing at any level. 2. At L5-S1 there is an asymmetric disc bulge which contacts the exited right L5 nerve root at the extraforaminal zone. TREATMENT Treatment today consisted of: Manual Therapy: Myofascial release and deep STM to right lumbar spine musculature and right SI joint - pt prone Added lumbar and lower thoracic gentle PA mobs grades I, II and III Thoracic extension mobilizations Therapeutic Exercise: - verbal brief review only Edu to trail any of the strengthening exs and if they do NOT cause pain that it's OK to continue with for pre-hap to strength her right hip musculature piror to KRISTINE surgery next week. E-Stim unattended: IFC current used B lumbar spine, pt prone, machine time 15 min, intensity up to 32 Mechanical Lumbar Traction: intermittent pull - lower pelvic position for lumbar belt - with 75 lbsintensity at 60 sec and 55 lbs x 20 sec, machine time 15 min Home Exercise Program/Education: con't with above HEP daily Patient reports good HEP compliance. Assessment Response to trx: Pt having relief of low back pain and an easier time with ambulation after manual trx and traction today. Clinical Impression: Patient presents to physical therapy with signs and symptoms consistent with s/s of slight right hip impingement and SI joint instability greater on right in addition to having scar adhesions at the distal portion of her sternal scar potentially referring pain. Impairments: pain with right hip ROM and weight bearing squats Functional deficits: reduced tolerance to squatting, walking and standing positions causing right groin pain *pt having significant arthritic changes found on MRI imaging with resultant KRISTINE being recommended by her ortho she states , reports she would like to continue with this plan however with PT primarily focus on her low back and leg pain at this time prior to her upcoming hip KRISTINE surgery Functional Goals and Timeframes: PT Goal #1: Patient will be able to perform a full squat without right anterior hip pain or discomfort. PT Goal #1 Date: 07/05/23 PT Goal #1 Status: Progressing PT Goal #2: Patient will have no end range pain with ROM testing on right hip. PT Goal #2 Date: 07/05/23 PT Goal #3: Patient will b e In HEP for improved core and hip stability and strengthening to lessenpain. PT Goal #3 Date: 07/05/23 Patient goal #4: Patient will be able to have 2/10 low back pain at the end of her day 4+ days per week by 07/05/23. Plan Plan for next session: Patient has a right KRISTINE scheduled for next July 13. State she wouldlike to continue with lumbar focus with her therapy sessions due to her L5-S1 disc having a disc bulge also seen on imaging and she reports right sided low back tightness and some right foot tinglingintermittently. D/C patient from PT after next week as she will be having surgery 2 days later. Time Spent with Patient Modalities Electrical Stimulation - Unattended (min) : 15 min Therapeutic Interventions Manual Therapy (min): 15 min Mechanical traction (min): 15 min Time Tracking Total Timed Units (min): 30 min Total Treatment Time (min): 45 min documented in this encounter Plan of Treatment Upcoming Encounters Date Type Department Care Team (Latest Contact Info) Description 10/04/2023 9:15 AM CDT Anticoagulation Visit Department of Anticoagulation in [place] [address] [place] [address] Willow Guajardo M.D. [address] [place] [phone] 10/05/2023 8:45 AM CDT Clinical Support Department of Rehabilitation Services in [address] [phone] Symone Trujillo APRN, C.N.P., D.N.P. [address] [place] [phone] Sonali Morrison P.Mynor 10/25/2023 8:30 AM CDT Clinical Support Department of Rehabilitation Services in [address] [phone] Symone Trujillo APRN, C.N.P., D.N.P. [address] [place] [phone] Sonali Morrison P.TClarence 12/16/2023 10:00 AM CDT Appointment Department of Radiology in [address] [phone] Phani Cook M.D. [address] [place] [phone] Discharge Disposition: Home or Self Care 12/20/2023 1:45 PM CDT Office Visit Department of Cardiovascular Diseases in [place], [place] [address] [place] [phone] Phani Cook M.D. 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 [address] [place] [phone] PCP - General Family Medicine 03/28/[address] [place] [address] 10/11/17 documented as of this encounter
--- OUTSIDE RECORDS SUMMARY | 2023-09-30 08:40 | XMS_ITS | Encounter Summary ---
Author Organization [facility] Address [address] [place] [address] Care Team Providers Care Allocations Clerk Name Role Phone Willow Guajardo M.D. Primary Care Provider [phone] Reason for Visit * Physical Therapy (Routine) - Canceled Specialty Diagnoses / Procedures Referred By Alexx t Referred To Contact Diagnoses Pain Pelvic Female Procedures PT Ongoing treatment [address] [phone] [facility] Region Referral ID Status Reason Start Date Expiration Date V isits Requested Visits Authorized [id number] Canceled 02/03/2023 03/07/2024 99 [phone] Encounter Details Date Type Department Care Team (Late st Contact Info) Description 07/12/2023 9:30 AM CDT Clinical Support Department of Rehabilitation Services in [address] [phone] Louann Govea C.NClarencePClarence [address] [place] [phone] Rashida Morrison P.T. Pain Pelvic Female Social History Tobacco Use Types Packs/Day Years Used Date Smoking Tobacco: Never Passive Smoke Exposure: Never Smokeless Tobacco: Never Alcohol Use Standard Drinks/Week Comments Not Currently 0 (1 standard drink = 0.6 oz pure alcohol) 1 drink approx every 2 weeks. [facility] [employer] Answer Date Recorded In the past 12 months has e [employer], [employer] oil, or water [employer] threatened to shut off services in your [...] How often do you attend chur or christianity services? Patient declined 03/05/2022 Do you belong to any clubs o r organizations such as faith groups, unions, fraternal or athletic groups, or [...] Answer Date Recorded PHQ-2 Score 0 11/18/2021 [facility] [place] of Occupat ional Health - Occupational Stress [...] as of this encounter Progress Notes * Rashida Morrison P.T. - 07/12/2023 9:30 AM CDT Physical Therapy Outpatient Treatment Note / Discharge Summary SUBJECTIVE Patient's Name: Meeta Gomez Referring Provider: No ref. provider found Visit Diagnosis: 1. Pain Pelvic Female Payor: [facility] / Plan: [facility] CARE / Product Type: Medicaid HMO / No data recorded Epic Visit Count: 20 Patient comments: pt presents to PT today doing well. Reports her low back and leg symptoms have responded well to the PT sessions. She is looking forward to her right KRISTINE surgery in a few days so she doesn't have to limp with her right hip pain any longer. OBJECTIVE Ortho Exam Limp with ambulation with [...] right hip musculature piror to KRISTINE surgery in 2 days. E-Stim unattended: IFC current used B lumbar [...] Date: 07/05/23 PT Goal #1 Status: Progressing - partially met PT Goal #2: Patient will have no end range pain with ROM testing on right hip. PT Goal #2 Date: 07/05/23 - MET for low back PT Goal #3: Patient will b e In HEP for improved core and hip stability and strengthening to lessenpain. PT Goal #3 Date: 07/05/23 - partially met Patient goal #4: Patient will be able to have 2/10 low back pain at the end of her day 4+ days per week by 07/05/23. - MET for LBP not hip Plan Plan for next session: Patient has a right KRISTINE surgery in 2 days. Discharge PT today for low back pain. Patient plans to return for outpatient PT for her s/p right KRISTINE about 1 week after her upcomingsurgery. Time Spent with Patient Modalities Electrical Stimulation - Unattended (min) : 15 min Therapeutic Interventions Manual Therapy (min): 15 min Mechanical traction (min): 15 min Time Tracking Total Timed Units (min): 30 min Total Treatment Time (min): 45 min documented in this encounter Miscellaneous Notes * Addendum Note - Rashida Morrison P.T. - 07/12/2023 9:30 AM CDTAddended by: RASHIDA MORRISON on: 07/12/2023 11:27 AM Modules accepted: Orders documented in this encounter Plan of Treatment Upcoming Encounters Date Type Department Care Team (Latest Contact Info) Description 10/04/2023 9:15 AM CDT Anticoagulation Visit Department of Anticoagulation in [address] [phone] Willow Guajardo M.D. [address] [place] [phone] 10/05/2023 8:45 AM CDT Clinical Support Department of Rehabilitation Services in [address] [phone] Symone Trujillo APRN, C.N.P., D.N.P. [address] [place] [phone] Rashida Morrison P.T. 10/25/2023 8:30 AM CDT Clinical Support Department of Rehabilitation Services in [address] [phone] Symone Trujillo APRN, C.N.P., D.N.P. [address] [place] [phone] Rashida Morrison P.T. 12/16/2023 10:00 AM CDT Appointment Department of Radiology in [address] [phone] Phani Cook M.D. [address] [place] [phone] Discharge Disposition: Home or Self Care 12/20/2023 1:45 PM CDT Office Visit Department of Cardiovascular Diseases in [address] [phone] Phani Cook M.D. 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 [address] [place] [phone] PCP - General Family Medicine 03/28/[address] [address] 10/11/17 documented as of this encounter
--- OUTSIDE RECORDS SUMMARY | 2023-09-30 08:40 | XMS_ITS | Encounter Summary ---
Author Organization [facility] Address [address] [place] [address] Care Team Providers [facility] [employer] Paralegal Name Role Phone Willow Guajardo M.D. Primary Care Provider [phone] Reason for Visit * Auth/Cert (Routine) Specialty Diagnoses / Procedures Referred By Alisaac t Referred To Contact Diagnoses Primary Osteoarthritis Hip Right Primary Osteoarthritis Hip Right [M16.11] Procedures ID COMP ASST [facility] ORTHO ID ROBOTIC SURGICAL SYS ID ARTHRO ACETAB&FEM PROSTH (KRISTINE) ROBOTIC-ASSISTED HIP TOTAL ARTHROPLASTY Referral ID Status Reason Start Date Expiration Date Visits Re quested Visits Authorized [id number] 1 1 Encounter Details Date Type Department Care Team (Latest Contact Info) Description 07/14/2023 9:02 AM CDT - 07/15/2023 3:00 PM CDT Hospital Encounter [facility], Third Floor [address] [place] [address] John Prater M.D. [address] [place] [address] Aftercare Total Hip Arthroplasty (Primary Dx) Discharge Disposition: Home or Self Care Social History Tobacco Use Types Packs/Day Years Used Date Smoking Tobacco: Never Passive Smoke Exposure: Never Smokeless Tobacco: Never Alcohol Use Standard Drinks/Week Comments Not Currently 0 (1 standard drink = 0.6 oz pure alcohol) 1 drink approx every 2 weeks. [facility] Utilities Answer Date Recorded In the past 12 months has e [employer], [employer], or [employer] threatened to shut off services in your [...] week 03/05/2022 How often do you attend [facility] or jew services? Patient declined 03/05/2022 Do you belong to any clubs o r organizations such as hoahaoism groups, unions, fraternal or athletic groups, or [...] Answer Date Recorded PHQ-2 Score 0 [facility]2021 [facility] [place] - Occupational Stress Questionnaire Answer Date Recorded [...] your living situation today? 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 40 tablet 07/15/2023 07/20/2023 sennosides-docusate sodium (SENOKOT-S) 8.6-50 mg per tablet Take 1 tablet by mouth 2 (two) times a day. 100 tablet 07/15/2023 09/07/2023 zolpidem (AMBIEN) 10 mg tablet Take 1 tablet (10 mg total) by mouth at bedtime as needed for insomnia. 90 tablet 1 02/15/2023 09/29/2023 documented as of this encounter Progress Notes * Ziyad Eli, PharmClarenceD., R.Ph. - 07/15/2023 9:37 AM CDT Pts nurse instructed to tell patient to return to her prior home dosing regimen of warfarin and follow up with anticoag clinic by next Wednesday or Wednesday for recommendations/ possible changes. * Maureen Altamirano Pharm.D., R.Ph. - 07/14/2023 5:29 PM CDT Admission Pharmacist Progress Note / Warfarin per pharmacy Note Reason for admission: Primary Osteoarthritis Hip Right [M16.11] PMH: Past Medical History: Diagnosis Date Bicuspid Aortic Valve (HCC) Concussion Loss Of Consciousness Unspecified Duration Initial 12/2001 Fibroid Uterus Submucous 09/23/2017 Migraine Headache Osteoarthritis 06/17/2016 Right knee Other Specified Health Status 2018 Bicuspid aerotic valve Pelvic Joint Disorder Right Sickness Motion Personal History Stenosis Aortic Valve Acquired 10/07/2017 OBJECTIVE New Hospital orders - Home medications changed and stopped by provider medication reconciliation: New acetaminophen tablet 1,000 mg (TYLENOL) bisacodyL suppository 10 mg (DULCOLAX) ceFAZolin injection 2 g (ANCEF) haloperidol lactate injection 1 mg (HALDOL) HYDROmorphone injection 0.5 mg (DILAUDID) ketorolac injection 15 mg (TORADOL) Lactated Ringer's naloxone injection 0.2 mg ondansetron (PF) injection 4 mg (ZOFRAN) oxyCODONE IR tablet 5 mg (ROXICODONE) OR oxyCODONE IR tablet 10 mg (ROXICODONE) polyethylene glycol powder packet 1 packet (MIRALAX) prochlorperazine injection 5 mg (COMPAZINE) sennosides-docusate sodium 8.6-50 mg per tablet 1 tablet (SENOKOT-S) traMADoL tablet 50 mg (ULTRAM) OR traMADoL tablet 100 mg (ULTRAM) warfarin management (MARTOVEN) Rationale: Post-op orders Stopped aspirin 81 mg chewable tablet azithromycin (ZITHROMAX) 500 mg tablet B complex-vitamin (SUPER B-50) capsule calcium carbonate 1,250 mg (500 mg calcium) tablet cholecalciferol (VITAMIN D3) 125 mcg (5,000 Unit) tablet lancets multivitamin capsule omega-3 fatty acids-fish oil 300-1,000 mg capsule prothrombin time strip prothrombin time/INR misc warfarin (JANTOVEN) 2 mg tablet zolpidem (AMBIEN) 10 mg tablet Rationale: hospitalist to order home medications - will send message Medications stopped during pharmacy medication history interview: NONE Arthroplasty total right hip replacement - Pain: Ketorolac IV and Acetaminophen PO scheduled, with oxycodone PO and tramadol PO available asneeded, along with hydromorphone IV as needed. - Bowel regimen: Senna-docusate twice daily scheduled with bisacodyl suppositories and Miralax powder available as needed. Prophylaxis: - Surgical site infection: Antibiotics Dose/Rate Route Frequency Stop ceFAZolin injection 2 g (ANCEF) 2 g intravenous Every 8 hours 07/15/23 1259 X 2 doses - VTE: Current Anti-Coagulation and Anti-Platelet Medications Medication Dose Route Last Rate Last Admin WARFARIN PER PHARMACY, see note below Patient's preferred pharmacy(s): [facility] [address] [address] [facility] [employer] [facility] [address] [employer] [place] [id number] [facility] [address] [facility] [address] [address] ASSESSMENT / PLAN - Continue post operative cares per Orthopedic Surgery team - Will give 4 mg warfarin this evening; recheck and dose warfarin tomorrow, 07/14. - Changes to medications anticipated at discharge: warfarin dosing; pain and bowel meds - No pharmacotherapeutic barriers to discharge from the hospital are identified at this time. Maureen Altamirano, Pharm.D., R.Ph. -------- -------- Warfarin Dosing Progress Note: More information: Meeta Gomez is a 52 y.o. female who was admitted to the hospital on 07/14/2023. Hospital Pharmacy has been consulted for inpatient warfarin management and monitoring. Warfarin Indication: Aortic valve - Mechanical Other indication (comments): No data recorded Type of therapy: Continuation Prior average daily dose: 26 Comorbidities: Post-cardiac valve surgery Are any of these comorbidities new with admission? No Are there any new medication interactions with admission? No Target INR: 2 - 3 Day of therapy: 1 Drug interactions include the following: Strong Potentiator (From admission, onward) None Moderate Potentiators (From admission, onward) Start Dose/Rate Route Frequency Ordered Stop 07/14/23 1600 acetaminophen tablet 1,000 mg (TYLENOL) 1,000 mg oral Every 6 hours 07/14/23 1544 Potentiating (From admission, onward) Start Dose/Rate Route Frequency Ordered Stop 07/14/23 2049 ceFAZolin injection 2 g (ANCEF) Note to Pharmacy: If beta lactam allergic hives or breathing troubles use clindamycin 900 mg IV q 8hours X2 doses 2 g intravenous Every 8 hours 07/14/23 1544 07/15/23 1259 07/14/23 1600 acetaminophen tablet 1,000 mg (TYLENOL) 1,000 mg oral Every 6 hours 07/14/23 1544 07/14/23 1544 traMADoL tablet 50 mg (ULTRAM) Placed in Or Linked Group 50 mg oral Every 6 hours PRN 07/14/23 1544 07/14/23 1544 traMADoL tablet 100 mg (ULTRAM) Placed in Or Linked Group 100 mg oral Every 6 hours PRN 07/14/23 1544 Enzyme Inducers (From admission, onward) None Binders (From admission, onward) None Vitamin K-Containing Medications (168h ago, onward) None Antiplatelets & Anticoagulants (168h ago, onward) Start Dose/Rate Route Frequency Ordered Stop 07/14/23 1915 warfarin tablet 4 mg (JANTOVEN) 4 mg oral Once 07/14/23 1851 07/15/23 0200 07/14/23 1600 warfarin management (JANTOVEN) oral Daily 07/14/23 1544 INR reversal agents were not given. Warfarin Reversal Agent Administrations (last 168 hours) Vitamin K and K-Centra None FFP Administrations During Encounter (Filter): EAP GENERAL TRANSFUSE FFP Medications Shown None Warfarin Administrations (last 168 hours) None INR (no units) Date Value Status 07/14/2023 1.2 Final 07/14/2023 1.1 Final A/P: Warfarin order of 4 mg has been placed for today and the pharmacist team will continue to follow patient's clinical progress daily until discharge from the hospital. Maureen Altamirano Pharm.D., R.Ph. Contact [phone] with any questions about this note. * Maureen Altamirano Pharm.D., R.Ph. - 07/14/2023 5:28 PM CDT Images from the original note were not included. Admission Medication History Note Prior to Admission Medications Med List Status: Pharmacy Complete Set By: Maureen Altamirano Pharm.D., R.Ph. at 07/14/2023 5:28 PM Status Comment 07/14/2023 5:28 PM Spoke with patient in 3206 post-surgery Taking? Last Dose Informant Start Date End Date LT aspirin 81 mg chewable tablet 07/13/2023 at AM Self 10/12/17 -- Chew 1 tablet (81 mg total) daily. azithromycin (ZITHROMAX) 500 mg tablet Past Month at PRN dental appts Self 08/04/22 -- Take 500 mg by mouth as needed (as needed). Prior to dental procedures. B complex-vitamin (SUPER B-50) capsule Past Month at AM Self -- -- Take 1 capsule by mouth daily. Liquid form. calcium carbonate 1,250 mg (500 mg calcium) tablet Past Month at AM Self -- -- Take 500 mg of calcium by mouth every other day. cholecalciferol (VITAMIN D3) 125 mcg (5,000 Unit) tablet Past Month at AM Self 06/14/20 -- Take 1 tablet by mouth every other day. lancets Unknown at PRN Self 04/01/20 -- For use with home INR monitoring device. Use to test INR weekly and as needed per direction of the INR Clinic multivitamin capsule Past Month at afternoon Self -- -- Take 1 capsule by mouth daily. omega-3 fatty acids-fish oil 300-1,000 mg capsule Past Month at AM Self -- -- Take 2 g by mouth every other day. prothrombin time strip Past Week at PRN Self 02/03/22 -- Use to test INR weekly and as needed per direction of the INR Clinic prothrombin time/INR misc Past Week at PRN Self 02/14/18 -- Pt scheduled for Home monitoring education 02/21/18. warfarin (JANTOVEN) 2 mg tablet 07/08/2023 at 2000 Self 11/17/22 -- Please take as directed by your Anticoagulation Clinic. Patient taking differently: as directed. Please take as directed by your Anticoagulation Clinic. 3 mg 5 X week And 4 mg and Wednesday. Notes: Do not add to SIG or label if possible: current dose is 4 mg Wed// and 3mg all other days. zolpidem (AMBIEN) 10 mg tablet Unknown at PRN Self 02/15/23 -- Take 1 tablet (10 mg total) by mouth at bedtime as needed for insomnia. Patient taking differently: Take 5 mg by mouth at bedtime as needed for sleep. Adherence issues: No concerns Medications Discontinued During This Encounter Medication Reason povidone-iodine 0.25% in NaCl 0.9% sterile irrigation solution Patient Discharge ROPivacaine (PF) 100 mg, EPINEPHrine 50 mcg, ketorolac 15 mg in NaCl 0.9% 60 mL injection (ARTHROPLASTY BLOCK 50-74.9 kg) Patient Discharge sodium chloride 0.9 % injection 3 mL Patient Transfer sodium chloride 0.9 % injection 10 mL Patient Transfer sodium chloride 0.9 % injection 3 mL Patient Transfer lidocaine 10 mg/mL (1 %) injection 1 mL (XYLOCAINE) Patient Transfer sodium chloride 0.9 % injection 3 mL Patient Transfer sodium chloride 0.9 % injection 10 mL Patient Transfer sodium chloride 0.9 % injection 3 mL Patient Transfer chlorhexidine 0.12 % mouthwash 15 mL (PERIDEX) Patient Transfer metoprolol tablet 12.5 mg (LOPRESSOR) Patient Transfer tranexamic acid in NaCl IVPB 1,000 mg (CYKLOKAPRON) Patient Transfer ROPivacaine (PF) 100 mg, EPINEPHrine 50 mcg, ketorolac 15 mg in NaCl 0.9% 60 mL injection (ARTHROPLASTY BLOCK 50-74.9 kg) Patient Transfer albuterol nebulizer solution 2.5 mg Patient Transfer fentaNYL injection 25 mcg (SUBLIMAZE) Patient Transfer HYDROmorphone injection 0.5 mg (DILAUDID) Patient Transfer oxyCODONE IR tablet 5 mg (ROXICODONE) Patient Transfer ketamine injection 5 mg (KETALAR) Patient Transfer haloperidol lactate injection 1 mg (HALDOL) Patient Transfer granisetron (PF) injection 1 mg (KYTRIL) Patient Transfer Lactated Ringer's dexAMETHasone injection 4 mg (DECADRON) Maureen Altamirano Pharm.D., R.Ph. The information and recommendations contained in this note are based on information available at the time of documentation. documented in this encounter Consult Notes * Naz Parham, O.T. - 07/15/2023 11:42 AM CDT Occupational Therapy Inpatient Evaluation/Treatment By co-signing this note, the provider certifies the therapy being provided to this patient is reasonable and necessary for the diagnosis or treatment of this patient. SUBJECTIVE Patient's Name: Meeta Perdomotonnysamuel Referring/Attending Provider: John Prater M.D. 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 Anticoagulant Treatment [Z79.01] Monitoring For Therapeutic Drug [...] REPLACEMENT AORTIC VALVE - On-X; Surgeon: Cole Theodroe M.D.; Location: RST ROMB OR TONSILLECTOMY N/A 1997 Tonsillectomy TONSILLECTOMY 1999 History of Present Illness: Patient is s/p robotically assisted CT guided right total hip arhtroplasty Prior Function/Occupational Profile: Prior Mobility/Functional Transfers Level of [place]: Independent Gait Devices/Wheelchair Used Comments: did use SPC x6 weeks due to pain Prior Function/Occupational Profile Lives With: Parent(s) Receives Help From: Family, Friend(s) IADL/Homemaking Assistance: Independent Driving: Independent 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 Leisure Interests: 2 dogs, active lifestyle Home Living Type of Home: House Home Layout: Able to live on main level with bedroom/bathroom Home Access: Stairs to enter without rails Entrance Stairs: Number of Steps: 2 without rail, but from garage could likely use door frame for assist Bathroom Shower/Tub: Tub/shower unit (tall tub ledge) Tub/shower unit location: Main floor Tub/shower unit enclosure type: Curtain Bathroom Toilet: Standard Bathroom Accessibility: Yes How Accessible: Accessible via walker (but very small) Home Equipment Home Adaptive Equipment: Internet Database Specialist, Sock aid, Dressing stick, Long-handled shoe horn, Long-handled sponge Gait Devices Owned: Front-wheeled walker, Cane Other DME Equipment : Other (Comment) (power recliner) Bathroom Equipment: Raised toilet seat with arms Family/Caregiver Present: No Patient/Caregiver Goals: Safe discharge to home of mother Patient Comments: Patient is pleasant and ready for OT, engaged in learning. At rest, pain is well managed (almost 0/10 per report) however during dressing task, sharp R hip pain did bring patient totears. This sharp pain subsided but patient did then report more pain (5/10) with all activity and movement. Planning to discharge with mother's assist later today Additional Staff Present During Session: Kael RN briefly present Activity Orders (From admission, onward) None Precautions Weight Bearing Status: Weightbearing as tolerated on right lower extremity Other Precautions: Posterior hip precautions x12 weeks; short term fall risk Fall Risk (65 and older) Fall in the last 12 months: No Are you fearful of falling?: No Fall Risk Comments: Yes; short-term increase in fall risk following right lower extremity surgery OBJECTIVE Pain Ratin/10 on a 0-10 point scale, location: Surgical, Hip Pain Interventions: Notified Nurse, Rest, and Cold therapy [facility] Inpatient Short Form: Putting on and taking off regular lower body clothing?: A Little Putting on and taking off regular upper body clothing?: None Taking care of personal grooming such as brushing teeth?: None Bathing (including washing, rinsing, drying)?: A Little Toileting, which includes using toilet, bedpan, or urinal?: None Eating meals?: None Daily Activities Raw Score (max 24): 22 Daily Activities Standardized Score: 47.1 Interpretation: Based on scoring guidelines using the raw score value: Those going to home had an average score at or above 18 Those going to facility had an average score at or below 17 Clinicians answer the [facility] Inpatient Short Form based on observed patient activity and/or clinical judgement (ie. patient can be scored without physically performing each activity) Cognition Cognitive assessment method: Therapist observations Following Commands: Follows all commands/directions without difficulty Safety/Judgment: Addressed, no concerns noted Vision/Sensation Basic Assessment Light Touch: No deficits Current Hearing Function: Hearing intact Strength - Upper Extremity Screen: Addressed, no concerns noted Strength - Lower Extremity Screen: Impaired right ROM - Upper Extremity Screen: Addressed, no concerns noted ROM - Lower Extremity Screen: Impaired right UE Dressing UE Dressing Delivery: Assessed, Facilitated UE Dressing Items Included: acid remover shirt, Bra UE Dressing Level of Assistance: Independent UE Dressing Location: Chair LE Dressing LE Dressing Location: Chair, Standing LE Dressing Delivery: Facilitated, Assessed, Instructed, Educated LE Dressing Adaptive Equipment: Internet Database Specialist, Dressing stick, Sock aid, Walker LE Dressing Items Included: Socks, Pants, Underwear/Adult incontinence briefs LE Dressing Level of Assistance: Modified independent, Supervision/Set-up LE Dressing Comments: Facilitate lower body dressing while adhering to posterior hip precautions. Patient able to doff socks with dressing stick and don socks with sock aid at a modified independent level following instruction. Verbal cues to thread surgical lower extremity first while donning lower body clothing seated; demonstration to use catalogue and special products manager to don lower body clothing in order to follow hip precuations, patient able to complete at a mod I level with verbal cueing for technique. CGA to stand to FWW to pull pants/underwear up over hips Toileting Toileting Location: Toilet Toileting Delivery: Facilitated, Assessed Toileting Adaptive Equipment: Grab bars Toileting Level of Assistance: Supervision/Set-up ADL Comments ADL Comments: Education and demonstration provided on posterior hip precautions; patient receptive and engaged in teaching. Handout provided. Car Transfers Comments: Education and demonstration for safe car transfer technique; encourage patient to have their helper move passager seat as far back as allowed and slightly recline the seat prior to picking up patient at time of discharge. Patient will then back up to the car, sit on the seat, and move oneleg at a time into the vehicle. Patient receptive on method. Sit to Stand Transfers # of Assistants: 1 Transfer Surface: Chair, Toilet/Commode Transfer Equipment: Gait belt, Front wheeled walker Level of Assistance: Contact guard assistance, Supervision/set-up Assessment/Delivery: Facilitated, Educated, Assessed Comments: Verbal and tactile cues for safer hand placement and protective extension of surgical limb Stand to Sit Transfers # of Assistants: 1 Transfer Surface: Chair, Toilet/Commode Transfer Equipment: Gait belt, Front wheeled walker Level of Assistance: Supervision/set-up Assessment/Delivery: Facilitated, Assessed Comments: Verbal and tactile cues for safer hand placement and protective extension of surgical limb Other Transfers # of Assistants: 1 Transfer Approach: Ambulating Transfer Equipment: Gait belt, Front wheeled walker Level of Assistance: Contact guard assistance Assessment/Delivery: Facilitated, Assessed Comments: Short distance ambulation from recliner <>bathroom with FWW and CGA; no LOB, tolerated well Team Communication: Patient's nurse was contacted and patient's status was discussed, Discussed patient's care with PT Upon arrival in room patient was found long sitting in recliner chair, needs including call pederson/light in reach, towel roll between knees, ice to R hip . Following treatment patient was left long sitting in recliner chair, needs including call pederson/light in reach, towel roll between knees, ice to Rhip . Assessment Discharge Considerations: Barriers to Discharge Home: None Discharge Therapy Needs - OT: No further skilled therapy Level of Care Needed - OT: Assistance with transportation, Assistance with housekeeping, Assistancewith dressing, Assistance with toilet/shower transfers Clinical Impression: Patient is a 52 y.o. who was admitted to the hospital with a diagnosis of: Primary Osteoarthritis Hip Right [M16.11]. Prior to hospitalization patient was completing daily activities at a mod I level with increasing Rhip pain; use of SPC x6 weeks due to pain. Currently, patient presents with limitations including Pain in R lower extremity, decreased ROM and strength in R lower extremity, decreased knowledge of condition, impaired balance. Functional deficits: Decreased functional mobility and transfers, decreased independence and safetyin ADLs and IADLs Ms. Gomez is s/p R KRISTINE. Today, She was able to complete lower body dressing with AE, doffing and donning socks with AE, functional sit<>stand to FWW, short distance ambulation with FWW, and toilet task at a {mod I level after therapist instruction and demonstration. Therapist discussed KRISTINE precautions and patient was able to recall all precautions and apply to her own daily tasks. Ms. Analisa perea verbalized understanding of car transfer technique and future home modifications/adjustments in order for continued success and recovery after discharge. Ms. Gomez was very thankful for the AE recommendations provided today and will further look into obtaining the recommended items below. Ms. Gomez is anticipated to discharge home with the support of mother, friends; she indicates no concerns regarding discharge. No further need for skilled occupational therapy services at this time; all needs met and questions answered before OT left - discontinue hospital OT order. Recommendations: Refrain from driving until off of pain medication and/or until cleared by surgeon Weight bear as tolerated on the R post-surgical lower extremity Do not bend past 90 degrees at the hip; do not cross legs or ankles; keep knees apart while seated/laying (place a pillow/rolled towel between them) Adhere to all posterior hip precautions during all ADLs and IADLs Obtain/utilize catalogue and special products manager, sock aid, dressing stick, and other AE/DME as needed to complete daily tasks Posterior Hip Precaution Handout and Adaptive Equipment Information Handout provided as patient education Gait belt and recommended device used with all mobility and self care transfers. Rehab potential: Patient has excellent potential to achieve established occupational therapy goals within the time frame outlined below. Education was provided regarding evaluative findings, diagnosis, prognosis, potential risks and benefits of rehabilitation interventions. The treatment plan and discharge recommendations may be modified based upon pt response to treatment. Comorbid Conditions: Arthritis, Cardiopulmonary disease (AVR) Personal Factors: Needs assistive device, Occupational risk factors Occupational Profile and History review: Brief Performance Deficits: 1 - 3 performance deficits Evaluation Complexity: Low Functional Goals and Timeframes: OT Goal #1: Patient will independently verbalize understanding of posterior KRISTINE protocol / precautions and apply to all ADLs and IADLs to protect surgical repair upon discharge from facility. OT Goal #1 Date: 07/15/23 OT Goal #1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 BLOOD ADD-ON [facility] [address] [place] [address], [facility] [place] [address] [place] [address] documented in this encounter Visit Diagnoses Diagnosis Primary Osteoarthritis Hip Right- Primary Aftercare Total Hip Arthroplasty documented in this encounter Admitting Diagnoses Diagnosis Primary Osteoarthritis Hip Right documented in this encounter Administered Medications Inactive Administered Medications - up to 3 most recent administrations Medication Order MAR Action Action Date Dose Rate Site acetaminophen tablet 1,000 mg (TYLENOL) 1,000 mg, oral, Once, On Wed07/14/23 at 0930, For 1 dose, Pre-Op Given 07/14/2023 9:51 AM CDT 1,000 mg acetaminophen tablet 1,000 mg (TYLENOL) 1,000 mg, oral, Every 6 hours, First dose on Wed07/14/23 at 1600 Given 07/15/2023 9:58 AM CDT 1,000 mg Given 07/15/2023 5:03 AM CDT 1,000 mg Given 07/14/2023 9:47 PM CDT 1,000 mg ceFAZolin injection 2 g (ANCEF) 2 g, intravenous, Every 8 hours, First dose on Wed07/14/23 at 2100, For 2 doses, Start within 8 hours of last IV dose. If needed, reconstitute vial per package insert instructions. See IVAG for administration guidelines., Drug Monitoring Program: Pharmacist to adjust medication dosing based on indication and drug clearance factors., Indications: Prophylaxis, surgical Given 07/15/2023 5:03 AM CDT 2 g Given 07/14/2023 9:47 PM CDT 2 g celecoxib capsule 400 mg (CeleBREX) 400 mg, oral, Once, On Wed07/14/23 at 0930, For 1 dose, Pre-Op Given 07/14/2023 9:51 AM CDT 400 mg ketorolac injection 15 mg (TORADOL) 15 mg, intravenous, Every 6 hours, First dose on Wed07/14/23 at 1945, For 4 doses, Adult IV push rate: Over 15 seconds. Peds IV push rate: Over 1 minute. Doses > 15 mg IV/IM are discouraged due to lack of additional analgesic benefit., Drug Monitoring Program: Pharmacist to adjust medication dosing based on indication and drug clearance factors. Given 07/15/2023 1:18 PM CDT 15 mg Given 07/15/2023 8:32 AM CDT 15 mg Given 07/15/2023 1:26 AM CDT 15 mg Lactated Ringer's 20 mL/hr, intravenous, Continuous, Starting on Wed07/14/23 at 0930, Pre-Op New Bag 07/14/2023 2:41 PM CDT 20 mL/hr 20 mL/hr New Bag 07/14/2023 9:51 AM CDT 20 mL/hr 20 mL/hr Lactated Ringer's 50 mL/hr, intravenous, Continuous, Starting on Wed07/14/23 at 1600, DC when tolerating oral fluids New Bag 07/14/2023 4:34 PM CDT 50 mL/hr 50 mL/hr oxyCODONE IR tablet 10 mg (ROXICODONE) 10 mg, oral, Every 4 hours PRN, severe pain or score 7-10 of 10, Starting on Wed07/14/23 at 1544, Second line therapy. If patient is greater than 7 after 2 hours, call service for new order. oxyCODONE IR tablet 5 mg (ROXICODONE) 5 mg, oral, Every 4 hours PRN, moderate pain or score 4-6 of 10, Starting on Wed07/14/23 at 1544, Second line therapy sennosides-docusate sodium 8.6-50 mg per tablet 1 tablet (SENOKOT-S) 1 tablet, oral, 2 times daily, First dose on Wed07/14/23 at 2100, Do not give if patient has diarrhea. Given 07/15/2023 8:32 AM CDT 1 tablet Given 07/14/2023 9:48 PM CDT 1 tablet traMADoL tablet 100 mg (ULTRAM) 100 mg, oral, Every 6 hours PRN, severe pain or score 7-10 of 10, Starting on Wed07/14/23 at 1544, First line therapy or for pain greater than comfort goal (not to exceed 400 mg in 24 hours)., Restriction Criteria (Pharmacy will review and approve if criteria met): Use in adults 18 years and older traMADoL tablet 50 mg (ULTRAM) 50 mg, oral, Every 6 hours PRN, moderate pain or score 4-6 of 10, Starting on Wed07/14/23 at 1544, First line therapy, Restriction Criteria (Pharmacy will review and approve if criteria met): Use in adults 18 years and older Given 07/15/2023 1:19 PM CDT 50 mg Given 07/15/2023 5:03 AM CDT 50 mg Given 07/14/2023 9:47 PM CDT 50 mg warfarin tablet 4 mg (JANTOVEN) 4 mg, oral, Once, On Wed07/14/23 at 1915, For 1 dose, HAZARDOUS - Handle with care. Swallow whole. Do NOT chew or split tablet. May crush using the [employer] system. Given 07/14/2023 7:54 PM CDT 4 mg zolpidem tablet 5 mg (AMBIEN) 5 mg, oral, Bedtime PRN, sleep, Starting on Wed07/14/23 at 2053 Given 07/14/2023 9:48 PM CDT 5 mg documented in this encounter Active and Recently Administered Medications Times are shown in CDT. Scheduled Medication Order 07/13/2023 07/14/2023 07/15/2023 acetaminophen tablet 1,000 mg (TYLENOL) (COMPLETED) 1,000 mg, oral, Once, On Wed07/14/23 at 0930, For 1 dose, Pre-Op 0951 (Given - Provider: Bushra Palmer R.N.) acetaminophen tablet 1,000 mg (TYLENOL) 1,000 mg, oral, Every 6 hours, First dose on Wed07/14/23 at 1600 1630 (Given - Provider: Lisa Solano R.N.)2146 (Given - Provider: Key Ayon R.N.) 0503 (Given - Provider: Key Ayon R.N. - Comment: patient in bathroom)0958 (Given - Provider: Lisa Solano R.N.) ceFAZolin injection 2 g (ANCEF) (COMPLETED) 2 g, intravenous, Every 8 hours, First dose on Wed07/14/23 at 2100, For 2 doses, Start within 8 hours of last IV dose. If needed, reconstitute vial per package insert instructions. See IVAG for administration guidelines., Drug Monitoring Program: Pharmacist to adjust medication dosing based on indication and drug clearance factors., Indications: Prophylaxis, surgical 2146 (Given - Provider: Key Ayon R.N.) 0503 (Given - Provider: Key Ayon R.N.) ceFAZolin injection 2,000 mg (ANCEF) (COMPLETED) 2,000 mg (rounded from 1,800 mg = 25 mg/kg ? 72 kg), intravenous, Once, On Wed07/14/23 at 0930, For 1 dose, Intra-Op, Preoperatively within 1 hour prior to surgical incision If needed, reconstitute vial per package insert instructions. See IVAG for administration guidelines., Drug Monitoring Program: Pharmacist to adjust medication dosing based on indication and drug clearance factors., Indications: Prophylaxis, surgical 1249 (Given - Provider: Bo Sharp APRN, VONDA, DNAP) celecoxib capsule 400 mg (CeleBREX) (COMPLETED) 400 mg, oral, Once, On Wed07/14/23 at 0930, For 1 dose, Pre-Op 0951 (Given - Provider: Bushra Palmer R.N.) dexAMETHasone injection 4 mg (DECADRON) (COMPLETED) 4 mg, intravenous, Once, On Wed07/14/23 at 0930, For 1 dose, Pre-Op, director call to OR 1232 (Given - Provider: Bo Sharp APRN, STRAIGHT KNIFE CUTTER MACHINE, DNAP) ketorolac injection 15 mg (TORADOL) (COMPLETED) 15 mg, intravenous, Every 6 hours, First dose on Wed07/14/23 at 1945, For 4 doses, Adult IV push rate: Over 15 seconds. Peds IV push rate: Over 1 minute. Doses > 15 mg IV/IM are discouraged due to lack of additional analgesic benefit., Drug Monitoring Program: Pharmacist to adjust medication dosing based on indication and drug clearance factors. 184 (Given - Provider: Lisa Solano R.N.) 0126 (Given - Provider: Key Ayon R.N.)0832 (Given - Provider: Lisa Solano R.N.)1318 (Given - Provider: Lisa Solano R.N.) sennosides-docusate sodium 8.6-50 mg per tablet 1 tablet (SENOKOT-S) 1 tablet, oral, 2 times daily, First dose on Wed07/14/23 at 2100, Do not give if patient has diarrhea. 2147 (Given - Provider: Key Ayon R.N.) 0832 (Given - Provider: Lisa Solano R.N.) tranexamic acid in NaCl IVPB 1,000 mg (CYKLOKAPRON) (COMPLETED) 1,000 mg (1 g), intravenous, at 300 mL/hr, Administer over 20 Minutes, Once, On Wed07/14/23 at 0930, For 1 dose, Intra-Op, Administer in OR upon induction 1232 (Given - Provider: Bo Sharp APRN, VONDA, DNAP)1345 (Given - Provider: Bo Sharp APRN, VONDA, DNAP) warfarin management (JANTOVEN) oral, Daily, First dose on Wed07/14/23 at 1600, Pharmacist to Dose: Yes, Target INR: 2 - 3, Comorbidities that constitute Warfarin Sensitivity: Post-cardiac valve surgery, Indication: VTE ortho prophylaxis, Therapy type: Resume Warfarin therapy 1600 (Due) warfarin tablet 4 mg (JANTOVEN) (COMPLETED) 4 mg, oral, Once, On Wed07/14/23 at 1915, For 1 dose, HAZARDOUS - Handle with care. Swallow whole. Do NOT chew or split tablet. May crush using the [employer] system. 1953 (Given - Provider: Key Ayon R.N.) Continuous Medication Order 07/13/2023 07/14/2023 07/15/2023 Lactated Ringer's (CANCELED) 20 mL/hr, intravenous, Continuous, Starting on Wed07/14/23 at 0930, Pre-Op 0951 (New Bag - Provider: Doretha Palmer RWilfred)1441 (New Bag - Provider: Ying Madrigal RClarenceNClarence) Lactated Ringer's 50 mL/hr, intravenous, Continuous, Starting on Wed07/14/23 at 1600, DC when tolerating oral fluids 1634 (New Bag - Provider: Lisa Solano RClarenceNClarence)2153 (Stopped - Provider: Key Ayon R.N.) PRN Medication Order 07/13/2023 07/14/2023 07/15/2023 bisacodyL suppository 10 mg (DULCOLAX) 10 mg, rectal, Daily PRN, constipation, Starting on Wed07/14/23 at 1544, Ordered sequence of administration: polyethylene glycol, then bisacodyl until BM achieved. haloperidol lactate injection 1 mg (HALDOL) 1 mg, intravenous, Every 6 hours PRN, nausea, vomiting, Starting on Wed07/14/23 at 1544, For 48 hours, Total of 3 doses in 24 hour period. RASS must be -2 or higher to administer. Reassess for nausea or vomiting after at least 10 minutes. If nausea or vomiting persists administer next ordered antiemetic medications (order for antiemetic medication administration ondansetron then haloperidol then prochlorperazine) HYDROmorphone injection 0.5 mg (DILAUDID) 0.5 mg, intravenous, Every 2 hour PRN, severe pain or score 7-10 of 10, Starting on Wed07/14/23 at 1544, For 2 doses, May administer if pain is greater than 7 after scheduled and PRN regimen exhausted. If pain remains greater than 7, notify primary service. naloxone injection 0.2 mg 0.2 mg, intravenous, As needed, respiratory depression, Starting on Wed07/14/23 at 1544, For RASS Score -4 or less, respiratory rate of less than 8 breaths/min. Notify provider/service and rapid response team (if available at institution). ondansetron (PF) injection 4 mg (ZOFRAN) 4 mg, intravenous, Every 6 hours PRN, nausea, vomiting, Starting on Wed07/14/23 at 1832, For 48 hours, Reassess for nausea or vomiting after at least 10 minutes. If nausea or vomiting persists administer next ordered antiemetic medications (order for antiemetic medication administration ondansetron then haloperidol then prochlorperazine). oxyCODONE IR tablet 10 mg (ROXICODONE)(Linked Group 1) 10 mg, oral, Every 4 hours PRN, severe pain or score 7-10 of 10, Starting on Wed07/14/23 at 1544, Second line therapy. If patient is greater than 7 after 2 hours, call service for new order. oxyCODONE IR tablet 5 mg (ROXICODONE)(Linked Group 1) 5 mg, oral, Every 4 hours PRN, moderate pain or score 4-6 of 10, Starting on Wed07/14/23 at 1544, Second line therapy polyethylene glycol powder packet 1 packet (MIRALAX) 1 packet, oral, Daily PRN, constipation, Starting on Wed07/14/23 at 1544, Ordered sequence of administration: polyethylene glycol, then bisacodyl until BM achieved. Avoid mixing with starch-based thickened liquids. povidone-iodine 0.25% in NaCl 0.9% sterile irrigation solution (CANCELED) As needed, Starting on Wed07/14/23 at 1342, Intra-Op 1342 (Given - Provider: John Prater M.D.) prochlorperazine injection 5 mg (COMPAZINE) 5 mg, intravenous, Every 6 hours PRN, nausea, vomiting, Starting on Wed07/14/23 at 1544, For 48 hours, RASS must be -2 or higher to administer. Reassess for nausea/vomiting after at least 10 minutes. If nausea or vomiting persists administer next ordered antiemetic medications (order for antiemetic medication administration ondansetron then haloperidol then prochlorperazine) ROPivacaine (PF) 100 mg, EPINEPHrine 50 mcg, ketorolac 15 mg in NaCl 0.9% 60 mL injection (ARTHROPLASTY BLOCK 50-74.9 kg) (CANCELED) As needed, Starting on Wed07/14/23 at 1341, Intra-Op 1341 (Given - Provider: John Prater M.D.) traMADoL tablet 100 mg (ULTRAM)(Linked Group 2) 100 mg, oral, Every 6 hours PRN, severe pain or score 7-10 of 10, Starting on Wed07/14/23 at 1544, First line therapy or for pain greater than comfort goal (not to exceed 400 mg in 24 hours)., Restriction Criteria (Pharmacy will review and approve if criteria met): Use in adults 18 years and older 2146 (See Alternative - Provider: Key Ayon R.N.) 0503 (See Alternative - Provider: Key Ayon R.N.)1319 (See Alternative - Provider: Lisa Solano R.N.)1333 (Not Given - Provider: Lisa Solano R.N. - Reason: Order parameters not met - Comment: 50 mg given, see MAR) traMADoL tablet 50 mg (ULTRAM)(Linked Group 2) 50 mg, oral, Every 6 hours PRN, moderate pain or score 4-6 of 10, Starting on Wed07/14/23 at 1544, First line therapy, Restriction Criteria (Pharmacy will review and approve if criteria met): Use in adults 18 years and older 2146 (Given - Provider: Key Ayon R.N.) 0503 (Given - Provider: Key Ayon R.N.)1319 (Given - Provider: Lisa Solano R.N.)1333 (See Alternative - Provider: Lisa Solano R.N.) zolpidem tablet 5 mg (AMBIEN) 5 mg, oral, Bedtime PRN, sleep, Starting on Wed07/14/23 at 205 214 (Given - Provider: Key Ayon R.N.) Linked Groups Order Group 1: oxyCODONE IR tablet 5 mg (ROXICODONE)Jump to med 5 mg, oral, Every 4 hours PRN, moderate pain or score 4-6 of 10, Starting on Wed07/14/23 at 1544, Second line therapy Or oxyCODONE IR tablet 10 mg (ROXICODONE)Jump to med 10 mg, oral, Every 4 hours PRN, severe pain or score 7-10 of 10, Starting on 07/14/23 at 1544, Second line therapy. If patient is greater than 7 after 2 hours, call service for new order. Group 2: traMADoL tablet 50 mg (ULTRAM)Jump to med 50 mg, oral, Every 6 hours PRN, moderate pain or score 4-6 of 10, Starting on 07/14/23 at 1544, First line therapy, Restriction Criteria (Pharmacy will review and approve if criteria met): Use in adults 18 years and older Or traMADoL tablet 100 mg (ULTRAM)Jump to med 100 mg, oral, Every 6 hours PRN, severe pain or score 7-10 of 10, Starting on 07/14/23 at 1544, First line therapy or for pain greater than comfort goal (not to exceed 400 mg in 24 hours)., Restriction Criteria (Pharmacy will review and approve if criteria met): Use in adults 18 years and older documented in this encounter Additional Health Concerns Assessment Noted Time PHQ-9 Depression Total Score: 2 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 [address] [place] [phone] PCP - General Family Medicine 03/28/[address] [address] 10/11/17 documented as of this encounter
--- OUTSIDE RECORDS SUMMARY | 2023-09-30 08:40 | XMS_ITS | Encounter Summary ---
Author Organization [facility] Address [address] [place] [address] Care Team Providers Care Director Decision Support Name Role Phone Willow Guajardo M.D. Primary Care Provider [phone] Reason for Referral * Outpatient (Routine) - Closed Specialty Diagnoses / Procedures Referred By Alexx espinoza Referred To Contact Anticoagulation Willow Guajardo M.D. [id number] [place] [phone] [facility] Referral ID Status Reason Start Date Expiration Date Visits Re quested Visits Authorized [id number] Closed 07/05/2023 01/03/2025 1 1 Reason for Visit * Outpatient (Routine) - Closed Specialty Diagnoses / Procedures Referred By Contac t Referred To Contact Anticoagulation Diagnoses Prosthesis Aortic Valve Half-Way (Current) Anticoagulant Treatment Monitoring For Therapeutic Drug Therapy Willow Guajardo M.D. [address] [place] [phone] [facility] Referral ID Status Reason Start Date Expiration Date Visits Re quested Visits Authorized [id number] Closed 06/07/2023 12/06/2024 1 1 Encounter Details Date Type Department Care Team (Latest Contact Info) Description 07/05/2023 8:30 AM CDT Anticoagulation Visit Department of Anticoagulation in [place], [place] [address] [place] [phone] Willow Guajardo M.D. [address] [place] [address] SOPHIA Carey [phone] Prosthesis Aortic Valve; Half-Way Anticoagulant Treatment [Z79.01]; Monitoring For Therapeutic Drug Therapy [Z51.81] Social History Tobacco Use Types Packs/Day Years Used Date Smoking Tobacco: Never Passive Smoke Exposure: Never Smokeless Tobacco: Never Alcohol Use Standard Drinks/Week Comments Not Currently 0 (1 standard drink = 0.6 oz pure alcohol) 1 drink approx every [address] [facility] Control Medical Technologyities Answer Date Recorded In the past 12 months has e [place], gas, oil, or water [employer] threatened to shut off services in your [...] often do you attend chur ch or buddhist services? Patient declined 03/05/2022 Do you belong [...] Answer Date Recorded PHQ-2 Score 0 11/18/2021 [facility] - Occupational Stress Questionnaire Answer Date Recorded [...] money to buy more. Never true 04/04/19 24 Within the past 12 months, t [...] living situation today? I have a [facility] place to live 04/04/2023 Education Answer Date [...] this encounter Patient Instructions * Patient Instructions* Teresa Payne, RClarenceN. - 07/05/2023 8:30 AM CDT The day before your next [...] please call Primary Care Anticoagulation Program at [phone] from 7:30 am to 4:30 pm. Wednesday-Wednesday [...] if you start any herbal or other [id number] product (check with your doctor, a nurse, or pharmacist). If you change your diet significantly. If you decide to stop or start using tobacco or alcohol. If you notice unusual bruising or bleeding. If you notice dark, tarry, or bright red stools or blood in your urine. If you have a painful and swollen calf. documented in this encounter Progress Notes * Teresa Payne R.N. - 07/05/2023 8:30 AM CDT Warfarin Maintenance Nursing Protocol Goal Range NON-STANDARD (version approved 04/2021) Visit Type: Telephone Primary reason for visit: Home INR Monthly INR review Information provided by:patient INR result: 1.4 Goal range: 1.5-2.0 Inclusion Criteria: All inclusion [...] to extend beyond Home INR follow-up order. and Patient reports upcoming procedure or surgery within the next 60 days without documented plan for warfarin dosing: yes. Proceeded to maintenance dosing and follow-up. Initiate periprocedural protocol or consult provider forperiprocedural dosing. Additional Info: Pt has upcoming procedure hip surgery 07/13, gave her the plan and she is concerned about already being low today and then holding. I explained as much as i could to her she just wanted some reassurance from one of our pharmacists on the procedural plan. I let her know per Windy Torres INR goal is around INR of 1 for an orthopedic surgery Previous INR was therapeutic. Today???s INR is Subtherapeutic, Causes: See above positive screening criteria/additional information sections.. Dosing and follow up recommendation: Protocol dosing range for INR is 0.1 below goal range to 0.1 above goal range: INR 0.1 below goal range. No change in weekly dose. Currently bridging? no. Next INR on 07/19/23 per consult. Additional dosing or follow-up information: Provider consulted: Melissa- Anticoagulation [facility] Pt is on injectable anticoagulant: No. [...] CDT Anticoagulation Visit Department of Anticoagulation in [place], [place] [address] [place] [address] Willow Guajardo M.D. [address] [place] [phone] 10/05/2023 8:45 AM CDT Clinical Support Department of Rehabilitation Services in [address] [phone] Symone Trujillo APRN, C.NRobyn, D.N.P. [address] [place] [phone] Sonali Morrison P.Mynor 10/25/2023 8:30 AM CDT Clinical Support Department of Rehabilitation Services in [address] [phone] Symone Trujillo APRN, C.NRobyn, D.N.P. [address] [place] [phone] Sonali Morrison P.Mynor 12/16/2023 10:00 AM CDT Appointment Department of Radiology in [address] [phone] Phani Cook M.D. [address] [place] [phone] Discharge Disposition: Home or Self Care 12/20/2023 1:45 PM CDT Office Visit Department of Cardiovascular Diseases in [address] [phone] Phani Cook M.D. [address] [place] [phone] Scheduled Referrals Name Type Priority Associated Diagnoses Order Schedule Anticoagulation nurse visit (clinic) Outpatient Referral Routine Expected: 07/19/2023, Expires: 10/03/2024 documented as of this encounter Procedures Procedure Name Priority Date/Time Associated Diagnosis Comments PROTHROMBIN TIME (PT), P Routine 07/05/2023 PROTHROMBIN TIME (PT), P Routine 06/28/2023 documented in this encounter Results * Prothrombin Time (PT) (07/05/2023) EXT INR 1.40 PATIENT PO INT OF CARE DEVICE Comment:self Blood (Blood, Venous) Historical Provider LAB BLOOD ADD-ON Performing Organization Address [facility] Co de Phone Number PATIENT POINT OF CARE DEVICE * Prothrombin Time (PT) (06/28/2023) EXT INR 1.50 PATIENT PO INT OF CARE DEVICE Comment:self Blood (Blood, Venous) Historical Provider LAB BLOOD ADD-ON Performing Organization Address [facility] Co de Phone Number PATIENT POINT OF CARE DEVICE documented in this encounter Visit Diagnoses Diagnosis Prosthesis Aortic Valve Half-Way Anticoagulant Treatment [Z79.01] Monitoring For Therapeutic Drug Therapy [Z51.81] documented in this encounter Additional Health Concerns Assessment Noted Time PHQ-9 Depression Total Score: 2 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 [address] [place] [phone] PCP - General Family Medicine 03/28/[address] [address] 10/11/17 documented as of this encounter
--- OUTSIDE RECORDS SUMMARY | 2023-09-30 08:40 | XMS_ITS | Encounter Summary ---
Author Organization [facility] Address [address] [place] [address] Care Team Providers Care Physician Anesthesiologist Name Role Phone Willow Guajardo M.D. Primary Care Provider [phone] Reason for Visit * Auth/Cert (Routine) Specialty Diagnoses / Procedures Referred By Alisaac t Referred To Contact Diagnoses Primary Osteoarthritis Hip Right Primary Osteoarthritis Hip Right [M16.11] Procedures NC COMP ASST MUSCSKEL FAITH ORTHO [place] ROBOTIC SURGICAL SYS [place] ARTHRO ACETAB&FEM PROSTH (KRISTINE) ROBOTIC-ASSISTED HIP TOTAL ARTHROPLASTY Referral ID Status Reason Start Date Expiration Date Visits Re quested Visits Authorized [id number] 1 1 Encounter Details Date Type Department Care Team (Late st Contact Info) Description 07/14/2023 10:45 AM CDT - 07/14/2023 1:15 PM CDT Surgery Outpatient Procedure Center in [address] [address] Jhon Prater M.D. [address] [place] [address] ROBOTIC-ASSISTED HIP TOTAL ARTHROPLASTY Social History Tobacco Use Types Packs/Day Years Used Date Smoking Tobacco: Never Passive Smoke Exposure: Never Smokeless Tobacco: Never Alcohol Use Standard Drinks/Week Comments Not Currently 0 (1 standard drink = 0.6 oz pure alcohol) 1 drink approx every 2 weeks. [facility] CRITICAL TECHNOLOGIESities Answer Date Recorded In the past 12 months has e [employer], [employer], oil, or water [employer] threatened to shut off services in your [...] How often do you attend [facility] or alevism services? Patient declined 03/05/2022 Do you belong to any clubs o r organizations such as bahai groups, unions, fraternal or athletic groups, or [...] 0 11/18/2021 [facility] of Occupat ional [facility] - Occupational Stress Questionnaire Answer Date Recorded [...] Sign Reading Time Taken Comments Blood Pressure 125/72 07/14/2023 9:20 AM CDT Pulse 78 07/14/2023 9:20 AM CDT Temperature 36.3 ??C (97.3 ??F) 07/14/2023 9:15 AM CD T Respiratory Rate 16 07/14/2023 9:15 AM CDT Oxygen Saturation 96% 07/14/2023 9:20 AM CDT Inhaled Oxygen Concentration - - Weight 71.1 kg (156 lb 12 oz) 07/14/2023 9:15 AM CDT Height 160 cm (5' 3) [...] Clinic 400 strip 1 02/03/2022 prothrombin time/INR miscIndications:Group Home (Current) Anticoagulant Treatment,Monitoring For Therapeutic Drug Therapy,Prosthesis [...] this encounter Progress Notes * Ziyad Eli, PharmFranklin., R.Ph. - 07/15/2023 9:37 AM CDT Pts [...] traMADoL tablet 100 mg (ULTRAM) warfarin management (JANTOVEN) Rationale: Post-op orders Stopped aspirin 81 mg [...] PHARMACY, see note below Patient's preferred pharmacy(s): [facility] [address] [address] [facility] [place] [facility] [place] [phone] [facility] [employer] [facility] [address] [facility] [place] [address] [address] ASSESSMENT / PLAN - Continue post operative [...] 1851 07/15/23 0200 07/14/23 1600 warfarin management (MARTOVEN) oral Daily 07/14/23 1544 INR reversal agents [...] the hospital. Maureen Altamirano Pharm.D., R.Ph. Contact [phone] with any questions about this note. * [...] warfarin (JANTOVEN) 2 mg tablet 07/08/2023 at 1999 Self 11/17/22 -- Please take as directed [...] posterior hip precautions Onset Date: 07/14/23 Payor: [facility] / Plan: [facility] CARE / Product Type: Medicaid HMO / PERTINENT MEDICAL / SURGICAL HISTORY: Patient Active Problem List Diagnosis Migraine Headache Osteoarthritis Allergy Penicillin Antibiotic Personal History Pain Shoulder Right Pelvic Joint Disorder Right Pain Joint Ankle Left Fibroid Uterus Submucous Insufficiency Convergence Constipation Stenosis Regurgitation Mixed Mitral Aortic Prosthesis Aortic Valve Group Home Anticoagulant Treatment [Z79.01] Monitoring For Therapeutic Drug [...] - On-X; Surgeon: Cole Theodore M.D.; Location: RST ROMB OR TONSILLECTOMY N/A 1997 Tonsillectomy TONSILLECTOMY 1999 History of Present Illness: Patient is s/p robotically assisted CT guided right total hip arhtroplasty Prior Function/Occupational Profile: Prior Mobility/Functional Transfers Level of [place]: Independent Gait Devices/Wheelchair Used Comments: did use SPC x6 weeks due to pain Prior Function/Occupational Profile Lives With: Parent(s) Receives Help From: Family, Friend(s) IADL/Homemaking Assistance: Independent Driving: Independent 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 Inpatient Short Form: Putting on and taking [...] at or below [address] [facility] Inpatient Short Form based on observed patient [...] Delivery: Assessed, Facilitated UE Dressing Items Included: coverage specialist rn shirt, Bra UE Dressing Level of Assistance: Independent UE Dressing Location: Chair LE Dressing LE Dressing Location: Chair, Standing LE Dressing Delivery: Facilitated, Assessed, Instructed, Educated LE Dressing Adaptive Equipment: E Commerce Marketing Analyst, Dressing stick, Sock aid, Walker LE Dressing [...] lower body clothing seated; demonstration to use pet store merchandiser to don lower body clothing in order [...] precautions during all ADLs and IADLs Obtain/utilize pet store merchandiser, sock aid, dressing stick, and other AE/DME [...] Post KRISTINE protocol Onset Date: 07/14/23 Payor: [facility] / Plan: [facility] CARE / Product Type: Medicaid HMO / PERTINENT MEDICAL / SURGICAL HISTORY: Patient Active Problem List Diagnosis Migraine Headache Osteoarthritis Allergy Penicillin Antibiotic Personal History Pain Shoulder Right Pelvic Joint Disorder Right Pain Joint Ankle Left Fibroid Uterus Submucous Insufficiency Convergence Constipation Stenosis Regurgitation Mixed Mitral Aortic Prosthesis Aortic Valve Group Home Anticoagulant Treatment [Z79.01] Monitoring For Therapeutic Drug [...] - On-X; Surgeon: Cole Theodore M.D.; Location: [facility] ROM OR TONSILLECTOMY N/A 1997 Tonsillectomy TONSILLECTOMY 1999 History of Present Illness: Robotically-assisted CT-guided Right total hip arthroplasty. 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 [facility] Inpatient Short Form: -[facility] Basic Mobility (V.2) How much help [...] 3-5 steps with a railing?: A Little -[facility] Basic Mobility (V.2) Raw Score: 19 -[facility] Basic Mobility (V.2) Standardized Score: 42.48 Interpretation: Based on scoring guidelines using the raw score value: Those going to home had an average score at or above 18 Those going to facility had an average score at or below [address] [facility] Inpatient Short Form based on observed patient [...] her rehab she is residing at her [facility] in [place], [place]. Meeta fells safe at her mothers home for the time being. Meeta indicates that her family and friends have been her supports through all these recent changes in her life. Meeta denies a need for any ongoing counseling resources at this time. Social Work Services ([facility]) contact information, including a phone number, [...] as recommendedto patient by anticoagulation clinic from [place] as long as no active bleeding concern [...] Right Post-op Diagnosis Primary Osteoarthritis Hip Right Night Supervisor A curriculum assistant principal actively participated and was necessary for one [...] then closed using #1 Vicryl in interrupted kjkhus-lh-duqsz fashion followed by this being tagged up to the greater trochanter as were the short external rotators. Once that was completed, the IT band was then closed using #1 Ethibond in interrupted urcuky-sf-umksp fashion followed by copious irrigation. Subcutaneous tissue [...] CDT Anticoagulation Visit Department of Anticoagulation in [address] [phone] Willow Guajardo M.D. [address] [place] [phone] 10/05/2023 8:45 AM CDT Clinical Support Department of Rehabilitation Services in [address] [phone] Symone Trujillo APRN, C.N.P., D.N.P. [address] [place] [phone] Sonali Morrison PVicky 10/25/2023 8:30 AM CDT Clinical Support Department of Rehabilitation Services in [address] [phone] Symone Trujillo APRN, C.N.P., D.N.P. [address] [place] [phone] Sonali Morrison P.T. 12/16/2023 10:00 AM CDT Appointment Department of Radiology in [address] [phone] Phani Cook M.D. [address] [place] [phone] Discharge Disposition: Home or Self Care 12/20/2023 1:45 PM CDT Office Visit Department of Cardiovascular Diseases in [address] [phone] Phani Cook M.D. [address] [place] [phone] documented as of this encounter Procedures [...] CDT 07/15/2023 6:24 AM CDT Symone Trujillo APRN, Lauren.N.P., D.N.P. LAB BLO OD ADD-ON Performing Organization Address [facility]/ZIP Co de Phone Number [facility] [address] [facility] [place] [address], [facility] in [address] [address] * (ABNORMAL) Hemoglobin (07/15/2023 6:11 AM CDT) Pathologist [facility] Hemoglobin 10.1(L) 11.6 - 15.0 g/dL 07/15/2023 6:59 AM CDT RDWG Blood (Blood, Venous) 07/15/2023 6:11 AM CDT 07/15/2023 6:24 AM CDT Symone Trujillo APRN, Lauren.N.P., D.N.P. LAB BLO OD ADD-ON Performing Organization Address City/[facility]/ZIP Co de Phone Number [facility] [address] [facility] [place] [address], [facility] in [address] [address] * (ABNORMAL) Prothrombin Time (PT) (07/14/2023 4:42 [...] APRN, C.N.P., D.N.P. LAB BLO OD ADD-ON [facility] [address] [place] [address], [facility] RDWG [facility] [place] [address] [place] [address] * DX Pelvis 1-2 Views (07/14/2023 2:54 [...] CDT Charis Lee M.D. LAB BLOOD ADD-ON [facility] [address] [place] [address], [facility] RDWG [facility] [place] [address] [place] [address] documented in this encounter Visit Diagnoses Diagnosis Primary Osteoarthritis Hip Right- Primary Aftercare Total Hip Arthroplasty Primary Osteoarthritis Hip Right documented in this encounter Admitting Diagnoses Diagnosis [...] on Wed07/14/23 at 1544, Second line therapy povidone-iodine 0.25% in NaCl 0.9% sterile irrigation solution As needed, Starting on Wed07/14/23 at 1342, Intra-Op Given 07/14/2023 1:42 PM CDT 1,000 mL Right Hip ROPivacaine (PF) 100 mg, EPINEPHrine 50 mcg, ketorolac 15 mg in NaCl 0.9% 60 mL injection (ARTHROPLASTY BLOCK 50-74.9 kg) As needed, Starting on Wed07/14/23 at 1341, Intra-Op Given 07/14/2023 1:41 PM CDT 60 mL Right Hip sennosides-docusate sodium 8.6-50 mg per tablet 1 [...] or split tablet. May crush using the [employer] system. Given 07/14/2023 7:54 PM CDT 4 mg zolpidem tablet 5 mg (AMBIEN) 5 mg, oral, Bedtime PRN, sleep, Starting on Wed07/14/23 at 205 Given 07/14/2023 9:48 PM CDT 5 mg [...] Comment: patient in bathroom)0958 (Given - Provider: Lias Solano R.N.) ceFAZolin injection 2 g (ANCEF) [...] Prophylaxis, surgical 1249 (Given - Provider: Bo Sharp, PORCELAIN WAXER, ADJUNCT LATIN PROFESSOR, DNAP) celecoxib capsule 400 mg (CeleBREX) (COMPLETED) 400 mg, oral, Once, On Wed07/14/23 at 0930, For 1 dose, Pre-Op 0951 (Given - Provider: Bushra Palmer R.N.) dexAMETHasone injection 4 mg (DECADRON) (COMPLETED) 4 mg, intravenous, Once, On Wed07/14/23 at 0930, For 1 dose, Pre-Op, broomcorn thresher to OR 1232 (Given - Provider: Bo Sharp APRN, VONDA, DNAP) ketorolac injection 15 mg (TORADOL) (COMPLETED) [...] upon induction 1232 (Given - Provider: Bo Sahrp APRN, VONDA, DNAP)1345 (Given - Provider: Bo Sharp APRN, VONDA, DNAJigar) warfarin management (JANTOVEN) oral, Daily, First dose on Wed07/14/23 at 1600, Pharmacist to Dose: Yes, Target INR: 2 - 3, Comorbidities that constitute Warfarin Sensitivity: Post-cardiac valve surgery, Indication: VTE ortho prophylaxis, Therapy type: Resume Warfarin therapy 1600 (Due) warfarin tablet 4 mg () (COMPLETED) 4 mg, oral, Once, On Wed07/14/23 at 1915, For 1 dose, HAZARDOUS - Handle with care. Swallow whole. Do NOT chew or split tablet. May crush using the [employer] system. 1953 (Given - Provider: Key Ayon RClarenceN.) Continuous Medication Order 07/13/2023 07/14/2023 07/15/2023 Lactated Ringer's (CANCELED) 20 mL/hr, intravenous, Continuous, Starting on Wed07/14/23 at 0930, Pre-Op 0951 (New Bag - Provider: Doretha Palmer RClarenceNClarence)1441 (New Bag - Provider: Ying Madrigal RClarenceNClarence) Lactated Ringer's 50 mL/hr, intravenous, Continuous, Starting on Wed07/14/23 at 1600, DC when tolerating oral fluids 1634 (New Bag - Provider: Lisa Solano RClarenceNClarence)2153 (Stopped - Provider: Key Ayon RInes.) PRN Medication Order 07/13/2023 07/14/2023 07/15/2023 bisacodyL [...] PRN, sleep, Starting on Wed07/14/23 at 2053 2148 (Given - Provider: Key Ayon R.N.) Linked [...] Total Score: 2 02/24/20 18 2:31 PM TUNNELLER documented as of this encounter Care Teams Physician Anesthesiologist Relationship Specialty Start Date End Date Willow Guajardo M.D. [address] [place] [address] [place] [phone] PCP - General Family Medicine 03/28/[address] [place] [address] 10/11/17 documented as of this encounter
--- OUTSIDE RECORDS SUMMARY | 2023-09-30 08:40 | XMS_ITS | Encounter Summary ---
Author Organization [facility] Address [address] [place] [address] Care Team Providers Care Photographic Intelligence Officer Name Role Phone Willow Guajardo M.D. Primary Care Provider [phone] Encounter Details Date Type Department Care Team (Late st Contact Info) Description 07/13/2023 11:30 AM CDT Office Visit Department of Integrative Medicine in [place], [place] [address] [place] [address] Мария Gilmore M.D. [address] [place] [phone] Segundo Mcgraw [address] [phone] Discharge Disposition: Home or Self Care Social History Tobacco Use Types Packs/Day Years Used Date Smoking Tobacco: Never Passive Smoke Exposure: Never Smokeless Tobacco: Never Alcohol Use Standard Drinks/Week Comments Not Currently 0 (1 standard drink = 0.6 oz pure alcohol) 1 drink approx every 2 weeks. [facility] Utilities Answer Date Recorded In the past 12 months has th e [employer], gas, oil, or water [employer] threatened to shut off services in your [...] week 03/05/2022 How often do you attend [facility] or sikhism services? Patient declined 03/05/2022 Do you belong to any clubs o r organizations such as worship groups, unions, fraternal or athletic groups, or [...] 11/18/2021 [facility] of Occupat ional [facility] - Occupational Stress Questionnaire Answer Date [...] as of this encounter Progress Notes * Segundo Mcgraw - 07/13/2023 11:30 AM CDT Meeta is having hip replacement [place] on her right hip tomorrow. She came in today for a pre-surgery session for relaxation and opening to healing. I did cakra connection to balance her energy centers, some magnetic clearing and mind clearing. She was very relaxed and felt grounded after our session. I will do another session tomorrow after her surgery. documented in this encounter Plan of Treatment Upcoming Encounters Date Type Department Care Team (Latest Contact Info) Description 10/04/2023 9:15 AM CDT Anticoagulation Visit Department of Anticoagulation in [place] [address] [place] [address] Willow Guajardo M.D. [address] [place] [phone] 10/05/2023 8:45 AM CDT Clinical Support Department of Rehabilitation Services in [address] [phone] Symone Trujillo APRN, C.N.P., D.N.P. [address] [place] [phone] Sonali Morrison P.T. 10/25/2023 8:30 AM CDT Clinical Support Department of Rehabilitation Services in [address] [phone] Symone Trujillo APRN, C.N.P., D.N.P. [address] [place] [phone] oSnali Morrison P.T. 12/16/2023 10:00 AM CDT Appointment Department of Radiology in [address] [phone] Phani Cook M.D. [address] [place] [phone] Discharge Disposition: Home or Self Care 12/20/2023 1:45 PM CDT Office Visit Department of Cardiovascular Diseases in [address] [phone] Phani Cook M.D. [address] [place] [phone] documented as of this encounter Visit Diagnoses Not on filedocumented in this encounter Additional Health Concerns Assessment Noted Time PHQ-9 Depression Total Score: 2 02/24/20 18 2:31 PM MOLDER CLOSED MOLDS documented as of this encounter Care Teams Photographic Intelligence Officer Relationship Specialty Start Date End Date Willow Guajardo M.D. [address] [place] [phone] PCP - General Family Medicine 03/28/[address] [address] 10/11/17 documented as of this encounter
--- OUTSIDE RECORDS SUMMARY | 2023-09-30 08:40 | XMS_ITS | Encounter Summary ---
Author Organization [facility] Address [address] [place] [address] Care Team Providers Care Camera Prototyping Engineer Name Role Phone Willow Guajardo M.D. Primary Care Provider [phone] Reason for Visit * Outpatient (Routine) - Closed Specialty Diagnoses / Procedures Referred By Alexx t Referred To Contact Anesthesiology Diagnoses Preoperative Exam Symone Trujillo APRN, C.N.P., D.N.P. [address] [place] [phone] [facility] Region Referral ID Status Reason Start Date Expiration Date Visits Re quested Visits Authorized [id number] Closed 05/03/2023 11/01/2024 1 1 Encounter Details Date Type Department Care Team (Latest Contact Info) Description 07/06/2023 9:15 AM CDT Virtual Visit Preoperative Evaluation Center in [address] [phone] Symone Trujillo APRN, C.N.P., D.N.P. [address] [place] [phone] Мария Frey R.N. [address] [place] [phone] Preanesthetic Medical Exam (Primary Dx); Preoperative Exam Discharge Disposition: Home or Self Care Social History Tobacco Use Types Packs/Day Years Used Date Smoking Tobacco: Never Passive Smoke Exposure: Never Smokeless Tobacco: Never Alcohol Use Standard Drinks/Week Comments Not Currently 0 (1 standard drink = 0.6 oz pure alcohol) 1 drink approx every 2 weeks. [facility] [employer] Answer Date Recorded In the past 12 months has e [employer], gas, oil, or water [employer] threatened to shut off services in your [...] any clubs o r organizations such as sabianism groups, unions, fraternal or athletic groups, or [...] Answer Date Recorded PHQ-2 Score 0 11/18/2021 [facility] of Occupat ional Health - Occupational Stress [...] your living situation today? I have a susan place to live 04/04/2023 Education Answer [...] of this encounter Progress Notes * Мария Frey R.N. - 07/06/2023 9:15 AM CDT NICOLE Nurse visit completed. Surgery Nurse Biomedical Engineering Technician Skin Alert Assessment: Complete this section only if the patient is greater than or equal to 18 y/o BMI <19 or >50: No Documented risk factors that indicate higher risk for pressure ulcer? No Do you have impaired sensation? No, sometimes have numbness in bottom of right foot do to budge in back Is patient chair-bound or unable to reposition themselves? No Anesthesia Risk Assessment: Do you have an implanted cardiac device? No valve Do you have difficulties lying flat? No Comment: Do you have any zoroastrian or other objection to having a blood transfusion? No Teaching: Preoperative education was done with (x) patient . It was confirmed the patient/family member had received the following preoperative education sheets: Checklist For Surgical Patients ([id number]),???Surgical Site Infections: Reducing Your Risk ([id number]), Speak Up: Antibiotics ([id number]), Acute Pain and the Healing Process ( [id number]) with the Integrative Medicine and Health ([id number]), and ???Appointments RequiredBefore Your Surgery?? (no MC). These were reviewed in detail. (x) Preoperative medication education provided through [facility] Expert Total Joint Class scheduled: () N/A Date:07/05 (x)Total Joint Surgery: Total Joint Class (good for one year). (x) Reviewed Hibiclens packet and reviewed Reducing Your Risk of Surgical Infection ([id number]). CT 06/13 Additional Pamphlets also reviewed: Patient is ready to learn, no apparent learning barriers were identified. Reviewed diagnosis and treatment plan; patient verbalized understanding through teach back. All questions were answered. Patient has contact information and understands the need to call with any questions or concerns. Post op appointments: 1st po with surgeon or physician teachers' assistant: (x) made documented in this encounter Plan of Treatment Upcoming Encounters Date Type Department Care Team (Latest Contact Info) Description 10/04/2023 9:15 AM CDT Anticoagulation Visit Department of Anticoagulation in [place] [address] [place] [address] Willow Guajardo M.D. [address] [place] [phone] 10/05/2023 8:45 AM CDT Clinical Support Department of Rehabilitation Services in [address] [phone] Symone Trujillo APRN, C.N.P., D.N.P. [address] [place] [phone] Sonali Morrison, P.T. 10/25/2023 8:30 AM CDT Clinical Support Department of Rehabilitation Services in [address] [phone] Symone Trujillo APRN, C.N.P., D.N.P. [address] [place] [phone] Sonali Morrison, P.T. 12/16/2023 10:00 AM CDT Appointment Department of Radiology in [address] [phone] Phani Cook M.D. [address] [place] [phone] Discharge Disposition: Home or Self Care 12/20/2023 1:45 PM CDT Office Visit Department of Cardiovascular Diseases in [address] [phone] Phani Cook M.D. [address] [place] [phone] documented as of this encounter Visit Diagnoses Diagnosis Preanesthetic Medical Exam- Primary Preoperative Exam documented in this encounter Additional Health Concerns Assessment Noted Time PHQ-9 Depression Total Score: 2 02/24/20 18 2:31 PM SPECIAL EVENTS DRIVER documented as of this encounter Care Teams Camera Prototyping Engineer Relationship Specialty Start Date End Date Willow Guajardo M.D. [address] [place] [phone] PCP - General Family Medicine 03/28/[address] [address] 10/11/17 documented as of this encounter
--- OUTSIDE RECORDS SUMMARY | 2023-09-30 08:40 | XMS_ITS | Encounter Summary ---
Author Organization [facility] Address [address] [place] [address] Care Team Providers Care Instructional Assistant Name Role Phone Willow Guajardo M.D. Primary Care Provider [phone] Reason for Visit * Auth/Cert (Routine) Specialty Diagnoses / Procedures Referred By Contac t Referred To Contact Diagnoses Primary Osteoarthritis Hip Right Primary Osteoarthritis Hip Right [M16.11] Procedures [place] COMP ASST [facility] [place] ROBOTIC SURGICAL SYS [place] ARTHRO ACETAB&FEM PROSTH (KRISTINE) ROBOTIC-ASSISTED HIP TOTAL ARTHROPLASTY Referral ID Status Reason Start Date Expiration Date Visits Re quested Visits Authorized [id number] 1 1 Encounter Details Date Type Department Care Team (Late st Contact Info) Description 07/14/2023 12:19 PM CDT Anesthesia Event Outpatient Procedure Center in [address] [phone] Charis Lee M.D. [address] [place] [phone] Anesthesia Record Procedure Summary Procedure Name Responsible Anesthesiologist Anesthesia Start Time Anesthesia Stop Time ROBOTIC-ASSISTED HIP TOTAL ARTHROPLASTY (Right: Hip) Charis Lee M.D. 07/14/23 1219 07/14/23 1415 Events Date Time Event Comment 07/14/2023 1040 1219 An Start Machine/Equipme nt Checked Infection Precautions Followed Procedure/Site Verified NPO Status Verified Supine Standard ASA Monitors Applied 1220 Anesthesia Time Out 1232 Turnover to Proceduralist 1303 Proc Start 1415 Turnover to ANE Staff 1415 an stop data 1415 An End I completed my handoff to the receiving staff during which we 1. Identified the patient 2. Identified the responsible provider 3. Reviewed the pertinent medical history 4. Discussed the surgical course 5. Reviewed intra-op anesthesia management and issues during anesthesia 6. Set expectations for post-procedure period 7. Allowed opportunity for questions and acknowledgement of understanding. 1416 Proc Fin Meds Name Total midazolam 1 mg/mL injection 2 mg propofol 10 mg/mL infusion 1,128.71 mg ceFAZolin injection 2,000 mg (ANCEF) 2 g dexAMETHasone injection 4 mg (DECADRON) 4 mg ondansetron 4 mg/2 mL injection 4 mg ketamine 10 mg/mL injection 20 mg dexmedeTOMIDine (PRECEDEX) injection 200 mcg/2 mL 40 mcg mepivacaine PF 2% injection 2.6 mL phenylephrine 20 mg/250 mL infusion 1.19 mg tranexamic acid in NaCl IVPB 1,000 mg (C YKLOKAPRON) 2 g Lactated Ringers Free Drip 1,999 mL * Agents No agents on file. * Blood No blood administrations on file. Lines, Drains, and Airways Type Details Placement Removal Wound N; Incision; Thigh; Anterior, Proximal, Right; aquacells and abductor pillow 07/14/23 1343 by Peripheral IV Placement Date: 10/29; Placement Time: 50; Catheter Size: 20 G; Orientation: Left; Location: Hand; Site Prep: Chlorhexidine (Preferred); Insertion Attempts: 1 07/14/23 0950 by Bushra Palmer R.N. documented in this encounter Social History Tobacco Use Types Packs/Day Years Used Date Smoking Tobacco: Never Passive Smoke Exposure: Never Smokeless Tobacco: Never Alcohol Use Standard Drinks/Week Comments Not Currently 0 (1 standard drink = 0.6 oz pure alcohol) 1 drink approx every 2 weeks. [facility] Utilities Answer Date Recorded In the past [...] week 03/05/2022 How often do you attend [facility] or mandaeism services? Patient declined 03/05/2022 Do you belong to any clubs o r organizations such as catholic groups, unions, fraternal or athletic groups, or [...] Answer Date Recorded PHQ-2 Score 0 11/18/2021 [facility] of Occupat ional Health - Occupational Stress [...] your living situation today? I have a [facility] place to live 07/14/2023 Education Answer [...] AM CDT documented as of this encounter OR Notes * Anesthesia Postprocedure Evaluation - Charis Lee M.D. - 07/14/2023 2:40 PM CDT Patient: Meeta Gomez Procedure Summary Date: 07/14/23 Room / Location: [place] [address] / [facility] - GI Anesthesia Start: 1219 Anesthesia Stop: 1415 Procedure: ROBOTIC-ASSISTED HIP TOTAL ARTHROPLASTY (Right: Hip) Diagnosis: Primary Osteoarthritis Hip Right (Primary Osteoarthritis Hip Right [M16.11]) Providers: John Prater M.D. Responsible Provider: Charis Lee M.D. Anesthesia Type: regional ASA Status: 3 Anesthesia Type: regional Last vitals Vitals Value Taken Time BP 98/68 07/14/23 1435 Temp Pulse 62 07/14/23 1440 Resp SpO2 100 % 07/14/23 1440 Vitals shown include unfiled device data. Please reference Vitals flowsheet for most recent vital signs. Anesthesia Post Evaluation Patient Disposition: general care unit Cardiovascular status: hemodynamics (HR & BP) acceptable Respiratory status: patent airway with spontaneous effort Temperature: normothermic Oxygen requirements: room air Level of consciousness: awake Pain score: pain adequately controlled and/or at baseline Post Op nausea/vomiting: none Hydration status: euvolemic * Anesthesia Procedure Notes - Bo Sharp APRN, CRNA, DNAP - 07/14/2023 12:52 PM CDTAssociated Order(s): Regional Block Regional Block Date/Time: 07/14/2023 12:23 PM Performed by: Bo Sharp APRN, CRNA, DNAP Authorized by: Charis Lee M.D. Location: OR PROCEDURE DETAILS: Block Indication: primary anesthetic Block Type - Neuraxial: spinal Positioning: sitting Approach: midline Level inserted: L4-5 Other levels attempted: L3-4 Block technique: landmark technique Injection technique: single injection Needle type: pencan Gauge: 25G Length: 10 CSF: yes Pain with needle advancement or injection of local anesthetic: no Injected Medications: Injection(s), anesthetic agent(s) and/or steroid; [...] confirmed in a procedural pause. PRE-PROCEDURE DETAILS: Appropriate hand hygiene, gown, cap, mask, protective eyewear, sterile gloves, skin preparation, sterile drape, and strict aseptic technique were utilized as applicable for the procedure.: yes Skin prep: chlorhexidine / alcohol SEDATION / ANESTHESIA Anesthesia method: local infiltration POST-PROCEDURE DETAILS: Procedure completed successfully: successful procedure Notable Events: none * Anesthesia Preprocedure Evaluation - Charis Lee M.D. - 07/14/2023 10:29 AM CDT Preprocedure Anesthesia & H&P Assessment Procedure Summary Date/Time: 07/14/23 1030 Procedure: ROBOTIC-ASSISTED HIP TOTAL ARTHROPLASTY (Right) Diagnosis: Primary Osteoarthritis Hip Right [M16.11] Pre-op diagnosis: Primary Osteoarthritis Hip Right [M16.11] Location: [place] [address] / [facility] - GI Providers: John Prater M.D. Pertinent components of the patient's history including current problem list, medical history, surgical history, family history, social history, medications and allergies were reviewed. Present illness and pre-op diagnosis were confirmed. The planned surgery / procedure was verified with the patient / legal guardian. The patient's general health condition remains unchanged RELEVANT COMORBID CONDITIONS Musculoskeletal (+) Primary Osteoarthritis Hip Right Cardiovascular and Mediastinum (+) Prosthesis Aortic Valve Other (+) Shelter Anticoagulant Treatment [Z79.01] EKG- NSR Hb 14.0, Cr 0.6 INR DOS 1.1 S/p AVR- Echo- 2019- EF 64%, gradient 10 OBJECTIVE PHYSICAL EXAMINATION Airway (HEENT) Mallampati: II TM Distance: >3 FB Neck ROM: Full Mouth Opening: >3 cm Upper Lip Bite Test Class: II Cardiovascular Rhythm: Regular Rate: Normal Cardiovascular Assessment: cardiovascular normal Functional Capacity: >4 METS Pulmonary Pulmonary Assessment: Clear General / Constitutional Constitutional Assessment: Normal General State of Health:: healthy appearing and calm Neurological Neurologic Assessment:??alert Dental Dental Assessment: dentition intact ASSESSMENT / PLAN ANESTHESIA PLAN ASA: 3 Anesthesia Plan: regional Patient seen and allergies reviewed, anesthesia plan and risks discussed directly with patient /legal guardian or through an certified veterinary technician. Risks/Benefits/Alternatives of Blood transfusion discussed with patient / legal guardian, includingan opportunity to ask questions and/or decline some or all transfusion therapies. The patient / legal guardian consented to the use of all blood products, as deemed medically necessary Approval to Proceed: approved for anesthesia documented in this encounter Plan of Treatment Upcoming Encounters Date Type Department Care Team (Latest Contact Info) Description 10/04/2023 9:15 AM CDT Anticoagulation Visit Department of Anticoagulation in [address] [phone] Willow Guajardo M.D. [address] [place] [phone] 10/05/2023 8:45 AM CDT Clinical Support Department of Rehabilitation Services in [address] [phone] Symone Trujillo APRN, C.N.P., D.N.P. [address] [place] [phone] Sonali Morrison P.T. 10/25/2023 8:30 AM CDT Clinical Support Department of Rehabilitation Services in [address] [phone] Symone Trujillo APRN, C.N.P., D.N.P. [address] [place] [phone] Sonali Morrison P.T. 12/16/2023 10:00 AM CDT Appointment Department of Radiology in [address] [phone] Phani Cook M.D. [address] [place] [phone] Discharge Disposition: Home or Self Care 12/20/2023 1:45 PM CDT Office Visit Department of Cardiovascular Diseases in [address] [phone] Phani Cook M.D. [address] [place] [phone] documented as of this encounter Procedures Procedure Name Priority Date/Time Associated Diagnosis Comments ANESTHESIA REGIONAL BLOCK Routine 07/14/2023 12:23 PM CDT documented in this encounter Results * Regional Block (07/14/2023 12:23 PM CDT) Narrative Bo Sharp APRN, CRNA DNAP - 07/14/2023 12:23 PM CDT Bo Sharp APRN, CRNA DNAP ? 07/14/2023 12:55 PM Regional Block [...] Charis Lee M.D. PROCEDURE/MINOR SURG ICAL ORDERABLES documented in this encounter Visit Diagnoses Not on filedocumented in this encounter Administered Medications Inactive Administered Medications - up to 3 most recent administrations Medication Order MAR Action Action Date Dose Rate Site ceFAZolin injection 2,000 mg (ANCEF) 2,000 mg (rounded from 1,800 mg = 25 mg/kg ? 72 kg), intravenous, Once, On Wed07/14/23 at 0930, For 1 dose, Intra-Op, Preoperatively within 1 hour prior to surgical incision If needed, reconstitute vial per package insert instructions. See IVAG for administration guidelines., Drug Monitoring Program: Pharmacist to adjust medication dosing based on indication and drug clearance factors., Indications: Prophylaxis, surgical Given 07/14/2023 12:49 PM CDT 2 g dexAMETHasone injection 4 mg (DECADRON) 4 mg, intravenous, Once, On Wed07/14/23 at 0930, For 1 dose, Pre-Op, call centre supervisor to OR Given 07/14/2023 12:32 PM CDT 4 mg dexmedeTOMIDine injection (PRECEDEX) intravenous, As needed, Starting on Wed07/14/23 at 1232, Anesthesia Intra-op Given 07/14/2023 1:10 PM CDT 20 mcg Given 07/14/2023 12:32 PM CDT 20 mcg ketamine injection (KETALAR) intravenous, As needed, Starting on Wed07/14/23 at 1236, Anesthesia Intra-op Given 07/14/2023 12:50 PM CDT 20 mg Lactated Ringer's intravenous, Continuous Infusion: Per Instructions PRN, Starting on Wed07/14/23 at 1219, Anesthesia Intra-op New Bag 07/14/2023 1:35 PM CDT New Bag 07/14/2023 12:19 PM CDT mepivacaine (PF) 20 mg/mL (2 %) injection (POLOCAINE) intrathecal, As needed, Starting on Wed07/14/23 at 1225, Anesthesia Intra-op Given 07/14/2023 12:25 PM CDT 2.6 mL midazolam (PF) injection (VERSED) intravenous, As needed, Starting on Wed07/14/23 at 1219, Anesthesia Intra-op Given 07/14/2023 12:19 PM CDT 2 mg ondansetron (PF) injection (ZOFRAN) intravenous, As needed, Starting on Wed07/14/23 at 1232, Anesthesia Intra-op Given 07/14/2023 12:32 PM CDT 4 mg phenylephrine 80 mcg/mL in NaCl 0.9% 250 mL infusion intravenous, Continuous Infusion: Per Instructions PRN, Starting on Wed07/14/23 at 1316, Anesthesia Intra-op New Bag 07/14/2023 1:16 PM CDT 0.3 mcg/kg/min 15.997 mL/hr propofol 10 mg/mL infusion (DIPRIVAN) intravenous, Continuous Infusion: Per Instructions PRN, Starting on Wed07/14/23 at 1227, Anesthesia Intra-op Rate/Dose Change 07/14/2023 2:07 PM CDT 50 mcg/kg/min 21.33 mL/hr Rate/Dose Change 07/14/2023 1:58 PM CDT 75 mcg/kg/min 31.9 95 mL/hr Rate/Dose Change 07/14/2023 1:44 PM CDT 125 mcg/kg/min 53. 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 [address] [place] [phone] PCP - General Family Medicine 03/28/[address] [place] [address] 10/11/17 documented as of this encounter
--- OUTSIDE RECORDS SUMMARY | 2023-09-30 08:40 | XMS_ITS | Encounter Summary ---
Author Organization [facility] Address [address] [place] [address] Care Team Providers Care Crossword Puzzle Maker Name Role Phone Willow Guajardo M.D. Primary Care Provider [phone] Encounter Details Date Type Department Care Team (Late st Contact Info) Description 07/06/2023 10:00 AM CDT Telemedicine Department of Orthopedic Surgery in [place], [place] [address] [place] [phone] Symone Trujillo APRN, C.N.P., D.N.P. [address] [place] [phone] Silvestre Cook, RClarenceN. [address] [place] [phone] Preoperative Exam Discharge Disposition: Home or Self Care Social History Tobacco Use Types Packs/Day Years Used Date Smoking Tobacco: Never Passive Smoke Exposure: Never Smokeless Tobacco: Never Alcohol Use Standard Drinks/Week Comments Not Currently 0 (1 standard drink = 0.6 oz pure alcohol) 1 drink approx every 2 weeks. [facility] Utilities Answer Date Recorded In the past 12 months has th e [employer], [employer], oil, or water [employer] threatened to shut off services in your [...] week 03/05/2022 How often do you attend [facility] or confucianism services? Patient declined 03/05/2022 Do you belong [...] Answer Date Recorded PHQ-2 Score 0 11/18/2021 [facility] of Occupat ional Health - Occupational [...] as of this encounter Progress Notes * Silvestre Cook R.N. - 07/06/2023 10:00 AM CDT Patient is scheduled for a Right Total Hip Arthroplasty on 07/14/[address] Prater. Patient attended the Total Joint Class and all material gone over and questions addressed after viewing the [facility] Total Joint video. Therapy portion was discussed. Instructions as to where to go and map provided. Phone number to call the night prior given and instructions discussed. Components discussed and demonstrated. Risks for side effects and complications discussed. Getting ready for surgery discussed as well as what to bring with to surgery, Hibiclens, showering, the use of clean sheets, towels and wash cloths discussed. Medications prior to surgery and what not to take discussed. Plan to change daily activities discussed. Integrative and healing therapy discussed. Plans for recovery discussed. No dental work for 4 weeks prior to surgery discussed. No elective dental work for six months after surgery discussed. Necessity of prophylaxis prior to dental procedures for up to oneyear after surgery unless immunocompromised in some way, then it is two years discussed. Necessity of a Caregiver after surgery discussed. Changes with work after surgery discussed. Getting home ready in preparation for surgery discussed. What to bring with to your surgery discussed. The day of surgery and what to expect discussed. Analgesia and medications pt will be sent home with discussed. Coughing, deep breathing and circulation aids discussed. Polar ice machine discussed. Traveling after surgery and prevention of blood clots discussed. Diet and foods high in fiber discussed. Managing your pain discussed. Incision care and prevention of infection discussed. Bathing status post surgery discussed. Wound vac vs bandage discussed and time length discussed. When to get emergency medical care discussed. Signs and symptoms of a possible infection discussed. Pharmacy portion viewed. Followup appt discussed. Patient was voiced understanding, and will call with any other questions or concerns. Patient was given the following education and pamphlets in their surgical packet: - Total Hip Replacement Surgery [id number] - Home Safety Tips [id number] - Bathroom Safety Equipment [id number] - Rehabilitation after Total Hip Replacement [id number] - Protecting Your Hip After Hip Replacement [id number] - Prior to Surgery Medication List [id number] - Important Information About Opioid Medications [id number] - Speak Up: Antibiotics [id number] - Acute Pain and the Healing Process [id number] - Intentional Rounding [id number] - Reducing Your Risk of Surgical Infection [id number] with Hibiclens Soap (2 Packets) - Surgical Site Infection: Reducing you Risk [id number] - Billing Question Card [id number] - [facility] Financial Clearance Business Card - Transportation Sheet Patient was given and discussed the following education & pamphlets. Patient voiced understanding and stated they will call with any other questions or concerns: - Authorization to Disclose Protected Health Information to Family and Friends [id number] - [facility] Checklist for Surgical Paitients [id number] - Discharge Planning [id number] Consult conducted via real-time audio/video technology by Silvestre Cook R.N. in [facility] [place] to the patient in Patient's Home documented in this encounter Plan of Treatment Upcoming Encounters Date Type Department Care Team (Latest Contact Info) Description 10/04/2023 9:15 AM CDT Anticoagulation Visit Department of Anticoagulation in [address] [phone] Willow Guajardo M.D. [address] [place] [phone] 10/05/2023 8:45 AM CDT Clinical Support Department of Rehabilitation Services in [address] [phone] Symone Trujillo APRN, C.N.P., D.N.P. [address] [place] [phone] Sonali Morrison, P.TClarence 10/25/2023 8:30 AM CDT Clinical Support Department of Rehabilitation Services in [address] [phone] Symone Trujillo APRN, ArvindNClarenceP., D.N.P. [address] [place] [phone] Sonali Morrison P.T. 12/16/2023 10:00 AM CDT Appointment Department of Radiology in [address] [phone] Phani Cook M.D. [address] [place] [phone] Discharge Disposition: Home or Self Care 12/20/2023 1:45 PM CDT Office Visit Department of Cardiovascular Diseases in [address] [phone] Phani Cook M.D. 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 [address] [place] [phone] PCP - General Family Medicine 03/28/[address] [address] 10/11/17 documented as of this encounter
--- OUTSIDE RECORDS SUMMARY | 2023-09-30 08:41 | XMS_ITS | Encounter Summary ---
Author Organization [facility] Address [address] [place] [address] Care Team Providers Care Benefit Director Name Role Phone Willow Guajardo M.D. Primary Care Provider [phone] Reason for Referral * Outpatient (Routine) - Authorized Specialty Diagnoses / Procedures Referred By Contac t Referred To Contact Orthopedic Surgery Symone Trujillo APRN, C.N.P., D.N.P. [address] [place] [phone] [facility] Region Referral ID Status Reason Start Date Expiration Date V isits Requested Visits Authorized [id number] Authorized 05/03/2023 11/01/2024 1 1 ITY PROCESS LEAD * Outpatient (Routine) - Closed Specialty Diagnoses / Procedures Referred By Contac t Referred To Contact Orthopedic Surgery Symone Trujillo APRN, C.N.P., D.N.P. [address] [place] [phone] [facility] Region Referral ID Status Reason Start Date Expiration Date Visits Re quested Visits Authorized [id number] Closed 05/03/2023 11/01/2024 1 1 ITY PROCESS LEAD * Specialty Diagnoses / Procedures Referred By Contac t Referred To Contact John Prater M.D. [address] [place] [address] [facility] Region Referral ID Status Reason Start Date Expiration Date Visits Re quested Visits Authorized ITY PROCESS LEAD * Physical Therapy (Routine) - Closed Specialty Diagnoses / Procedures Referred By Contac t Referred To Contact Diagnoses Pain Hip Right Procedures PT Evaluate and treat Symone Trujillo APRN, C.N.PClarence, D.N.P. [address] [place] [phone] [facility] Region Referral ID Status Reason Start Date Expiration Date Visits Re quested Visits Authorized [id number] Closed 05/03/2023 05/02/2024 1 1 ITY PROCESS LEAD * Outpatient (Routine) - Closed Specialty Diagnoses / Procedures Referred By Contac t Referred To Contact Anesthesiology Diagnoses Preoperative Exam Symone Trujillo APRN, C.N.P., D.N.P. [address] [place] [phone] [facility] Region Referral ID Status Reason Start Date Expiration Date Visits Re quested Visits Authorized [id number] Closed 05/03/2023 11/01/2024 1 1 ITY PROCESS LEAD * Outpatient (Routine) - Authorized Specialty Diagnoses / Procedures Referred By Alexx espinoza Referred To Contact Family Medicine Diagnoses Preoperative Exam Symone Trujillo APRN, C.N.P., D.N.P. [address] [place] [address] [facility] Region Referral ID Status Reason Start Date Expiration Date V isits Requested Visits Authorized [id number] Authorized 05/03/2023 11/01/2024 1 1 ITY PROCESS LEAD * MRI/CAT/PET Scan (Routine) - Closed Specialty Diagnoses / Procedures Referred By Alexx espinoza Referred To Contact Radiology Diagnoses Preoperative Exam Procedures CT Hip Right without IV Contrast Symone Trujillo APRN, C.N.P., D.N.P. [address] [place] [phone] [facility] Region Referral ID Status Reason Start Date Expiration Date Visits Re quested Visits Authorized [id number] Closed 05/03/2023 05/02/2024 1 1 ITY PROCESS LEAD Reason for Visit * Reason Onset Date Comments Surgical Listing 05/03/2023 Encounter Details Date Type Department Care Team (Latest Contact Info) Description 05/03/2023 Clinical Communication Department of Orthopedic Surgery in [address] [phone] John Prater M.D. [address] [place] [phone] Surgical Listing Social History Tobacco Use Types Packs/Day Years Used Date Smoking Tobacco: Never Passive Smoke Exposure: Never Smokeless Tobacco: Never Alcohol Use Standard Drinks/Week Comments Not Currently 0 (1 standard drink = 0.6 oz pure alcohol) 1 drink approx every 2 weeks. [facility] Utilities Answer Date Recorded In the past 12 months has th e [employer], gas, oil, or water [employer] threatened to shut off services in your [...] How often do you attend chur or yazidism services? Patient declined 03/05/2022 Do you belong to any clubs o r organizations such as moravian groups, unions, fraternal or athletic groups, or [...] Answer Date Recorded PHQ-2 Score 0 11/18/2021 [facility] - Occupational Stress Questionnaire Answer Date Recorded [...] AM CDT documented as of this encounter Miscellaneous Notes * Telephone Encounter - Melissa Diamond R.N. - 05/03/2023 2:25 PM CST Added to book with place salgado. Case request on Desk. ITY PROCESS LEAD * Telephone Encounter - Sonam Camacho R.N. - 05/03/2023 10:51 AM QUALITY PROCESS LEAD ----- Message from Symone Trujillo APRN, C.N.P., D.N.P. sent at 05/02/2023 12:40 PM QUALITY PROCESS LEAD ----- Can we contact her in regard to getting her on the schedule for a Tino robotic CT-guided right total hip arthroplasty? I have spoke with her. Thank you! ITY PROCESS LEAD documented in this encounter Plan of Treatment Upcoming Encounters Date Type Department Care Team (Latest Contact Info) Description 10/04/2023 9:15 AM CDT Anticoagulation Visit Department of Anticoagulation in [place] [address] [place] [address] Willow Guajardo M.D. [address] [place] [phone] 10/05/2023 8:45 AM CDT Clinical Support Department of Rehabilitation Services in [address] [phone] Symone Trujillo APRN, C.N.P., D.N.P. [address] [place] [phone] Sonali Morrison PVicky 10/25/2023 8:30 AM CDT Clinical Support Department of Rehabilitation Services in [address] [phone] Symone Trujillo APRN, Marvel, D.N.P. [address] [place] [phone] Sonali Morrison P.T. 12/16/2023 10:00 AM CDT Appointment Department of Radiology in [address] [phone] Phani Cook M.D. [address] [place] [phone] Discharge Disposition: Home or Self Care 12/20/2023 1:45 PM CDT Office Visit Department of Cardiovascular Diseases in [place], [place] [address] [place] [phone] Phani Cook M.D. [address] [place] [phone] Scheduled Referrals Name Type Priority Associated Diagnoses Order Schedule Primary Care - NICOLE consult (clinic) Outpatient Referral Routine Preoperative Exam Expected: 06/21/2023, Expires: 07/31/2024 Pre Operative Evaluation NICOLE nurse consult (clinic) Outpatient Referral Routine Preoperative Exam Expected: 07/06/2023, Expires: 07/31/2024 Orthopedic Surgery - Group education visit (clinic) Outpatient Referral Routine Preoperative Exam Expected: 06/29/2023, Expires: 07/31/2024 Orthopedic Surgery office visit (clinic) Outpatient Referral Routine 1 Occurrence s starting 05/03/2023 until 07/31/2024 Orthopedic Surgery Post Op (clinic) Outpatient Referral Routine Expected: 07/30/2023, Expires: 07/31/2024 documented as of this encounter Results * CT Hip Right without IV Contrast (06/14/2023 7:56 AM CDT) Anatomical Region Laterality Modality Lower Extremity, Hip, Muscul oskeletal RST LOS, Musculoskeletal ARZ LOS, Muskuloskeletal FLA LOS Right Compu dahiana Tomography Impressions 06/14/2023 8:03 AM CDT Moderate to severe degenerative arthritis of the right hip. Narrative 06/14/2023 8:03 AM CDT EXAM: ??CT HIP RIGHT WITHOUT IV CONTRAST No 3D post-processing performed. COMPARISON: ??04/15/2023 radiographs, 04/29/2023 MRI FINDINGS: ?? Moderate to severe degenerative arthritis of the right hip with acetabular subchondral cystic change and slight femoral head subchondral sclerosis. No fracture. Hip joint effusion. Lower lumbar spondylosis. Degenerative changes of sacroiliac joints and left hip. Possible cyst or follicle the right ovary. No suspicious findings at the knees. Procedure Note Carl Herrera M.D. - 06/14/2023 EXAM: CT HIP RIGHT WITHOUT IV CONTRAST No 3D post-processing performed. COMPARISON: 04/15/2023 radiographs, 04/29/2023 MRI FINDINGS: Moderate to severe degenerative arthritis of the right hip with acetabularsubchondral cystic change and slight femoral head subchondral sclerosis.No fracture. Hip joint effusion. Lower lumbar spondylosis. Degenerativechanges of sacroiliac joints and left hip. Possible cyst or follicle the right ovary. No suspiciousfindings at the knees. IMPRESSION: Moderate to severe degenerative arthritis of the right hip. Symone Trujillo APRN C.N.P., D.N.P. IMG CT PROCEDURES documented in this encounter Visit Diagnoses Diagnosis Preoperative Exam- Primary Pain Hip Right Preoperative Exam documented in this encounter Additional Health Concerns Assessment Noted Time PHQ-9 Depression Total Score: 2 02/24/20 18 2:31 PM QUALITY PROCESS LEAD documented as of this encounter Care Teams Benefit Director Relationship Specialty Start Date End Date Willow Guajardo M.D. [id number] [place] [phone] PCP - General Family Medicine 03/28/[address] [place] [address] 10/11/17 documented as of this encounter
--- OUTSIDE RECORDS SUMMARY | 2023-09-30 08:41 | XMS_ITS | Encounter Summary ---
Author Organization [facility] Address [address] [place] [address] Care Team Providers Care Lip Reading Teacher Name Role Phone Willow Guajardo M.D. Primary Care Provider [phone] Reason for Referral * Outpatient (Routine) - Authorized Specialty Diagnoses / Procedures Referred By Alexx t Referred To Contact Family Medicine Willow Guajardo M.D. [address] [place] [phone] [facility] Region Referral ID Status Reason Start Date Expiration Date V isits Requested Visits Authorized [id number] Authorized 06/07/2023 12/06/2024 1 1 Reason for Visit * Reason Onset Date Comments Anticoagulation 06/07/2023 CCM Enrollment Encounter Details Date Type Department Care Team (Latest Contact Info) Description 06/07/2023 Clinical Communication Department of Anticoagulation in [place], [place] [address] [place] [phone] Anjali Wilson R.N. Anticoagulation ([facility] Enrollment) Social History Tobacco Use Types Packs/Day Years Used Date Smoking Tobacco: Never Passive Smoke Exposure: Never Smokeless Tobacco: Never Alcohol Use Standard Drinks/Week Comments Not Currently 0 (1 standard drink = 0.6 oz pure alcohol) 1 drink approx every 2 weeks. [facility] Utilities Answer Date Recorded In the past 12 months has e [employer], [employer] oil, or water [employer] threatened to shut off services in your [...] week 03/05/2022 How often do you attend [facility] or faith services? Patient declined 03/05/2022 Do you belong to any clubs o r organizations such as gnosticism groups, unions, fraternal or athletic groups, or [...] Answer Date Recorded PHQ-2 Score 0 11/18/2021 [facility] - Occupational Stress Questionnaire Answer [...] your living situation today? I have a [facility] place to live 04/04/2023 Education Answer [...] encounter Miscellaneous Notes * Telephone Encounter - Teresa Payne R.N. - 06/07/2023 9:15 AM CDT Recommendation for CCM billing from Primary Care Anticoagulation Program. ACTION ITEM: Please reply with YES if you wish to proceed with enrollment in the anticoagulation program which includes billing for the service using CCM. If you do not want the patient enrolled in the anticoagulation program and you want to manage their warfarin dosing, respond no. Meeta Villanueva is eligible for Chronic Care Management requiring moderate or high complexity medical decision making for two or more chronic illnesses placing the patient at significant risk ofdeath, acute exacerbation/decompensation, or functional decline and 3 or more medications It is required that a recommendation from you be documented in the medical record prior to using these billing codes for this patient. CCM allows for management of chronic conditions and reimbursement for services provided outside of [id number] office visits. If you agree with this recommendation a letter will be sent to the patient via portal or mail and the anticoagulation nursing team will follow up with the patient. Additional information related to use of specific codes and determining moderate to complex decision making (if applicable) is found here: Provider Recommendation Reference Guide. Please assure your documentation as a provider supports the level of complexity recommended. * Telephone Encounter - Anjali Wilson R.N. - 06/07/2023 8:52 AM CDT Consent for Chronic Care Management (CCM) requiring moderate or high complexity medical decision making was obtained from the patient/patient's medical power of workers compensation attorney. The patient/patient's medical power of workers compensation attorney was informed that a charge, based on the level of service, will be billed to their insurance each month. Only one health care provider can provide these services at a time. Patients have the right to stop these services at any time by letting their care team know. The patient/patient's medical power of workers compensation attorney can contact their insurance company if they have any questions on coverage or [facility] Patient Account Services if they have any questions about their bill. documented in this encounter Plan of Treatment Upcoming Encounters Date Type Department Care Team (Latest Contact Info) Description 10/04/2023 9:15 AM CDT Anticoagulation Visit Department of Anticoagulation in [place] [address] [place] [address] Willow Guajardo M.D. [address] [place] [phone] 10/05/2023 8:45 AM CDT Clinical Support Department of Rehabilitation Services in [address] [phone] Symone Trujillo APRN, C.N.P., D.N.P. [address] [place] [phone] Sonali Morrison, P.T. 10/25/2023 8:30 AM CDT Clinical Support Department of Rehabilitation Services in [address] [phone] Symone Trujillo APRN, C.N.P., D.N.P. [address] [place] [phone] Sonali Morrison, P.T. 12/16/2023 10:00 AM CDT Appointment Department of Radiology in [address] [phone] Phani Cook M.D. [address] [place] [phone] Discharge Disposition: Home or Self Care 12/20/2023 1:45 PM CDT Office Visit Department of Cardiovascular Diseases in [address] [phone] Phani Cook M.D. [address] [place] [phone] Scheduled Referrals Name Type Priority Associated Diagnoses Orde r Schedule Family Medicine office visit (clinic) Outpatient Referral Routine Expected: 06/07/2023, Expires: 09/05/2024 documented as of this encounter Visit Diagnoses Diagnosis Prosthesis Aortic Valve- Primary [employer] Anticoagulant Treatment [Z79.01] Monitoring For Therapeutic Drug Therapy [Z51.81] documented in this encounter Additional Health Concerns Assessment Noted Time PHQ-9 Depression Total Score: 2 02/24/20 18 2:31 PM TRUST ADVISOR documented as of this encounter Care Teams Lip Reading Teacher Relationship Specialty Start Date End Date Willow Guajardo M.D. [address] [place] [phone] PCP - General Family Medicine 03/28/[address] [address] 10/11/17 documented as of this encounter
--- OUTSIDE RECORDS SUMMARY | 2023-09-30 08:41 | XMS_ITS | Encounter Summary ---
Author Organization [facility] Address [address] [place] [address] Care Team Providers Care Education Coordinator Name Role Phone Willow Guajardo M.D. Primary Care Provider [phone] Reason for Visit * Physical Therapy (Routine) - Canceled Specialty Diagnoses / Procedures Referred By Alexx t Referred To Contact Diagnoses Pain Pelvic Female Procedures PT Ongoing treatment [address] [phone] [facility] Region Referral ID Status Reason Start Date Expiration Date V isits Requested Visits Authorized [id number] Canceled 02/03/2023 03/07/2024 99 [phone] Encounter Details Date Type Department Care Team (Late st Contact Info) Description 06/22/2023 8:00 AM CDT Clinical Support Department of Rehabilitation Services in [address] [phone] Louann Govea C.NClarencePClraence [address] [place] [phone] Sonali Morrison P.T. Pain Pelvic Female Social History Tobacco Use Types Packs/Day Years Used Date Smoking Tobacco: Never Passive Smoke Exposure: Never Smokeless Tobacco: Never Alcohol Use Standard Drinks/Week Comments Not Currently 0 (1 standard drink = 0.6 oz pure alcohol) 1 drink approx every 2 weeks. [facility] [employer]ities Answer Date Recorded In the past 12 months has e [employer], [employer], oil, or water [employer] threatened to shut off [...] any clubs o r organizations such as religious groups, unions, fraternal or athletic groups, or [...] Answer Date Recorded PHQ-2 Score 0 11/18/2021 [facility] [place] Occupat ional Health - Occupational Stress [...] Progress Notes * Sonali Morrison P.T. - 06/22/2023 8:00 AM CDT Physical Therapy Outpatient Treatment Note SUBJECTIVE Patient's Name: Meeta Perdomotonnysamuel Referring Provider: No ref. provider found Visit Diagnosis: 1. Pain Pelvic Female Payor: [facility] / Plan: [facility] / Product Type: Medicaid HMO / No data recorded Epic Visit Count: 17 Patient comments: pt presents to PT today doing well. Reports after last session she was quite sorefor several days but thinks it could be tied to her menstrual cycle. Did not try the ball exerciseswith lumbar extension. OBJECTIVE Ortho Exam Limp with ambulation with [...] hip musculature piror to KRISTINE surgery in July. Reviewed mini squats from higher surface if painfree OK to do and any of the supine exs from piror sessions letting pain be her guide. E-Stim unattended: IFC current used B lumbar spine, pt prone, machine time 15 min, intensity up to 32 Mechanical Lumbar Traction: intermittent pull - lower pelvic position for lumbar belt - with 80 lbsintensity at 60 sec and 60 lbs x 20 sec, machine time 15 [...] PT primarily focus on her low back Functional Goals and Timeframes: PT Goal #1: [...] Patient has a right KRISTINE scheduled for late July 2023. State she would like tocontinue with lumbar focus with her therapy sessions due to her L5-S1 disc having a disc bulge alsoseen on imaging and she reports right sided low back tightness and some right foot tingling intermittently. Time Spent with Patient Modalities Mechanical Traction (min): 15 min Electrical Stimulation - Unattended (min) : 15 min Therapeutic Interventions Manual Therapy (min): 15 min Time Tracking Total Timed Units (min): 15 min Total Treatment Time (min): 45 min documented in this encounter Plan of Treatment Upcoming Encounters Date Type Department Care Team (Latest Contact Info) Description 10/04/2023 9:15 AM CDT Anticoagulation Visit Department of Anticoagulation in [place], [place] [address] [place] [address] Willow Guajardo M.D. [address] [place] [phone] 10/05/2023 8:45 AM CDT Clinical Support Department of Rehabilitation Services in [address] [phone] Symone Trujillo APRN, C.N.P., D.N.P. [address] [place] [phone] Sonali Morrison PVicky 10/25/2023 8:30 AM CDT Clinical Support Department of Rehabilitation Services in [address] [phone] Symone Trujillo APRN, C.N.P., D.N.P. [address] [place] [phone] Sonali Morrison PVicky 12/16/2023 10:00 AM CDT Appointment Department of Radiology in [address] [phone] Phani Cook M.D. [address] [place] [phone] Discharge Disposition: Home or Self Care 12/20/2023 1:45 PM CDT Office Visit Department of Cardiovascular Diseases in [place], [place] [address] [place] [phone] Phani Cook M.D. [address] [place] [phone] documented as of this encounter Visit Diagnoses Diagnosis Pain Pelvic Female documented in this encounter Additional Health Concerns Assessment Noted Time PHQ-9 Depression Total Score: 2 02/24/20 18 2:31 PM MANAGER BUSINESS PROCESS documented as of this encounter Care Teams Education Coordinator Relationship Specialty Start Date End Date Willow Guajardo M.D. [address] [place] [phone] PCP - General Family Medicine 03/28/[address] [place] [address] 10/11/17 documented as of this encounter
--- OUTSIDE RECORDS SUMMARY | 2023-09-30 08:41 | XMS_ITS | Encounter Summary ---
Author Organization [facility] Address [address] [place] [address] Care Team Providers Care Valve Seater Operator Name Role Phone Willow Guajardo M.D. Primary Care Provider [phone] Reason for Visit * Physical Therapy (Routine) - Canceled Specialty Diagnoses / Procedures Referred By Alexx t Referred To Contact Diagnoses Pain Pelvic Female Procedures PT Ongoing treatment [address] [phone] [facility] Region Referral ID Status Reason Start Date Expiration Date V isits Requested Visits Authorized [id number] Canceled 02/03/2023 03/07/2024 99 99 Encounter Details Date Type Department Care Team (Late st Contact Info) Description 06/29/2023 8:00 AM CDT Clinical Support Department of Rehabilitation Services in [address] [phone] Louann Govea C.NClarencePClarence [address] [place] [phone] Sonali Morrison P.T. Pain Pelvic Female Social History Tobacco Use Types Packs/Day Years Used Date Smoking Tobacco: Never Passive Smoke Exposure: Never Smokeless Tobacco: Never Alcohol Use Standard Drinks/Week Comments Not Currently 0 (1 standard drink = 0.6 oz pure alcohol) 1 drink approx every 2 weeks. [facility] [employer] Answer Date Recorded In the past 12 months has e [employer], [employer], oil, or water [employer] threatened to shut off services in your [...] How often do you attend chur or quaker services? Patient declined 03/05/2022 Do you belong to any clubs o r organizations such as mu-ism groups, unions, fraternal or athletic groups, or [...] Answer Date Recorded PHQ-2 Score 0 11/18/2021 [facility] Occupat ional Health - Occupational Stress [...] Progress Notes * Sonali Morrison P.T. - 06/29/2023 8:00 AM CDT Physical Therapy Outpatient Treatment Note SUBJECTIVE Patient's Name: Meeta Perdomotaisha Referring Provider: No ref. provider found Visit Diagnosis: 1. Pain Pelvic Female Payor: [facility] / Plan: [facility] CARE / Product Type: Medicaid HMO / No data recorded Epic Visit Count: 18 Patient comments: pt presents to PT today doing well. States she had almost a week relief after herlast session here, has continued to have minimal if any radicular symptoms into her right foot. OBJECTIVE Ortho Exam Limp with ambulation with [...] tingling intermittently. Time Spent with Patient Modalities Electrical Stimulation [...] CDT Anticoagulation Visit Department of Anticoagulation in [place] [address] [place] [phone] Willow Guajardo M.D. [address] [place] [phone] 10/05/2023 8:45 AM CDT Clinical Support Department of Rehabilitation Services in [address] [phone] Symone Trujillo APRN, C.N.P., D.N.P. [address] [place] [phone] Sonali Morrison P.Mynor 10/25/2023 8:30 AM CDT Clinical Support Department of Rehabilitation Services in [address] [phone] Symone Trujillo APRN, C.N.P., D.N.P. [address] [place] [phone] Sonali Morrison P.TClarence 12/16/2023 10:00 AM CDT Appointment Department of Radiology in [address] [phone] Phani Cook M.D. [address] [place] [phone] Discharge Disposition: Home or Self Care 12/20/2023 1:45 PM CDT Office Visit Department of Cardiovascular Diseases in [place], [place] [address] [place] [phone] Phani Cook M.D. [address] [place] [phone] documented as of this encounter Visit Diagnoses Diagnosis Pain Pelvic Female documented in this encounter Additional Health Concerns Assessment Noted Time PHQ-9 Depression Total Score: 2 02/24/20 18 2:31 PM [employer] documented as of this encounter Care Teams Valve Seater Operator Relationship Specialty Start Date End Date Willow Guajardo M.D. [address] [place] [phone] PCP - General Family Medicine 03/28/[address] [place] [address] 10/11/17 documented as of this encounter
== END 2023-09-30 08:35 | disposition home or self-care (01) ==
PROVIDERS: PCP Nurse Practitioner Family; Visit Provider Nurse Practitioner Family
DX: Z00.00 Encounter for general adult medical examination without abnormal findings (principal); Z13.6 Encounter for screening for cardiovascular disorders; Z13.0 Encounter for screening for diseases of the blood and blood-forming organs and certain disorders involving the immune mechanism
CPT/HCPCS: 80061; 85025

== ENCOUNTER 2024-03-07 08:05 | Outpatient (CLI) | payer BC, SELFPAY | END 2024-03-07 08:06 | disposition home or self-care (01) | PROVIDERS: PCP Nurse Practitioner Family; Visit Provider Nurse Practitioner Family | DX: L65.9 Nonscarring hair loss, unspecified (principal); Z13.21 Encounter for screening for nutritional disorder; Z13.29 Encounter for screening for other suspected endocrine disorder; Z13.228 Encounter for screening for other metabolic disorders | CPT/HCPCS: 80053; 82180; 82306; 82607; 82627; 82746; 84207; 84403; 84443; 84446; 84590 ==

== ENCOUNTER 2024-10-02 08:25 | Outpatient (CLI) | payer BC, SELFPAY | END 2024-10-02 08:26 | disposition home or self-care (01) | PROVIDERS: PCP Nurse Practitioner Family; Visit Provider Nurse Practitioner Family | DX: Z00.00 Encounter for general adult medical examination without abnormal findings (principal); M85.80 Other specified disorders of bone density and structure, unspecified site; R53.83 Other fatigue; R79.0 Abnormal level of blood mineral; T56.4X1A Toxic effect of copper and its compounds, accidental (unintentional), initial encounter; T56.891A Toxic effect of other metals, accidental (unintentional), initial encounter | CPT/HCPCS: 80053; 80061; 82306; 82525; 82728; 83735; 84207; 84439; 84443; 84480; 84630; 85025 ==